=== PATIENT | female | born 1950 | race African-American/Black ===

== ENCOUNTER 2016-11-26 07:40 | Emergency (ER) | payer OTHER, MEDICAID ==
[~2016-11-26] VITALS: Ht 160 cm; Wt 88.9 kg
[~2016-11-26 07:40] MED LIST: AGG25C; CLON0.2T; FURO40TA4; GABA-494; GLIM4TAB42; MELO-86; METF-372; OMEPRAZOLE CAP 40MG; QUET50TA25; SERT-274
[2016-11-26] MEDS ORDERED: SODIUM CHLORIDE 0.9% 1,000 ML IV ONE (09:48)
[2016-11-26] MEDS ORDERED: ASPirin 81 mg TAB PO ONE (10:00)
[2016-11-26 11:37] VITALS: BP 162/87
== END 2016-11-26 13:33 | disposition left against medical advice (07) ==
LOC: EDBD 07:40 → ER 07:40
DX: I50.9 Heart failure, unspecified (principal); E11.9 Type 2 diabetes mellitus without complications; F17.210 Nicotine dependence, cigarettes, uncomplicated; Z79.84 Long term (current) use of oral hypoglycemic drugs; Z88.0 Allergy status to penicillin
CPT/HCPCS: 71010; 93005

== ENCOUNTER 2016-12-22 01:56 | Emergency (ER) | payer OTHER, MEDICAID ==
[~2016-12-22] VITALS: Ht 154.9 cm; Wt 113.4 kg
[2016-12-22 03:20] VITALS: BP 97/50
[2016-12-22] MEDS ORDERED: ALBUTEROL SULF 2.5 MG/0.5ML(0.5%) NEB SOLN HHN STA (03:29)
[2016-12-22] MEDS ORDERED: IPRATROPIUM BROM 0.5 MG/2.5ML INH SOL NEB ONE (03:30)
[2016-12-22 03:42] LABS: Eosinophils # (auto) 0 uL; Eosinophils % (auto) 0.1 % (0.0-7.0); Neutrophils # (auto) 8.4 uL; White Blood Cell 10.7 10^3/uL (4.4-10.8)
[2016-12-22 03:43] LABS: Basophils # (auto) 0.1 uL; Basophils % (auto) 0.7 % (0.0-2.0); Hematocrit 54.7 % (36.0-46.0); Hemoglobin 18.3 g/dL (12.2-16.2); Lymphocytes # (auto) 1.5 uL; Lymphocytes % (auto) 13.9 % (10.0-50.0); Mean Corpuscular Hemoglobin 28.1 pg (28.0-32.0); Mean Corpuscular Hgb Conc. 33.4 g/dL (32.0-36.0); Mean Corpuscular Volume 84.1 fL (80.0-100.0); Mean Platelet Volume 9.3 fL (6.9-10.8); Monocytes # (auto) 0.7 uL; Monocytes % (auto) 6.9 % (0.0-12.0); Neutrophils % (auto) 78.4 % (37.0-80.0); Nucleated Red Blood Cells % 0.1 %; Platelet Count (auto) 243 10^3/uL (140-450)
[2016-12-22 04:07] LABS: Albumin 3.3 g/dL (3.4-5.0); Alkaline Phosphatase 167 U/L (45-117); Anion Gap 13 (5-15); Aspartate Aminotransferase 9 U/L (15-37); BUN/Creatinine Ratio 11.6; Bilirubin, Total 0.6 mg/dL (0.2-1.0); Blood Urea Nitrogen 28 mg/dL (7-18); Calcium 9.5 mg/dL (8.5-10.1); Carbon Dioxide 22 mmol/L (21-32); Chloride 94 mmol/L (98-107); GFR African American 26 mL/min; GFR Non-African American 21 mL/min; Potassium 4.7 mmol/L (3.5-5.1); Sodium 129 mmol/L (136-145); Total Protein 9.1 g/dL (6.4-8.2)
[2016-12-22 04:08] LABS: B-Type Natriuretic Peptide 11.61 pg/mL (0-100)
[2016-12-22 04:09] LABS: Temperature: 21.9 C (20.0-25.0)
[2016-12-22 04:15] LABS: Glucose 422 mg/dL (74-106)
== END 2016-12-22 04:10 | disposition left against medical advice (07) ==
LOC: EDBD 01:56 → ER 02:04
DX: R06.02 Shortness of breath (principal); N28.9 Disorder of kidney and ureter, unspecified; D75.1 Secondary polycythemia; I10 Essential (primary) hypertension; E11.9 Type 2 diabetes mellitus without complications; J44.9 Chronic obstructive pulmonary disease, unspecified
CPT/HCPCS: 36415; 71010; 80053; 83880; 84484; 85025; 93005; 94640; 99285; J7040

== ENCOUNTER 2017-12-21 16:48 | Emergency (ER) | payer OTHER, MEDICAID ==
[~2017-12-21] VITALS: Ht 157.5 cm; Wt 81.6 kg
[~2017-12-21 16:48] MED LIST changes: -GABA-494; +GABA100C9; -MELO-86; +MELO1TAB56
[2017-12-21 16:57] VITALS: BP 157/107
== END 2017-12-21 21:11 | disposition left against medical advice (07) ==
LOC: ER 16:48 → EDUNIT# 16:48 → EDBD 16:48 → ER 21:11
DX: M25.512 Pain in left shoulder (principal); Z53.21 Procedure and treatment not carried out due to patient leaving prior to being seen by health care provider
CPT/HCPCS: 73030

== ENCOUNTER 2018-05-18 10:37 | Inpatient (IN) | payer OTHER, MEDICAID ==
[~2018-05-18] VITALS: Ht 160 cm; Wt 90.7 kg
[2018-05-18 13:27] LABS: Basophils # (auto) 0 uL; Basophils % (auto) 0.4 % (0.0-2.0); Eosinophils # (auto) 0.1 uL; Eosinophils % (auto) 1.2 % (0.0-7.0); Hematocrit 47.5 % (36.0-46.0); Hemoglobin 15.2 g/dL (12.2-16.2); Lymphocytes # (auto) 2.7 uL; Lymphocytes % (auto) 42.1 % (10.0-50.0); Mean Corpuscular Hemoglobin 27.9 pg (28.0-32.0); Mean Corpuscular Hgb Conc. 31.9 g/dL (32.0-36.0); Mean Corpuscular Volume 87.5 fL (80.0-100.0); Monocytes # (auto) 0.3 uL; Monocytes % (auto) 5.2 % (0.0-12.0); Neutrophils # (auto) 3.3 uL; Neutrophils % (auto) 51.1 % (37.0-80.0); Nucleated Red Blood Cells % 0.1 %; Platelet Count (auto) 204 10^3/uL (140-450); Red Blood Cells 5.43 10^6/uL (4.0-5.20); Red Cell Distribution Width 16.3 % (11.8-14.3); White Blood Cell 6.4 10^3/uL (4.4-10.8)
[2018-05-18 13:37] LABS: Partial Thromboplastin Time 25.7 sec (23.78-33.04); Prothrombin Time 10.7 sec (9.27-12.13)
[2018-05-18 13:43] LABS: Alanine Aminotransferase 21 U/L (13-56); Albumin 3.4 g/dL (3.4-5.0); Anion Gap 6 (5-15); Aspartate Aminotransferase 12 U/L (15-37); BUN/Creatinine Ratio 18.6; Blood Urea Nitrogen 46 mg/dL (7-18); Calcium 9.1 mg/dL (8.5-10.1); Carbon Dioxide 27 mmol/L (21-32); Chloride 101 mmol/L (98-107); GFR African American 25 mL/min; GFR Non-African American 21 mL/min; Glucose 248 mg/dL (74-106); Potassium 4.8 mmol/L (3.5-5.1); Sodium 134 mmol/L (136-145)
[2018-05-18 13:47] LABS: Alkaline Phosphatase 142 U/L (45-117); Bilirubin, Total 0.4 mg/dL (0.2-1.0); Total Protein 7.7 g/dL (6.4-8.2)
[2018-05-18] MEDS ORDERED: PROMETHAZINE HCL 25 MG/ML 1ML IV PRN (16:30)
[2018-05-18] MEDS ORDERED: cloNIDine HCL 0.1 MG TAB PO PRN (16:30)
[2018-05-18] MEDS: SODIUM CHLORIDE 0.9% 1,000 ML IV SCH (16:30)
[2018-05-18] MEDS ORDERED: NITROGLYCERIN 0.4 MG SL TAB SL PRN (16:30)
[2018-05-18] MEDS ORDERED: LACTULOSE 20Gm/30ML SOLN PO PRN (16:30)
[2018-05-18] MEDS ORDERED: DEXTROSE (50%) 50ML SYRG IV PRN (16:30)
[2018-05-18] MEDS ORDERED: MORPHINE SULFATE 4 MG/ML SYR/VIAL IV PRN (16:30)
[2018-05-18] MEDS ORDERED: TEMAZEPAM 15 MG CAP PO PRN (16:30)
[2018-05-18 17:25] LABS: Folate (Folic Acid) 8.22 ng/mL (5.38-24)
--- NOTE | 2018-05-18 17:42 | NUR ---
Telemetry admit from ER ALFONSO TRIPATHI admitted to Telemetry unit after SBAR received. Patient oriented to Isabel Rodgers, primary RN, unit, room, bed, and unit policies regarding patient care and visiting hours. Patient A&O x3, with no c/o pain. Patient now on continuous telemetry monitoring, tele box #17 and telemetry reading on arrival to unit is SR. Patient placed on bedside oxygen, weighed by bedscale and encouraged to call if they need something. All questions and concerns addressed, patient verbalized understanding.
[2018-05-18] MEDS: InsuLIN REG 1unit/0.01ml Soln (100units/ml) SC SCH ×2 (18:00→22:00)
[2018-05-18 18:55] LABS: Urine Bacteria FEW /hpf (None Seen); Urine Blood Negative /uL (Negative); Urine Mucus FEW (None Seen); Urine Specific Gravity 1.007 (1.001-1.035); Urine WBC <1 /hpf (0 - 5)
[2018-05-18 19:10] LABS: Alcohol, Urine < 3.0 mg/dL (0-5); Amphetamine Screen, Urine NEGATIVE (NEGATIVE); Barbiturate Scree,Urine NEGATIVE (NEGATIVE); Benzodiazephine Screen, Urine NEGATIVE (NEGATIVE); Cannabinoid Screen, Urine NEGATIVE (NEGATIVE); Cocaine Screen, Urine NEGATIVE (NEGATIVE); Opiate Scree,Urine NEGATIVE (NEGATIVE); Phencyclidine Screen, Urine NEGATIVE (NEGATIVE)
--- NOTE | 2018-05-18 19:15 | NUR ---
End of shift note: Patient is sitting in bed resting comfortably, no s/s of distress noted/stated. Bed at lowest position and call light within reach. Will endorse care to NOC RN.
[2018-05-18] MEDS: ACCU-CHEK COMFORT CURVE STRIP VI SCH (20:00)
[2018-05-18] MEDS: ATORVASTATIN 20 MG TAB PO SCH (21:36)
[2018-05-18] MEDS: ASPIRIN-DIPYRIDAMOLE (25/200MG) CAPSULE PO SCH (21:36)
[2018-05-18] MEDS: GABAPENTIN 100 MG CAP PO SCH (21:37)
[2018-05-18] MEDS: QUEtiapine FUMARATE 25 MG TAB PO SCH (21:37)
[2018-05-18 21:43] VITALS: BP 89/51
[2018-05-19] VITALS (7 sets, daily range): BP systolic 88–141; BP diastolic 44–71
[2018-05-19] MEDS: SODIUM CHLORIDE 0.9% 1,000 ML IV SCH ×3 (00:45→16:30)
[2018-05-19] MEDS: InsuLIN REG 1unit/0.01ml Soln (100units/ml) SC SCH ×5 (02:00→20:43)
[2018-05-19] MEDS: HYDROcodone-ACET 5/325MG TAB PO PRN (03:04)
[2018-05-19] MEDS: ACCU-CHEK COMFORT CURVE STRIP VI SCH ×6 (04:00→20:43)
[2018-05-19] MEDS: GABAPENTIN 100 MG CAP PO SCH ×3 (05:32→21:44)
[2018-05-19 06:42] LABS: Basophils # (auto) 0 uL; Basophils % (auto) 0.6 % (0.0-2.0); Eosinophils # (auto) 0.1 uL; Eosinophils % (auto) 0.8 % (0.0-7.0); Hematocrit 41.6 % (36.0-46.0); Hemoglobin 13.7 g/dL (12.2-16.2); Lymphocytes # (auto) 2.4 uL; Lymphocytes % (auto) 33.8 % (10.0-50.0); Mean Corpuscular Hemoglobin 28.5 pg (28.0-32.0); Mean Corpuscular Hgb Conc. 32.8 g/dL (32.0-36.0); Mean Corpuscular Volume 86.7 fL (80.0-100.0); Monocytes # (auto) 0.5 uL; Monocytes % (auto) 7.4 % (0.0-12.0); Neutrophils # (auto) 4.1 uL; Neutrophils % (auto) 57.4 % (37.0-80.0); Nucleated Red Blood Cells % 0.1 %; Platelet Count (auto) 213 10^3/uL (140-450); Red Blood Cells 4.79 10^6/uL (4.0-5.20); Red Cell Distribution Width 15.7 % (11.8-14.3); White Blood Cell 7.1 10^3/uL (4.4-10.8)
[2018-05-19 06:48] LABS: Potassium 4.3 mmol/L (3.5-5.1)
[2018-05-19 06:56] LABS: BUN/Creatinine Ratio 22.7; Bilirubin, Total 0.4 mg/dL (0.2-1.0); Calcium 8.8 mg/dL (8.5-10.1); Total Protein 6.4 g/dL (6.4-8.2)
[2018-05-19 07:18] LABS: Cholesterol 108 mg/dL (< 200); Creatine Kinase IFCC 71 U/L (26-192); HDL Cholesterol 32 mg/dL (40-59); LDL Cholesterol 56 mg/dL (< 100); Triglycerides 202 mg/dL (< 150)
--- NOTE | 2018-05-19 07:40 | NUR ---
Opening Shift Note Assumed care of patient, awake and alert. No S/S of distress/SOB or pain. Bed at lowest position and rené light within reach. Instructed on POC and to call for assistance PRN, will continue to monitor for changes Q1hr and PRN.
[2018-05-19] MEDS: SERTRALINE HCL 50 MG TAB PO SCH (09:11)
[2018-05-19] MEDS: ASPIRIN-DIPYRIDAMOLE (25/200MG) CAPSULE PO SCH ×2 (09:11→21:45)
[2018-05-19] MEDS: PANTOPRAZOLE 40 MG TAB PO SCH (09:11)
[2018-05-19] MEDS ORDERED: ASPirin 81 mg TAB PO SCH (10:00)
--- NOTE | 2018-05-19 11:10 | NUR ---
Obtained new wires for tele monitor box. Tele-box working well.
[2018-05-19] MEDS: ENOXAPARIN SOD 40 MG/0.4 ML SYRINGE SC SCH (12:09)
--- NOTE | 2018-05-19 13:24 | NUR ---
WOUND CARE NOTE: Wound care in to see patient per wound care request regarding "rash in the lower abdominal fold" that are noted present on admission. Bedside nurse took photograph of patient's skin integrity issue upon admission for reference. Patient is 68 y/o female with admitting diagnosis of ALOC, Renal Failure. She has history of Asthma, COPD, CVA, DM htn. Patient is resting in bed in Rm. 294A. Patient is awake and able to verbalize needs. Patient is in no stated pain at this time and she appears to be in no pain using Ko Mccullough Faces Pain Scale. She needs assistance in turning and repositioning. Her current Estuardo score is 14. Skin assessment done with assistance of another nurse, ISAAC Reilly. Noted intertriginous dermatitis to patient's lower abdominal fold and inner thighs. Skin is hyperpigmented, moist with odor. Patient is obese and has large abdominal pannus. Small open partial thickness skin tears noted to her lower abdominal fold and L inner thigh. She's receiving BID/PRN cleaning and application of Antifungal clear ointment to abdominal fold and thighs intertrigo and Barrier cream to sacral buttocks as preventative per MD order. No other wound noted, no pressure injury related issue noted. Repositioned patient for comfort facing her Rt side, redistributed pressure points with pillows. Patient tolerated well. Bed in low position with all safety precautions in placed. RECOMMENDATION: BID/PRN cleaning and application of Antifungal clear ointment to intertrigo, Barrier cream to sacral/buttocks/perineum per MD order, frequent turning and repositioning schedule as condition permits, redistribute pressure points with pillows,elevate heels on pillows, continue monitoring by wound care while patient is hospitalized. Addendum: 05/19/18 at 1746 by Vicky Lee RN Amended: Links added.
[2018-05-19] MEDS: ACETAMINOPHEN 500 MG TAB PO PRN (16:20)
--- NOTE | 2018-05-19 18:49 | NUR ---
End of shift note: Patient is comfortably resting in bed. No s/s of distress noted/stated. No c/o pain. Bed at lowest position and call light within reach. Will endorse care to NOC RN.
--- NOTE | 2018-05-19 19:10 | NUR ---
OPENING SHIFT NOTE ASSUMED CARE OF PATIENT FROM DAY SHIFT RN MONCHO. PATIENT IS RESTING IN BED WITH EVEN AND UNLABORED RESPIRATIONS. SHE IS ALERT AND ORIENTED X4 WITH NO S/S OF DISTRESS OR PAIN NOTED AT THIS TIME. PATIENT INSTRUCTED ON POC AND TO CALL FOR ASSIST PRN.
[2018-05-19] MEDS: MORPHINE SULFATE 4 MG/ML SYR/VIAL IV PRN (20:30)
[2018-05-19] MEDS: ATORVASTATIN 20 MG TAB PO SCH (21:44)
[2018-05-19] MEDS: QUEtiapine FUMARATE 25 MG TAB PO SCH (21:44)
--- NOTE | 2018-05-19 22:48 | NUR ---
WOUND CARE DONE AB FOLDS AND INNER THIGH FOLDS CLEANED WITH SOAP AND WATER, PATTED DRY, AND ANTIFUNGAL CREAM WAS APPLIED. BARRIER CREAM APPLIED TO SACRAL AREA AFTER BM. PATIENT TURNED AND MADE COMFORTABLE. WILL CONTINUE TO MONITOR.
[2018-05-20] MEDS: InsuLIN REG 1unit/0.01ml Soln (100units/ml) SC SCH ×7 (03:47→23:01)
[2018-05-20] MEDS: ACCU-CHEK COMFORT CURVE STRIP VI SCH ×7 (03:48→23:01)
[2018-05-20 05:00] VITALS: BP 118/58
--- NOTE | 2018-05-20 05:10 | NUR ---
PATIENT ACCIDENTLY PULLED OUT IV IV WAS PLACED IN RIGHT LEG. PATIENT STATED THAT SHE WAS MOVING HER LEGS AROUND, AND THAT IT CAUSED THE IV TO BE PULLED OUT.
--- NOTE | 2018-05-20 05:12 | NUR ---
IV INSERTION IV ACCESS OBTAINED VIA CLEAN STERILE TECHNIQUE. A 20 GAUGE CATHETER WAS PLACED IN THE LEFT LEG AFTER 2 ATTEMPTS. NO TRAUMA TO SITE. PATIENT TOLERATED WELL AND EDUCATED ON IV CARE.
[2018-05-20] MEDS: SODIUM CHLORIDE 0.9% 1,000 ML IV SCH ×3 (05:20→21:05)
[2018-05-20] MEDS: GABAPENTIN 100 MG CAP PO SCH ×3 (05:20→22:53)
--- NOTE | 2018-05-20 07:15 | NUR ---
CLOSING SHIFT NOTE PATIENT IS RESTING IN BED WITH EVEN AND UNLABORED RESPIRATIONS. NO S/S OF DISTRESS OR PAIN AT THIS TIME. BED IS IN LOWEST POSITION. CALL LIGHT IS IN REACH. CARE OF PATIENT IS TRANSFERRED TO DAY SHIFT ISAAC ROBERTSON.
--- NOTE | 2018-05-20 08:19 | NUR ---
BEDRAILS: Answered call light in room. Patient requesting to have all bed rails up x4. Educated patient about safety measures and how it is considered confinement if all four rails are up. Patient continues to insist all four rails be placed. All four rails placed and informed primary RN and MECHANICAL UNIT REPAIRER.
[2018-05-20 08:50] VITALS: BP 127/66
[2018-05-20 09:32] LABS: BUN/Creatinine Ratio 23.7; Calcium 8.6 mg/dL (8.5-10.1); Potassium 4.7 mmol/L (3.5-5.1)
[2018-05-20] MEDS: HYDROcodone-ACET 5/325MG TAB PO PRN ×2 (09:45→16:56)
--- NOTE | 2018-05-20 10:45 | NUR ---
Pt very restless and agitated, yelling out. Pt states that she "hurts allover". [place] given at this time.
--- NOTE | 2018-05-20 11:00 | NUR ---
Bladder training initiated at this time. Stevenson to be clamped times 4 hours. Plan of care explained to pt. Pt verbalized understanding and is much calmer, and cooperative.
--- NOTE | 2018-05-20 11:30 | NUR ---
Pt continues to be very agitated stating that she "just wants to go home now". Ativan given at this time due to heightened state of agitation.
[2018-05-20] MEDS: PANTOPRAZOLE 40 MG TAB PO SCH (12:15)
[2018-05-20] MEDS: SERTRALINE HCL 50 MG TAB PO SCH (12:15)
[2018-05-20] MEDS: ASPIRIN-DIPYRIDAMOLE (25/200MG) CAPSULE PO SCH ×2 (12:15→22:53)
[2018-05-20] MEDS: ENOXAPARIN SOD 40 MG/0.4 ML SYRINGE SC SCH (12:16)
[2018-05-20 12:55] VITALS: BP 132/80
--- NOTE | 2018-05-20 15:00 | NUR ---
Spoke with Mikey, pt's "boyfriend". He stated that he is pt's cloth brushing and sueding supervisor career and technology education teacher. Mikey stated that he does not have transportation and is unable to transport pt home upon discharge. He stated that a women by the name of Savanna does come to home weekly to help with pt care. He does not know her phone number.
--- NOTE | 2018-05-20 15:00 | NUR ---
Stevenson cath unclamped, with return of 200cc clear yellow urine. Pt remains calm and cooperative.
[2018-05-20 15:33] LABS: Sodium Urine 72 mmol/L (40-220)
[2018-05-20 15:35] LABS: Creatinine, Urine 113 mg/dL (30.0-125.0)
--- NOTE | 2018-05-20 16:00 | NUR ---
Stevenson cath clamped at this time, to remain clamped for four hours. Pt verbalizes understanding.
--- NOTE | 2018-05-20 16:00 | NUR ---
Phone number for taisha Corrales's business partner memory care director is not noted in charted. Pt stated that her number . Called place to this number to speak with Savanna regarding patient's discharge needs and transportation home. This number is no longer in service.
[2018-05-20 17:00] VITALS: BP 158/74
--- NOTE | 2018-05-20 17:00 | NUR ---
[place] given for c/o generalized pain. No other c/o pain or discomfort. Stevenson cath remains clamped.
--- NOTE | 2018-05-20 19:50 | NUR ---
Stevenson unclamped at this time patient complaining of discomfort at this time
[2018-05-20 20:00] VITALS: BP 158/67
[2018-05-20 22:00] VITALS: BP 158/67
[2018-05-20] MEDS: ATORVASTATIN 20 MG TAB PO SCH (22:53)
[2018-05-20] MEDS: QUEtiapine FUMARATE 25 MG TAB PO SCH (22:54)
--- NOTE | 2018-05-21 | NUR ---
Stevenson clamped at this time
[2018-05-21] MEDS: SODIUM CHLORIDE 0.9% 1,000 ML IV SCH ×2 (00:30→12:15)
[2018-05-21] MEDS: ACCU-CHEK COMFORT CURVE STRIP VI SCH ×5 (03:43→20:00)
[2018-05-21] MEDS: InsuLIN REG 1unit/0.01ml Soln (100units/ml) SC SCH ×5 (03:44→22:05)
[2018-05-21 05:00] VITALS: BP 123/65
[2018-05-21] MEDS: GABAPENTIN 100 MG CAP PO SCH ×3 (06:10→22:05)
[2018-05-21 08:00] VITALS: BP 142/54
[2018-05-21 08:59] VITALS: BP 132/69
[2018-05-21] MEDS: HYDROcodone-ACET 5/325MG TAB PO PRN ×2 (09:32→16:26)
[2018-05-21] MEDS: SERTRALINE HCL 50 MG TAB PO SCH (09:58)
[2018-05-21] MEDS: ENOXAPARIN SOD 40 MG/0.4 ML SYRINGE SC SCH (09:59)
[2018-05-21] MEDS: ASPIRIN-DIPYRIDAMOLE (25/200MG) CAPSULE PO SCH ×2 (09:59→22:05)
[2018-05-21] MEDS: PANTOPRAZOLE 40 MG TAB PO SCH (09:59)
[2018-05-21] MEDS ORDERED: ENOXAPARIN SOD 40 MG/0.4 ML SYRINGE SC SCH (10:00)
[2018-05-21 11:43] LABS: Basophils # (auto) 0.1 uL; Basophils % (auto) 0.9 % (0.0-2.0); Eosinophils # (auto) 0.1 uL; Eosinophils % (auto) 1.6 % (0.0-7.0); Hematocrit 43.3 % (36.0-46.0); Lymphocytes # (auto) 2.2 uL; Lymphocytes % (auto) 32.3 % (10.0-50.0); Mean Corpuscular Hemoglobin 27.9 pg (28.0-32.0); Mean Corpuscular Hgb Conc. 32.3 g/dL (32.0-36.0); Mean Corpuscular Volume 86.5 fL (80.0-100.0); Monocytes # (auto) 0.4 uL; Monocytes % (auto) 6.5 % (0.0-12.0); Neutrophils % (auto) 58.7 % (37.0-80.0); Nucleated Red Blood Cells % 0.1 %; Platelet Count (auto) 205 10^3/uL (140-450); Red Blood Cells 5.01 10^6/uL (4.0-5.20); Red Cell Distribution Width 16.1 % (11.8-14.3); White Blood Cell 6.8 10^3/uL (4.4-10.8)
[2018-05-21 11:45] LABS: Calcium 9.1 mg/dL (8.5-10.1); Potassium 5.4 mmol/L (3.5-5.1)
[2018-05-21 11:52] LABS: BUN/Creatinine Ratio 19.6; Bilirubin, Total 0.4 mg/dL (0.2-1.0); Total Protein 7.1 g/dL (6.4-8.2)
[2018-05-21 12:34] VITALS: BP 143/75
[2018-05-21 16:45] VITALS: BP 140/94
[2018-05-21] MEDS: LORazepam 0.5 MG TAB PO PRN (17:46)
[2018-05-21] MEDS: ATORVASTATIN 20 MG TAB PO SCH (22:05)
[2018-05-21] MEDS: QUEtiapine FUMARATE 25 MG TAB PO SCH (22:05)
[2018-05-21] MEDS: ACETAMINOPHEN 500 MG TAB PO PRN (22:06)
--- NOTE | 2018-05-21 22:06 | NUR ---
Rounds Patient awake and alert x4. No S/S of distress/SOB on room air, complains of generalized pain, medicated as ordered. Pt is irritable and demanding at times with mood changes. Will continue to monitor changes q1hr and PRN.
[2018-05-21 22:18] VITALS: BP 157/82
[2018-05-22] MEDS: InsuLIN REG 1unit/0.01ml Soln (100units/ml) SC SCH ×4 (00:27→12:00)
[2018-05-22] MEDS: ACCU-CHEK COMFORT CURVE STRIP VI SCH ×4 (00:27→12:00)
[2018-05-22] MEDS: LORazepam 0.5 MG TAB PO PRN (03:58)
--- NOTE | 2018-05-22 03:58 | NUR ---
Rounds Patient awake and alert x4. Patient medicated for anxiety per patient request. No S/S of distress/SOB on 2L nc or pain. Will continue to monitor changes q1hr and PRN. Call light within reach,bed alarm on.
[2018-05-22] MEDS: SODIUM CHLORIDE 0.9% 1,000 ML IV SCH (04:55)
--- NOTE | 2018-05-22 06:00 | NUR ---
Patient bathe/linen change Patient given complete bed bath after incontinence episode. Skin integrity assessed for any changes. Linens changed. Patient repositioned for comfort.
[2018-05-22 06:02] VITALS: BP 146/82
--- NOTE | 2018-05-22 06:30 | NUR ---
LAB Pt refused blood lab cussing at logging rafter laborer and nurses, educated on doctors orders patient continued to refuse states she is going to go home and " How the hell you come in at 630 in the morning to poke me?" Pt refused labs yesterday also.
[2018-05-22] MEDS: GABAPENTIN 100 MG CAP PO SCH (06:57)
--- NOTE | 2018-05-22 07:35 | NUR ---
OPENING NOTE ASSUMED CARE OF PT. PT IS LAYING ON BED, AWAKE. HOB LOW-FOWLERS. PT IS A&O X4. ON 2 LPM/NC, O2 SATURATION 98%. NO SIGNS OF SOB/DISTRESS. ON TELE #17, HR 69. SAFETY PRECAUTIONS IN PLACE INCLUDING, BED SET TO LOWEST POSITION/LOCKED. BEDSIDE RAILS UP X2. BED ALARM ON. CALL LIGHT WITHIN REACH. INSTRUCTED PT TO CALL FOR ASSISTANCE. DISCUSSED POC WITH PT. PT VERBALIZED UNDERSTANDING. WILL CONTINUE TO MONITOR Q 1HR AND PRN.
[2018-05-22 09:00] VITALS: BP 161/84
[2018-05-22] MEDS: PANTOPRAZOLE 40 MG TAB PO SCH (09:46)
[2018-05-22] MEDS: SERTRALINE HCL 50 MG TAB PO SCH (09:46)
[2018-05-22] MEDS: ASPIRIN-DIPYRIDAMOLE (25/200MG) CAPSULE PO SCH (09:46)
[2018-05-22] MEDS: ENOXAPARIN SOD 40 MG/0.4 ML SYRINGE SC SCH (09:47)
[2018-05-22] MEDS: MORPHINE SULFATE 4 MG/ML SYR/VIAL IV PRN (10:30)
[2018-05-22 13:00] VITALS: BP 153/75
[2018-05-22 13:15] VITALS: BP 161/84
--- NOTE | 2018-05-22 14:05 | NUR ---
Discharge instructions given as ordered. Encourage to follow up with Dr. Tineo, [id number] [place] [address]. All questions and concerns addressed. Patient verbalized understanding. No home medications held in Pharmacy returned to patient, and no. IV removed with catheter intact, pressure dressing applied. Telemetry unit # 17 returned to ICU.
--- NOTE | 2018-05-22 14:05 | NUR ---
ORDER AND CLINICALS FAXED TO [facility] REQUESTING HOME HEALTH
--- NOTE | 2018-05-22 14:10 | NUR ---
PATIENT REFUSED DISCHARGE PICTURE.
--- NOTE | 2018-05-22 15:20 | NUR ---
Patient taken to vehicle via wheelchair with all personal belongings, accompanied by staff and family member. No distress noted at time of departure.
--- NOTE | 2018-05-22 16:07 | NUR ---
PATIENT HAS BEEN ACCEPTED WITH [facility] WITH START OF CARE 05-25-2018. PHONE NUMBER IS [phone].
== END 2018-05-22 15:20 | disposition home or self-care (01) | DRG 682 ==
LOC: EDBD 10:37 → ER 10:41 → TELE 16:37 → TELE-WESTW 17:51
PROVIDERS: ADMIT Internal Medicine; ATTEND Internal Medicine Geriatric Medicine
DX: N17.0 Acute kidney failure with tubular necrosis (principal); G93.41 Metabolic encephalopathy; E11.21 Type 2 diabetes mellitus with diabetic nephropathy; E11.42 Type 2 diabetes mellitus with diabetic polyneuropathy; I13.10 Hypertensive heart and chronic kidney disease without heart failure, with stage 1 through stage 4 chronic kidney disease, or unspecified chronic kidney disease; D35.02 Benign neoplasm of left adrenal gland; E78.5 Hyperlipidemia, unspecified; E11.65 Type 2 diabetes mellitus with hyperglycemia; J44.9 Chronic obstructive pulmonary disease, unspecified; N18.9 Chronic kidney disease, unspecified; E86.0 Dehydration; E11.22 Type 2 diabetes mellitus with diabetic chronic kidney disease; F17.200 Nicotine dependence, unspecified, uncomplicated; R33.9 Retention of urine, unspecified; F32.9 Major depressive disorder, single episode, unspecified; K21.9 Gastro-esophageal reflux disease without esophagitis; K76.0 Fatty (change of) liver, not elsewhere classified; Z82.49 Family history of ischemic heart disease and other diseases of the circulatory system; Z83.3 Family history of diabetes mellitus; Z86.73 Personal history of transient ischemic attack (TIA), and cerebral infarction without residual deficits; Z90.710 Acquired absence of both cervix and uterus; Z88.0 Allergy status to penicillin
CPT/HCPCS: 36415; 51702; 70450; 71045; 74176; 76775; 80048; 80053; 80061; 80307; 81001; 82043; 82306; 82550; 82570; 82607; 82746; 82962; 83036; 83605; 83880; 83970; 84100; 84300; 84443; 84484; 84550; 85025; 85610; 85652; 85730; 87040; 87086; 93005; 97163; A6257; G0378; J1815

== ENCOUNTER 2018-07-10 20:17 | Emergency (ER) | payer OTHER, MEDICAID ==
[~2018-07-10] VITALS: Ht 160 cm; Wt 113.4 kg
[2018-07-10 21:06] VITALS: BP 162/86
== END 2018-07-10 22:27 | disposition left against medical advice (07) ==
LOC: ER 20:17 → EDBD 20:17 → ER 22:27
DX: M79.605 Pain in left leg (principal); M79.604 Pain in right leg; Z53.21 Procedure and treatment not carried out due to patient leaving prior to being seen by health care provider; W19.XXXA Unspecified fall, initial encounter; Y93.89 Activity, other specified; Y99.8 Other external cause status; Y92.89 Other specified places as the place of occurrence of the external cause

== ENCOUNTER 2018-07-11 01:17 | Emergency (ER) | payer OTHER, MEDICAID ==
[~2018-07-11] VITALS: Ht 160 cm; Wt 89.8 kg
[2018-07-11 06:03] VITALS: BP 137/73
[2018-07-11 06:03] LABS: Urine Bacteria MANY /hpf (None Seen); Urine Blood TRACE /uL (Negative); Urine Hyaline Cast MOD /lpf (0 - 2); Urine Mucus FEW (None Seen); Urine WBC 49 /hpf (0 - 5); Urine WBC Clumps PRESENT /hpf (None Seen)
[2018-07-11 06:09] LABS: Basophils # (auto) 0.1 uL; Basophils % (auto) 1.2 % (0.0-2.0); Eosinophils # (auto) 0 uL; Eosinophils % (auto) 0.3 % (0.0-7.0); Hematocrit 46.1 % (36.0-46.0); Hemoglobin 15.6 g/dL (12.2-16.2); Lymphocytes # (auto) 3.6 uL; Lymphocytes % (auto) 32.4 % (10.0-50.0); Mean Corpuscular Hemoglobin 29.5 pg (28.0-32.0); Mean Corpuscular Hgb Conc. 33.7 g/dL (32.0-36.0); Mean Corpuscular Volume 87.3 fL (80.0-100.0); Monocytes # (auto) 0.7 uL; Monocytes % (auto) 6.6 % (0.0-12.0); Neutrophils # (auto) 6.5 uL; Neutrophils % (auto) 59.5 % (37.0-80.0); Nucleated Red Blood Cells % 0.3 %; Platelet Count (auto) 244 10^3/uL (140-450); Red Blood Cells 5.28 10^6/uL (4.0-5.20); Red Cell Distribution Width 14.9 % (11.8-14.3)
[2018-07-11 06:22] LABS: Albumin 3.6 g/dL (3.4-5.0); Calcium 9.3 mg/dL (8.5-10.1)
[2018-07-11 06:25] LABS: BUN/Creatinine Ratio 29.7
[2018-07-11 06:28] LABS: Bilirubin, Total 0.4 mg/dL (0.2-1.0); Total Protein 7.5 g/dL (6.4-8.2)
[2018-07-11] MEDS ORDERED: SODIUM CHLORIDE 0.9% 500 ML IV ONE (06:45)
[2018-07-11] MEDS ORDERED: InsuLIN REG 1unit/0.01ml Soln (100units/ml) IV ONE (06:45)
[2018-07-11] MEDS ORDERED: LEVOFLOXACIN 500MG 100 ML IV ONE (06:45)
== END 2018-07-11 09:03 | disposition left against medical advice (07) ==
LOC: ER 01:21
DX: N39.0 Urinary tract infection, site not specified (principal); R53.1 Weakness; M79.604 Pain in right leg; M79.605 Pain in left leg; E11.65 Type 2 diabetes mellitus with hyperglycemia; J44.9 Chronic obstructive pulmonary disease, unspecified; I10 Essential (primary) hypertension; F17.210 Nicotine dependence, cigarettes, uncomplicated; Z90.710 Acquired absence of both cervix and uterus; Z90.89 Acquired absence of other organs; Z88.0 Allergy status to penicillin; Z79.899 Other long term (current) drug therapy
CPT/HCPCS: 36415; 51702; 71045; 80053; 81001; 83880; 84484; 85025

== ENCOUNTER 2018-08-18 18:32 | Emergency (ER) | payer OTHER, MEDICAID ==
[~2018-08-18] VITALS: Ht 162.6 cm; Wt 108.9 kg
[2018-08-18 21:10] LABS: Basophils # (auto) 0 uL; Basophils % (auto) 0.5 % (0.0-2.0); Eosinophils # (auto) 0 uL; Eosinophils % (auto) 0.2 % (0.0-7.0); Hematocrit 51.4 % (36.0-46.0); Hemoglobin 16.7 g/dL (12.2-16.2); Lymphocytes # (auto) 2.4 uL; Lymphocytes % (auto) 29.3 % (10.0-50.0); Mean Corpuscular Hemoglobin 28.3 pg (28.0-32.0); Mean Corpuscular Hgb Conc. 32.4 g/dL (32.0-36.0); Mean Corpuscular Volume 87.4 fL (80.0-100.0); Monocytes # (auto) 0.5 uL; Monocytes % (auto) 5.8 % (0.0-12.0); Neutrophils # (auto) 5.3 uL; Neutrophils % (auto) 64.2 % (37.0-80.0); Nucleated Red Blood Cells % 0.1 %; Platelet Count (auto) 225 10^3/uL (140-450); Red Blood Cells 5.89 10^6/uL (4.0-5.20); Red Cell Distribution Width 14.9 % (11.8-14.3); White Blood Cell 8.2 10^3/uL (4.4-10.8)
[2018-08-18 21:28] LABS: Albumin 3.9 g/dL (3.4-5.0); Anion Gap 10 (5-15); Blood Urea Nitrogen 61 mg/dL (7-18); Calcium 9.9 mg/dL (8.5-10.1); Carbon Dioxide 27 mmol/L (21-32); Chloride 99 mmol/L (98-107); Glucose 341 mg/dL (74-106); Magnesium 2.3 mg/dL (1.6-2.6); Potassium 5.1 mmol/L (3.5-5.1); Sodium 136 mmol/L (136-145)
[2018-08-18 21:33] LABS: Alanine Aminotransferase 22 U/L (13-56); Alkaline Phosphatase 146 U/L (45-117); Aspartate Aminotransferase 13 U/L (15-37); BUN/Creatinine Ratio 16.5; Bilirubin, Total 0.5 mg/dL (0.2-1.0); GFR African American 16 mL/min; GFR Non-African American 13 mL/min; Total Protein 8.3 g/dL (6.4-8.2)
[2018-08-18] MEDS ORDERED: InsuLIN REG 1unit/0.01ml Soln (100units/ml) IV ONE (21:45)
[2018-08-18] MEDS ORDERED: IODIXANOL 320MG/ML 100ML BTL IV ONE (21:47)
[2018-08-19 01:00] VITALS: BP 129/66
== END 2018-08-18 23:53 | disposition home or self-care (01) ==
LOC: EDBD 18:32 → ER 18:40
DX: K52.9 Noninfective gastroenteritis and colitis, unspecified (principal); J44.9 Chronic obstructive pulmonary disease, unspecified; E11.9 Type 2 diabetes mellitus without complications; I10 Essential (primary) hypertension; F17.210 Nicotine dependence, cigarettes, uncomplicated; E66.01 Morbid (severe) obesity due to excess calories; Z90.710 Acquired absence of both cervix and uterus; Z86.73 Personal history of transient ischemic attack (TIA), and cerebral infarction without residual deficits; Z68.41 Body mass index [BMI] 40.0-44.9, adult; Z88.0 Allergy status to penicillin
CPT/HCPCS: 36415; 74176; 80053; 82962; 83735; 84484; 85025; 93005; 94761; 96374; 99284; J1815; Q9967

== ENCOUNTER 2019-03-28 06:57 | Emergency (ER) | payer MEDICAID, OTHER ==
[~2019-03-28] VITALS: Ht 165.1 cm; Wt 86.2 kg
[2019-03-28 07:42] LABS: Basophils # (auto) 0 uL; Basophils % (auto) 0.5 % (0.0-2.0); Eosinophils # (auto) 0 uL; Hematocrit 45.7 % (36.0-46.0); Hemoglobin 14.7 g/dL (12.2-16.2); Lymphocytes # (auto) 0.9 uL; Lymphocytes % (auto) 10.4 % (10.0-50.0); Mean Corpuscular Hemoglobin 27.7 pg (28.0-32.0); Mean Corpuscular Hgb Conc. 32.2 g/dL (32.0-36.0); Mean Corpuscular Volume 86.1 fL (80.0-100.0); Monocytes # (auto) 0.9 uL; Monocytes % (auto) 10.4 % (0.0-12.0); Neutrophils # (auto) 6.8 uL; Neutrophils % (auto) 78.7 % (37.0-80.0); Platelet Count (auto) 191 10^3/uL (140-450); Red Blood Cells 5.31 10^6/uL (4.0-5.20); Red Cell Distribution Width 14.9 % (11.8-14.3); White Blood Cell 8.6 10^3/uL (4.4-10.8)
[2019-03-28 08:00] LABS: Albumin 3.1 g/dL (3.4-5.0); Calcium 9.2 mg/dL (8.5-10.1); Potassium 4.7 mmol/L (3.5-5.1)
[2019-03-28 08:02] LABS: INR 1.05 (0.9-1.15); Partial Thromboplastin Time 28.1 sec (23.64-32.05)
[2019-03-28 08:04] LABS: BUN/Creatinine Ratio 25.5; Bilirubin, Total 0.3 mg/dL (0.2-1.0)
[2019-03-28 10:35] LABS: Urine Amorphous Crystal MOD /hpf (None Seen); Urine Bacteria FEW /hpf (None Seen); Urine Blood 1+ /uL (Negative); Urine Hyaline Cast MOD /lpf (0 - 2); Urine Specific Gravity 1.023 (1.001-1.035); Urine WBC 1 /hpf (0 - 5)
[2019-03-28] MEDS: SODIUM CHLORIDE 0.9% 1,000 ML IV ONE (12:26)
[2019-03-28] MEDS: FUROSEMIDE 40 MG/4 ML VIAL IV ONE (13:49)
[2019-03-28 22:04] VITALS: BP 133/74
== END 2019-03-28 23:35 | disposition home or self-care (01) ==
LOC: EDBD 06:57 → ER 06:57
DX: E11.65 Type 2 diabetes mellitus with hyperglycemia (principal); E11.21 Type 2 diabetes mellitus with diabetic nephropathy; E44.1 Mild protein-calorie malnutrition; R09.89 Other specified symptoms and signs involving the circulatory and respiratory systems; J44.9 Chronic obstructive pulmonary disease, unspecified; I10 Essential (primary) hypertension
CPT/HCPCS: 36415; 71045; 80053; 81001; 83735; 83880; 84443; 84484; 85025; 85610; 85730; 93005; 96374; 99284; J1940; J7030

== ENCOUNTER 2019-04-09 06:08 | Inpatient (IN) | payer OTHER ==
[~2019-04-09] VITALS: Ht 172.7 cm
[2019-04-09] VITALS (46 sets, daily range): BP systolic 101–139; BP diastolic 32–58
[2019-04-09] MEDS ORDERED: SUCCINYLCHOLINE CHLORIDE 20 MG/ML 10ML VIAL IV ONE ×3 (06:32→13:30)
[2019-04-09] MEDS ORDERED: ETOMIDATE (2MG/ML) 20ML VIAL IV ONE ×3 (06:32→13:30)
[2019-04-09] MEDS ORDERED: MIDAZOLAM DRIP 50 mg/50mL 50 ML IV SCH (06:45)
[2019-04-09] MEDS ORDERED: MIDAZOLAM DRIP 50 mg/50mL 50 ML IV ONE ×2 (06:46→09:19)
[2019-04-09 07:03] LABS: Basophils # (auto) 0.1 uL; Basophils % (auto) 0.2 % (0.0-2.0); Eosinophils # (auto) 0 uL; Eosinophils % (auto) 0.1 % (0.0-7.0); Hemoglobin 14.5 g/dL (12.2-16.2); Lymphocytes # (auto) 2.5 uL; Lymphocytes % (auto) 10.5 % (10.0-50.0); Mean Corpuscular Hemoglobin 27.4 pg (28.0-32.0); Mean Corpuscular Hgb Conc. 32.2 g/dL (32.0-36.0); Mean Corpuscular Volume 85.1 fL (80.0-100.0); Monocytes # (auto) 1.9 uL; Monocytes % (auto) 7.8 % (0.0-12.0); Neutrophils # (auto) 19.5 uL; Neutrophils % (auto) 81.4 % (37.0-80.0); Platelet Count (auto) 438 10^3/uL (140-450); Red Blood Cells 5.29 10^6/uL (4.0-5.20); Red Cell Distribution Width 15.1 % (11.8-14.3); White Blood Cell 23.9 10^3/uL (4.4-10.8)
[2019-04-09] MEDS ORDERED: LEVOFLOXACIN 500MG 100 ML IV ONE (07:15)
[2019-04-09 07:26] LABS: BUN/Creatinine Ratio 33.6; Calcium 9.3 mg/dL (8.5-10.1); Magnesium 1.8 mg/dL (1.6-2.6); Potassium 4.7 mmol/L (3.5-5.1)
[2019-04-09 07:31] LABS: Bilirubin, Total 0.4 mg/dL (0.2-1.0); Total Protein 8.7 g/dL (6.4-8.2)
--- NOTE | 2019-04-09 07:45 | NUR ---
REPORT RECEIVED FROM AUTOMOBILE SERVICE STATION MANAGER RN PATIENT ON MECHANICAL VENTILATOR, ON VERSED FOR SEDATION, ABDOMEN LARGE, ROUND, AND SOFT, NGT CLAMPED AT THIS TIME. SEBASTIAN DRAINING CLEAR, YELLOW URINE. SKIN INTEGRITY SEE INTERVENTION
[2019-04-09 08:04] LABS: Albumin 2.6 g/dL (3.4-5.0)
[2019-04-09] MEDS ORDERED: PROPOFOL 100 ML IV ONE (08:12)
[2019-04-09] MEDS ORDERED: MORPHINE SULF INJ 2 MG/ML SYRINGE 1ML IV PRN (08:30)
[2019-04-09] MEDS ORDERED: SODIUM CHLORIDE 0.9% 1,000 ML IV SCH (08:30)
[2019-04-09] MEDS ORDERED: DEXTROSE (50%) 50ML SYRG IV PRN (08:30)
[2019-04-09] MEDS ORDERED: SODIUM CHLORIDE 0.9% 500 ML IV ONE (08:30)
[2019-04-09] MEDS ORDERED: ACETAMINOPHEN 500 MG TAB PO PRN (08:30)
[2019-04-09] MEDS ORDERED: ONDANSETRON HCL 4 MG/2 ML VIAL IV PRN (08:30)
[2019-04-09 08:31] LABS: Lactic Acid w/Reflex 4.1 mmol/L (0.4-2.0)
--- NOTE | 2019-04-09 08:45 | NUR ---
ECHO AT BEDSIDE
[2019-04-09] MEDS: fentaNYL Drip 2500mCg/250mlNS 250 ML IV SCH (08:49)
[2019-04-09] MEDS ORDERED: PROPOFOL 100 ML IV SCH (08:49)
[2019-04-09] MEDS ORDERED: NOREPINEPHRINE 8 MG/250ML KIT 250 ML IV ONE (08:49)
[2019-04-09] MEDS: NOREPINEPHRINE 8 MG/250ML KIT 250 ML IV SCH ×2 (09:05→17:25)
[2019-04-09] MEDS: PROPOFOL 100 ML IV SCH ×3 (09:13→15:53)
[2019-04-09] MEDS ORDERED: NITROGLYCERIN 0.4 MG SL TAB SL PRN (10:00)
[2019-04-09] MEDS: ENOXAPARIN SOD 30 MG/0.3 ML SYRINGE SC SCH (10:18)
[2019-04-09] MEDS: AZITHROMYCIN 500MG/ 250ML 250 ML IV SCH (10:18)
[2019-04-09] MEDS: SODIUM CHLORIDE 0.9% 1,000 ML IV SCH ×2 (10:18→11:22)
[2019-04-09] MEDS: FAMOTIDINE (10MG/ML) 2ML VL IV SCH (10:18)
[2019-04-09] MEDS: MIDAZOLAM DRIP 50 mg/50mL 50 ML IV SCH ×2 (11:22→14:08)
--- NOTE | 2019-04-09 11:40 | NUR ---
CENTRAL LINE PLACED BY DR. ROONEY
[2019-04-09] MEDS: InsuLIN REG 1unit/0.01ml Soln (100units/ml) SC SCH ×2 (12:00→18:00)
[2019-04-09] MEDS: IPRATROPIUM BROM 0.5 MG/2.5ML INH SOL NEB SCH ×2 (12:00→18:11)
[2019-04-09] MEDS: ACCU-CHEK COMFORT CURVE STRIP VI SCH ×2 (12:00→18:01)
[2019-04-09] MEDS: LEVALBUTEROL HCL 1.25 MG/3 ML NEB NEB SCH ×2 (12:00→18:11)
--- NOTE | 2019-04-09 14:01 | NUR ---
Respiratory note: FIO2 DECREASED TO 40% AT THIS TIME. ISAAC NAVARRETE MADE AWARE OF CHANGE.
--- NOTE | 2019-04-09 14:38 | NUR ---
DR. BARRERA AT BEDSIDE
--- NOTE | 2019-04-09 14:49 | NUR ---
ULTRASOUND AT BEDSIDE FOR ARTERIAL ULTRASOUND
--- NOTE | 2019-04-09 14:58 | NUR ---
URINE SENT TO LAB VIA BULLET
--- NOTE | 2019-04-09 15:50 | NUR ---
REPORT GIVEN TO MICK GRAY
[2019-04-09 15:54] LABS: Urine Bacteria NONE SEEN /hpf (None Seen); Urine Blood 2+ /uL (Negative); Urine Hyaline Cast MANY /lpf (0 - 2); Urine Mucus FEW (None Seen); Urine Specific Gravity 1.021 (1.001-1.035); Urine WBC 18 /hpf (0 - 5)
--- NOTE | 2019-04-09 16:00 | NUR ---
Respiratory note: PATIENT TRANSPORTED TO ICU BED 4 WITH ISAAC NAVARRETE. SHE WAS TAKEN OFF THE VENTILATOR AND BAGGED VIA AMBU-BAG WITH 100% FIO2 FOR DURATION OF TRIP. UPON ARRIVAL TO ICU SHE WAS PLACED BACK ON MECHANICAL VENTILATOR V9 WITH ALL PREVIOUSLY ORDERED SETTINGS. TRANSPORT COMPLETED WITHOUT INCIDENT.
--- NOTE | 2019-04-09 16:05 | NUR ---
RECEIVED PATIENT FROM ER PER STRETCHER ON PORTABLE DEVELOPMENT EDITOR AND OXYGEN. NO FAMILY PRESENT AND NO CONTACT INFORMATION AVAILABLE. UNABLE TO COMPLETE ADMISSION. PHYSICAL ASSESSMENT COMPLETED.
--- NOTE | 2019-04-09 16:09 | NUR ---
PATIENT TRANSFERRED TO ROOM 104 VIA ACLS GUIDELINES
[2019-04-09] MEDS ORDERED: SODIUM CHLORIDE 0.9% 1,000 ML IV ONE (16:15)
--- NOTE | 2019-04-09 17:12 | NUR ---
WOUND CARE NOTE: Wound care in to see patient due to low Estuardo score of 12 and intubation status, putting patient to high risk for skin breakdown. Patient is 69 y/o female with admitting diagnosis of Sepsis. Patient with history of Hyperlipidemia, COPD, CVA, DM htn. Patient is resting in ICU bed in Rm. 104. Patient is intubated,sedated and mechanically ventilated. Patient appears to be in no pain using Ko Mccullough Faces Pain Scale. ISAAC Garrett at bedside. No open wound noted other than multi dry intact scabs to patient's bilateral lower leg/shins, more on Rt beal than left, thigh, yellow fungal toe nails and intertriginous dermatitis to patient's lower abdominal fold. Lower abdominal fold skin is hyperpigmented, moist with mild odor. Patient is obese and has large abdominal pannus. Cleansed patient's lower abdominal fold with mild soap and water,patted dry and applied clean linen to help wick moisture. Patient tolerated well. ISAAC Garrett at bedside. RECOMMENDATION: BID/PRN cleaning and application of Barrier cream to sacral/buttocks/perineum and lower abdominal fold per MD order, frequent turning and repositioning schedule as condition permits, redistribute pressure points with pillows,elevate heels on pillows, continue monitoring by wound care while patient is mechanically ventilated. Addendum: 04/09/19 at 1828 by Vicky Lee RN Amended: Links added.
[2019-04-09 18:11] LABS: Basophils # (auto) 0 uL; Basophils % (auto) 0.1 % (0.0-2.0); Eosinophils # (auto) 0 uL
[2019-04-09 18:13] LABS: Hematocrit 37.2 % (36.0-46.0); Lymphocytes % (auto) 9.5 % (10.0-50.0); Mean Corpuscular Hemoglobin 27.1 pg (28.0-32.0); Mean Corpuscular Hgb Conc. 32.4 g/dL (32.0-36.0); Mean Corpuscular Volume 83.5 fL (80.0-100.0); Monocytes # (auto) 1.9 uL; Monocytes % (auto) 9.1 % (0.0-12.0); Neutrophils # (auto) 16.7 uL; Neutrophils % (auto) 81.3 % (37.0-80.0); Platelet Count (auto) 354 10^3/uL (140-450); Red Blood Cells 4.45 10^6/uL (4.0-5.20); Red Cell Distribution Width 14.6 % (11.8-14.3); White Blood Cell 20.6 10^3/uL (4.4-10.8)
[2019-04-09 18:15] LABS: Calcium 9.1 mg/dL (8.5-10.1); Potassium 4.2 mmol/L (3.5-5.1)
[2019-04-09 18:19] LABS: BUN/Creatinine Ratio 32.5
--- NOTE | 2019-04-09 23:45 | NUR ---
assisted pt to toilet and back to bed. safety measures are in place
[2019-04-10] VITALS (104 sets, daily range): BP systolic 77–125; BP diastolic 32–54
[2019-04-10] MEDS: LEVALBUTEROL HCL 1.25 MG/3 ML NEB NEB SCH ×5 (00:07→23:43)
--- NOTE | 2019-04-10 01:12 | NUR ---
vs stable pt remains intubated and sedated, vs stable at this time. no ss of distress noted
--- NOTE | 2019-04-10 03:17 | NUR ---
suction canisters and tubing changed
[2019-04-10 04:18] LABS: Basophils # (auto) 0 uL; Basophils % (auto) 0.1 % (0.0-2.0); Eosinophils # (auto) 0 uL; Hemoglobin 11.1 g/dL (12.2-16.2)
[2019-04-10 04:22] LABS: Hematocrit 34.1 % (36.0-46.0); Lymphocytes # (auto) 1.8 uL; Lymphocytes % (auto) 9.9 % (10.0-50.0); Mean Corpuscular Hemoglobin 26.9 pg (28.0-32.0); Mean Corpuscular Hgb Conc. 32.5 g/dL (32.0-36.0); Mean Corpuscular Volume 82.9 fL (80.0-100.0); Monocytes # (auto) 1.6 uL; Monocytes % (auto) 8.4 % (0.0-12.0); Neutrophils # (auto) 15.1 uL; Neutrophils % (auto) 81.6 % (37.0-80.0); Platelet Count (auto) 327 10^3/uL (140-450); Red Blood Cells 4.11 10^6/uL (4.0-5.20); Red Cell Distribution Width 14.7 % (11.8-14.3); White Blood Cell 18.5 10^3/uL (4.4-10.8)
[2019-04-10 04:38] LABS: Potassium 3.8 mmol/L (3.5-5.1)
[2019-04-10 04:45] LABS: BUN/Creatinine Ratio 35.9; Calcium 8.7 mg/dL (8.5-10.1); Phosphorus 3.2 mg/dL (2.5-4.90)
[2019-04-10] MEDS: MIDAZOLAM DRIP 50 mg/50mL 50 ML IV SCH ×3 (05:38→21:49)
[2019-04-10] MEDS: SODIUM CHLORIDE 0.9% 1,000 ML IV SCH ×2 (05:39→12:00)
[2019-04-10] MEDS: InsuLIN REG 1unit/0.01ml Soln (100units/ml) SC SCH ×4 (06:00→17:42)
[2019-04-10] MEDS: IPRATROPIUM BROM 0.5 MG/2.5ML INH SOL NEB SCH ×3 (06:02→18:20)
[2019-04-10] MEDS: ACCU-CHEK COMFORT CURVE STRIP VI SCH ×4 (06:14→17:42)
--- NOTE | 2019-04-10 07:22 | NUR ---
report given and care endorsed to susan broderick
--- NOTE | 2019-04-10 08:30 | NUR ---
FENTANYL GTT STARTED AT THIS TIME: STATUS PATIENT STARTED ON 200 MCG/HR OF FENTANYL AT THIS TIME DUE TO INCREASED RR IN THE MID 30'S. PATIENT ALSO RUNNING A FEVER THIS AM. COOLING MEASURES IN PLACE AT THIS TIME. CURRENT TEMP 102.4 ORALLY. CONTINUE CARE.
[2019-04-10] MEDS: fentaNYL Drip 2500mCg/250mlNS 250 ML IV SCH (08:43)
[2019-04-10] MEDS: NOREPINEPHRINE 8 MG/250ML KIT 250 ML IV SCH ×2 (08:43→14:00)
[2019-04-10] MEDS: cefTRIAXone 1GM/50ML D5W 50 ML IV SCH (08:43)
--- NOTE | 2019-04-10 09:00 | NUR ---
OXYGENATION PATIENT'S FIO2 INCREASED TO 90% BY Sunil MARIE. O2 SATS WERE 86% PER THE R.T. WILL CONTINUE TO MONITOR CLOSELY.
[2019-04-10] MEDS: ENOXAPARIN SOD 30 MG/0.3 ML SYRINGE SC SCH (10:30)
[2019-04-10] MEDS: FAMOTIDINE (10MG/ML) 2ML VL IV SCH (10:30)
[2019-04-10] MEDS: AZITHROMYCIN 500MG/ 250ML 250 ML IV SCH (10:30)
--- NOTE | 2019-04-10 10:30 | NUR ---
STATUS CHANGE AFTER TURNING PATIENT TO RIGHT SIDE, TO PREVENT SKIN BREAKDOWN, PATIENT'S SBP NOW STAYING IN THE LOW 70"S. O2 SATS DECREASED TO 89%. INCREASED PATIENT LEVOPHED GTT AT THIS TIME. ALSO SUCTIONED PATIENT AND REMOVED THICK, MODERATE AMOUNT OF BROWN SECRETIONS. O2 SATS INCREASED THEN TO 93% ON 90% FIO2 AT THIS TIME. ALSO CHANGED RATES OF PT'S SEDATION TO HELP WITH BP. REMOVED PILLOWS FROM UNDER PATIENT. PATIENT LAYING SUPINE AT THIS TIME. BP RECOVERED TO LOW 90'S NOW AT THIS TIME. CONTINUE CARE. MD'S TO BE MADE AWARE.
--- NOTE | 2019-04-10 12:00 | NUR ---
DR. DRAKE AT BEDSIDE: ORDERS MD UPDATED ON PT'S STATUS, URINE OUTPUT AND LABS FOR TODAY. ORDERS GIVEN AND TO BE CARRIED OUT. CONTINUE CARE.
[2019-04-10] MEDS: BUMETANIDE INJECTION 12.5 MG in GIVE UN-DILUTED 0 ML IV SCH (13:59)
--- NOTE | 2019-04-10 14:00 | NUR ---
BUMEX GTT STARTED AT THIS TIME. PER MD ORDERS. GTT AT 2 ML/HR. CONTINUE CARE.
--- NOTE | 2019-04-10 14:00 | NUR ---
DR. CARD AT BEDSIDE: ORDERS MD UPDATED ON PT'S STATUS, LABS AND POC FOR TODAY. ORDERS GIVEN AND TO BE CARRIED OUT. MAY CALL MD IF PATIENT'S HR SUSTAINS OVER A RATE OF 120 BPM AFTER STARING THE DOPAMINE GTT. DOPAMINE GTT STARTED FOR RENAL DOSING.
[2019-04-10] MEDS ORDERED: VANCOMYCIN PER PHARMACY 0 MG IV SCH (14:15)
[2019-04-10] MEDS ORDERED: FLUCONAZOLE 200MG/100ML 100 ML IV ONE (14:15)
[2019-04-10] MEDS ORDERED: VANCOMYCIN 1GM/250ML 250 ML IV ONE (14:15)
[2019-04-10] MEDS: DOPamine 1600MCG/ML D5W 250 ML IV SCH (14:20)
--- NOTE | 2019-04-10 14:20 | NUR ---
DOPAMINE GTT STARTED: RENAL DOSING STARTED GTT AT THIS TIME AT SET RATE OF 2.5 MCG/KG/MIN. WT. BASED OFF 85 KG. CURRENT HR SR 98, BP 90/37. WILL CONTINUE TO MONITOR. IF HR GETS > 120 AND SUSTAINS, WILL THEN CALL DR. CARD FOR FURTHER ORDERS.
--- NOTE | 2019-04-10 18:00 | NUR ---
DR. JACK AT BEDSIDE: ORDERS MD UPDATED ON PT'S STATUS, LABS AND HEMODYNAMICS AT THIS TIME. ORDERS GIVEN AND TO BE CARRIED OUT. WILL CONTINUE TO MONITOR.
--- NOTE | 2019-04-10 19:26 | NUR ---
OPEN RECEIVED REPORT AND ASSUMED CARE OF FEMALE PT ORALLY INTUBATED AND SEDATED. PT IS TOLD ABOUT CARE PRIOR TO CARE TO BE PROVIDED. PUPILS ARE 3 AND NON REACTIVE. PT DOES NOT HAVE A COUGH OR GAG REFLEX. PT IS CONNECTED TO ICU MONITORS AND VS ARE STABLE AT THIS TIME. RESPIRATIONS ARE EQUAL AND UNLABORED. PT HAS R IJ TLC, R FA IV AND L FA 22 G. ALL DARLYN FLUSHED WITH NS, NO RESISTANCE NOTED, IVS ARE PATENT, AND APPEAR ASYMPTOMATIC. PT IS ON FENTANYL, VERSED, PROPOFOL, NS, LEVOPHED, BUMEX AND DOPAMINE. PT HAS PILLOW CASES UNDER BREAST AND ABDOMINAL FOLDS TO HELP ABSORB MOISTURE TO PREVENT SKIN BREAK DOWN. HYPOACTIVE BOWEL SOUNDS. PT HAS SEBASTIAN HANGING BELOW BLADDER DRAINING LT GREG URINE WITH SEDIMENT TO GRAVITY. PT IS LAYING IN BED, NO SS OF DISTRESS NOTED AT THIS TIME. BED IS IN LOWEST POSITION, WHEELS LOCKED,2 SIDE RAILS UP. HOB 45*. PT IS IN FULL VIEW OF RN STATION. PILLOWS UNDER DENNIS PROMINENCES TO OFFLOAD PRESSURE FOR COMFORT AND SUPPORT. WILL CONTINUE TO CARE FOR AND MONITOR.
--- NOTE | 2019-04-10 21:00 | NUR ---
PT DESATS WHEN TURNED TO THE RIGHT PT WILL BE REPOSITIONED FROM SUPINE TO LEFT. WILL TRY TO TURN TO THE RIGHT IF PT TOLERATES THE CARE
--- NOTE | 2019-04-10 23:12 | NUR ---
PT VS STABLE PT REMAINS INTUBATED AND SEDATED, VS ARE STABLE AT THIS TIME. NO SS OF DISTRESS NOTED. WILL CONTINUE TO CARE FOR AND MONITOR
[2019-04-11] VITALS (99 sets, daily range): BP systolic 65–185; BP diastolic 25–59
--- NOTE | 2019-04-11 00:07 | NUR ---
BS INSULIN PT BS DETERMINED THAT THE PT REQUIRED INSULIN. INSULIN WAS GIVEN TO THE PATIENT ACCORDING TO THE BS/INSULIN PROTOCOL THAT IS PRESCRIBED TO THE PT.
--- NOTE | 2019-04-11 00:40 | NUR ---
ELEVATED TEMP PT HAS A SLIGHT ELEVATED TEMP, WILL PUT COOLING MEASURES IN PLACE.
[2019-04-11] MEDS: PROPOFOL 100 ML IV SCH (02:04)
--- NOTE | 2019-04-11 02:15 | NUR ---
ELEVATED TEMP PT HAS ELEVATED TEMP, COOLING MEASURES ARE IN PLACE
--- NOTE | 2019-04-11 03:14 | NUR ---
SUCTION CANISTERS AND TUBING CHANGED
[2019-04-11 04:35] LABS: Hemoglobin 11.8 g/dL (12.2-16.2); Mean Corpuscular Hemoglobin 26.8 pg (28.0-32.0)
[2019-04-11 04:38] LABS: Hematocrit 38.8 % (36.0-46.0); Mean Corpuscular Hgb Conc. 30.3 g/dL (32.0-36.0); Mean Corpuscular Volume 88.3 fL (80.0-100.0); Platelet Count (auto) 315 10^3/uL (140-450); Red Cell Distribution Width 15.7 % (11.8-14.3); White Blood Cell 28.2 10^3/uL (4.4-10.8)
[2019-04-11] MEDS: SODIUM CHLORIDE 0.9% 1,000 ML IV SCH (04:40)
--- NOTE | 2019-04-11 04:40 | NUR ---
vs stable pt remains intubated and sedated, vs stable at this time. no ss of distress noted
[2019-04-11 04:44] LABS: Basophils % (manual) 0 (0.0-2.0); Blast Cells 0; Eosinophils % (manual) 0 (0-7); Metamyelocytes % 0; Myelocytes % 0; Promyelocytes % 0; Reactive Lymphocytes 0
[2019-04-11 04:53] LABS: Calcium 8.5 mg/dL (8.5-10.1); INR 1.14 (0.9-1.15); Magnesium 1.9 mg/dL (1.6-2.6); Partial Thromboplastin Time 37.1 sec (23.64-32.05)
[2019-04-11 04:58] LABS: BUN/Creatinine Ratio 23.3; Bilirubin, Total 0.5 mg/dL (0.2-1.0); Total Protein 6.4 g/dL (6.4-8.2)
[2019-04-11 05:12] LABS: Potassium 5.8 mmol/L (3.5-5.1)
--- NOTE | 2019-04-11 05:13 | NUR ---
LAB CALLED LAB CALLED WITH CRITICAL LAB VALUE, ELEVATED K
--- NOTE | 2019-04-11 05:14 | NUR ---
CRITICAL LAB HOSPITALIST PAGED FOR CRITICAL K LEVEL. AWAITING CALL BACK
[2019-04-11] MEDS: IPRATROPIUM BROM 0.5 MG/2.5ML INH SOL NEB SCH ×3 (05:59→19:00)
[2019-04-11] MEDS: LEVALBUTEROL HCL 1.25 MG/3 ML NEB NEB SCH ×3 (05:59→19:00)
[2019-04-11] MEDS: NOREPINEPHRINE 8 MG/250ML KIT 250 ML IV SCH (06:02)
[2019-04-11] MEDS: ACCU-CHEK COMFORT CURVE STRIP VI SCH ×5 (06:08→23:52)
[2019-04-11] MEDS: InsuLIN REG 1unit/0.01ml Soln (100units/ml) SC SCH ×5 (06:10→23:52)
--- NOTE | 2019-04-11 06:35 | NUR ---
HOSPITALIST PAGED AGAIN HOSPITALIST PAGED AGAIN FOR CRITICAL LABS STILL AWAITING CALL BACK
[2019-04-11 06:37] LABS: Band Neutrophils % (manual) 11; Lymphocytes % (manual) 21 (10.0-50.0); Monocytes % (manual) 8 (0-12)
--- NOTE | 2019-04-11 06:46 | NUR ---
NO SS OF DISTRESS NOTED AT THIS TIME PT REMAINS INTUBATED AND SEDATED. IVS ARE INTACT AND ASYMPTOMATIC AT THIS TIME. VS ARE STABLE
--- NOTE | 2019-04-11 07:00 | NUR ---
HOSPITALIST RETURNED CALL HOSPITALIST NOTIFIED THAT PTS K IS 5.8, HOSPITALIST SAID THANK YOU.
--- NOTE | 2019-04-11 07:03 | NUR ---
VOICE MESSAGE LEFT FOR VOICE MESSAGE LEFT FOR REGARDING CRITICAL K, AWAITING CALL BACK
--- NOTE | 2019-04-11 07:20 | NUR ---
REPORT GIVEN AND CARE ENDORSED TO ISAAC BARTON
--- NOTE | 2019-04-11 07:30 | NUR ---
Respiratory note: VENT CHANGER PER DR. JACK, RR 20, VT 500, FOLLOW UP ABG IN 1HR TO BE DONE.
[2019-04-11] MEDS ORDERED: SODIUM BICARBONATE 8.4 % INJ 50ML VIAL IV ONE ×2 (07:39→07:45)
[2019-04-11 07:51] LABS: Albumin 1.7 g/dL (3.4-5.0)
[2019-04-11] MEDS ORDERED: SODIUM BICARBONATE 8.4% INJ 50ML SYRINGE IV ONE (07:53)
--- NOTE | 2019-04-11 08:20 | NUR ---
ANOTHER CALL PLACED TO DR CARD RE: POTASSIUM 5.8
[2019-04-11] MEDS: cefTRIAXone 1GM/50ML D5W 50 ML IV SCH (08:51)
--- NOTE | 2019-04-11 08:55 | NUR ---
Respiratory note: VENT CHANGE PER , VT TO 550, ABG TO FOLLOW IN 3 HOURS. RN MICK MACHUCA.
--- NOTE | 2019-04-11 09:14 | NUR ---
DR CARD RETURNS CALL INFORMED OF POTASSIUM LEVEL -NO ORDERS RECEIVED.
[2019-04-11] MEDS ORDERED: FLUCONAZOLE 200MG/100ML 100 ML IV SCH (10:00)
[2019-04-11] MEDS: FAMOTIDINE (10MG/ML) 2ML VL IV SCH (10:28)
[2019-04-11] MEDS: LINEZOLID 600MG/300ML 300 ML IV SCH ×2 (10:29→22:11)
[2019-04-11] MEDS: ENOXAPARIN SOD 30 MG/0.3 ML SYRINGE SC SCH (10:29)
--- NOTE | 2019-04-11 10:40 | NUR ---
DR DRAKE VISITS AND EXAMINES PATIENT - ORDERS RECEIVED.
--- NOTE | 2019-04-11 11:31 | NUR ---
NUTRITION ASSESSMENT NOTES Please refer to link notes of nutrition screen form filed under the intervention section of the plan of care for further details. Est. Needs: 1650 kcal to 2050 kcal (20-25 kcal/kgBW), 66 gms to 83 gms pro (0.8-1.0 gms/kgBW). Will continue to monitor pertinent labs and reassess nutrient need prn Thank you. Addendum: 04/11/19 at [address] Amended: Links added.
[2019-04-11] MEDS: MIDAZOLAM DRIP 50 mg/50mL 50 ML IV SCH (11:39)
[2019-04-11] MEDS: fentaNYL Drip 2500mCg/250mlNS 250 ML IV SCH (11:45)
[2019-04-11] MEDS: NOREPINEPHRINE BITARTRATE 32 MG in D5W 5% 218 ML IV SCH (12:45)
[2019-04-11] MEDS: SODIUM BICARBONATE 50ML VIAL 150 ML in D5W 5% 1,000 ML IV SCH (12:45)
--- NOTE | 2019-04-11 13:00 | NUR ---
SEDATION VACATION STARTED -BP 65/25, LEVOPHED RE-STARTED AFTER OFF X 10 MIN DUE TO HIGH SBP 160-170'S.
[2019-04-11] MEDS: AZITHROMYCIN 500MG/ 250ML 250 ML IV SCH (13:32)
--- NOTE | 2019-04-11 14:00 | NUR ---
Respiratory note: TITRATED FIO2 TO 70%
--- NOTE | 2019-04-11 14:14 | NUR ---
PULMONOLOGY AT BEDSIDE ORDERS TO INCREASE PEEP TO 8 AND CONNECT END TIDAL CO2 TO MONITOR RECEIVED. SPOKE WITH Sunil MCKEON VERBALIZED UNDERSTANDING.
--- NOTE | 2019-04-11 14:59 | NUR ---
DR CARD VISITS AND EXAMINES PATIENT - ORDERS RECEIVED.
[2019-04-11] MEDS: BUMETANIDE INJECTION 12.5 MG in GIVE UN-DILUTED 0 ML IV SCH (15:13)
[2019-04-11] MEDS: DOPamine 1600MCG/ML D5W 250 ML IV SCH (15:22)
[2019-04-11] MEDS: FLUCONAZOLE 200MG/100ML 100 ML IV SCH (15:23)
--- NOTE | 2019-04-11 19:10 | NUR ---
OPENING SHIFT RECEIVED REPORT FROM DAY SHIFT RN. ASSUMED CARE OF PATIENT. PATIENT IN BED INTUBATED AND SEDATED WITH NO SIGNS OR SYMPTOMS OF SOB, PAIN OR DISTRESS. CURRENTLY INTUBATED SIZE 8, 21 AT THE LIP - AC20/TV550/PEEP 8/ FI02 60%. RIGHT INTRAJUGULAR TLC, LEFT AND RIGHT FOREARM IV - CLEAN/DRY/INTACT. CURRENTLY ON PROPOFOL - 20MCG/KG/MIN, DOPAMINE - 2.5MCG/KG/MIN, BUMEX - 0.5MG/HR, QUAD LEVO - 9MCG/MIN. SEBASTIAN HUNG TO GRAVITY. REPOSITIONED FOR COMFORT. BED IN LOWEST POSITION, SIDE RAILS UP X2. WILL CONTINUE TO MONITOR.
--- NOTE | 2019-04-11 22:20 | NUR ---
ELEVATED TEMP 100.2 NOTED TEMPERATURE OF 100.2. COOLING MEASURES INITIATED AND TYLENOL GIVEN. WILL CONTINUE TO MONITOR.
[2019-04-12] VITALS (105 sets, daily range): BP systolic 92–175; BP diastolic 34–75
[2019-04-12] MEDS: LEVALBUTEROL HCL 1.25 MG/3 ML NEB NEB SCH ×4 (00:22→18:00)
[2019-04-12] MEDS: SODIUM BICARBONATE 50ML VIAL 150 ML in D5W 5% 1,000 ML IV SCH ×2 (01:08→09:50)
--- NOTE | 2019-04-12 01:37 | NUR ---
MORNING CARE PERFORMED MORNING CARE WITH CHG WIPES AND WASH CLOTHS TO THE FACE. PARTIAL LINEN CHANGE AND GOWN CHANGED. ORAL AND SEBASTIAN CARE PERFORMED. REPOSITIONED FOR COMFORT. SKIN REASSESSED AT THIS TIME. BED IN LOWEST POSITION, SIDE RAILS UP X2. WILL CONTINUE TO MONITOR.
[2019-04-12] MEDS: PROPOFOL 100 ML IV SCH (04:01)
[2019-04-12 04:56] LABS: Basophils # (auto) 0 uL; Basophils % (auto) 0.1 % (0.0-2.0); Eosinophils # (auto) 0.3 uL; Eosinophils % (auto) 1.2 % (0.0-7.0); Hematocrit 35.2 % (36.0-46.0); Hemoglobin 11.3 g/dL (12.2-16.2); Lymphocytes # (auto) 1.7 uL; Mean Corpuscular Hemoglobin 26.5 pg (28.0-32.0); Mean Corpuscular Hgb Conc. 32.2 g/dL (32.0-36.0); Mean Corpuscular Volume 82.4 fL (80.0-100.0); Monocytes # (auto) 1.4 uL; Monocytes % (auto) 5.5 % (0.0-12.0); Neutrophils # (auto) 21.3 uL; Neutrophils % (auto) 86.2 % (37.0-80.0); Nucleated Red Blood Cells % 0.1 %; Platelet Count (auto) 306 10^3/uL (140-450); Red Blood Cells 4.28 10^6/uL (4.0-5.20); Red Cell Distribution Width 15.2 % (11.8-14.3); White Blood Cell 24.7 10^3/uL (4.4-10.8)
[2019-04-12 05:17] LABS: Potassium 3.9 mmol/L (3.5-5.1)
[2019-04-12 05:25] LABS: Albumin 1.6 g/dL (3.4-5.0); BUN/Creatinine Ratio 25.3; Bilirubin, Total 0.6 mg/dL (0.2-1.0); Calcium 8.1 mg/dL (8.5-10.1); Magnesium 1.4 mg/dL (1.6-2.6); Total Protein 6.4 g/dL (6.4-8.2)
[2019-04-12] MEDS: ACCU-CHEK COMFORT CURVE STRIP VI SCH ×4 (05:57→23:42)
[2019-04-12] MEDS: InsuLIN REG 1unit/0.01ml Soln (100units/ml) SC SCH ×4 (05:57→23:42)
[2019-04-12] MEDS: IPRATROPIUM BROM 0.5 MG/2.5ML INH SOL NEB SCH ×3 (06:24→18:00)
--- NOTE | 2019-04-12 07:26 | NUR ---
END OF SHIFT REPORT GIVEN TO DAY SHIFT RN. CARE ENDORSED.
[2019-04-12] MEDS: NOREPINEPHRINE BITARTRATE 32 MG in D5W 5% 218 ML IV SCH (07:55)
[2019-04-12] MEDS: cefTRIAXone 1GM/50ML D5W 50 ML IV SCH (08:46)
[2019-04-12] MEDS: fentaNYL Drip 2500mCg/250mlNS 250 ML IV SCH (08:49)
[2019-04-12] MEDS: ENOXAPARIN SOD 30 MG/0.3 ML SYRINGE SC SCH (09:48)
[2019-04-12] MEDS: FAMOTIDINE (10MG/ML) 2ML VL IV SCH (09:49)
[2019-04-12] MEDS: LINEZOLID 600MG/300ML 300 ML IV SCH ×2 (09:49→22:01)
[2019-04-12] MEDS: MIDAZOLAM DRIP 50 mg/50mL 50 ML IV SCH ×2 (09:50→13:17)
[2019-04-12] MEDS: BUMETANIDE INJECTION 12.5 MG in GIVE UN-DILUTED 0 ML IV SCH (13:00)
--- NOTE | 2019-04-12 13:11 | NUR ---
DR. CARD HERE TO SEE PATIENT. SEE MS NOTES AND EMR FOR ANY NEW ORDERS.
--- NOTE | 2019-04-12 13:30 | NUR ---
DR. DRAKE HERE TO SEE PATIENT. SEE MS NOTES AND EMR FOR ANY NEW ORDERS.
[2019-04-12] MEDS: AZITHROMYCIN 500MG/ 250ML 250 ML IV SCH (14:01)
[2019-04-12] MEDS: MAGNESIUM SULFATE 1GM/100ML 100 ML IV SCH ×2 (14:50→15:00)
[2019-04-12] MEDS: FLUCONAZOLE 200MG/100ML 100 ML IV SCH (15:57)
--- NOTE | 2019-04-12 16:10 | NUR ---
DR. JACK HERE TO SEE PATIENT. SEE MS NOTES AND EMR FOR ANY NEW ORDERS.
--- NOTE | 2019-04-12 18:02 | NUR ---
RT NOTE RECEIVED PT INTUBATED AND ON VENT V9 ON STATED SETTINGS IN THE ICU. VENT IS PLUGGED TO RED OUTLET. ALARMS ARE ON AND AUDIBLE TO NURSING. AMBU BAG AT BEDSIDE AND CONNECTED TO O2 SOURCE. 8.0 ETT IS SECURED WITH ANCHORFAST AT 21 CM TO THE ORAL CENTER. BILATERAL BS ARE CTA. PT WAS SUCTIONED FOR SCANT RETURN FROM ETT AND ORALLY. HHN GIVEN INLINE WITH 0.63 MG XOPENEX AND 0.5 MG ATROVENT WITHOUT ADVERSE REACTION NOTED. CONT ORDERED. etCO2 39,PT TEMP 100.6 ON COOLING MEASURES, POX 97% Addendum: 04/12/19 at 1841 by Reyna Rand RT Amended: Links added.
--- NOTE | 2019-04-12 18:10 | NUR ---
PATIENTS BLOOD SUGAR 424. CALL TO DR. CARD TO INFORM OF INCREASED BLOOD SUGAR. 15 UNITS OF REGULAR INSULIN GIVEN PER PROTOCOL AND ORDER. AWAITING CALL BACK.
--- NOTE | 2019-04-12 20:00 | NUR ---
OPEN ASSUMED CARE OF FEMALE PT ORALLY INTUBATED. PT SEDATED ON DIPRIVAN GTT 12 MCG/KG/MIN. PT GRIMACE TO TACTILE STIMULATION OTHERWISE NON RESPONSIVE. PT SINUS TACH ON MFT WITH DOPAMINE GTT INFUSING AT 2.5 MCG/KG/MIN, AND QUAD STRENGTH LEVOPHED GTT INFUSING AT 2.5 MCG/MIN. BUMEX GTT INFUSING AT 0.5 MG/HR. HCO3- GTT INFUSING AT 80 ML/HR. GTT'S INFUSING INTO R. IJ TLC WITH CDI DRESSING. NGT TO R. NARE CLAMPED PLACEMENT VERIFIED. SEBASTIAN TO GRAVITY DRAINING CLEAR YELLOW URINE. PT HAS BEEN HAVING TEMPS TODAY CURRENTLY ON COOLING MEASURES. NO INDICATION OF PAIN OBSERVED. SCABS TO RADHA LOWER EXT'S. NO OTHER SKIN BREAKDOWN OBSERVED. ORAL CARE PROVIDED. PT REPOSITIONED WITH PILLOWS USED TO OFFLOAD BONY PROMINENCES AND RADHA HEELS OFFLOADED. BED IN LOWEST LOCKED POSITION. HOB ELEVATED 30 DEGREES. PT IN FULL VIEW OF RN STATION. WILL CONTINUE TO MONITOR.
--- NOTE | 2019-04-12 20:06 | NUR ---
RT NOTE ROUTINE VENT CHECK DONE. PT INTUBATED AND ON VENT V9 ON STATED SETTINGS IN THE ICU. VENT IS PLUGGED TO RED OUTLET. ALARMS ARE ON AND AUDIBLE TO NURSING. AMBU BAG AT BEDSIDE AND CONNECTED TO O2 SOURCE. 8.0 ETT IS SECURED WITH ANCHORFAST AT 21 CM TO THE ORAL CENTER. CONT ORDERED. etCO2 38, PT TEMP 99.5 ON COOLING MEASURES, POX 97% Addendum: 04/12/19 at 2145 by Reyna Rand RT Amended: Links added.
--- NOTE | 2019-04-12 22:00 | NUR ---
RT NOTE ROUTINE VENT CHECK DONE. PT INTUBATED AND ON VENT V9 ON STATED SETTINGS IN THE ICU. VENT IS PLUGGED TO RED OUTLET. ALARMS ARE ON AND AUDIBLE TO NURSING. AMBU BAG AT BEDSIDE AND CONNECTED TO O2 SOURCE. 8.0 ETT IS SECURED WITH ANCHORFAST AT 21 CM TO THE ORAL CENTER. ISAAC ALLRED AT BEDSIDE. CONT ORDERED. etCO2 35,PT TEMP 98.2, POX 98% Addendum: 04/12/19 at 2222 by Reyna Rand RT Amended: Links added.
--- NOTE | 2019-04-12 23:54 | NUR ---
ELEVATED BLOOD SUGAR PT ACCU CHECK READING 504. CURRENTLY ON MOD S/S. INSULIN GIVEN PER SCALE AND MD PAGED PER PROTOCOL. MESSAGE LEFT ON DR CARD'S EXCHANGE. AWAIT CALL BACK.
[2019-04-13] VITALS (103 sets, daily range): BP systolic 61–173; BP diastolic 34–80
--- NOTE | 2019-04-13 | NUR ---
RT NOTE ROUTINE VENT CHECK DONE. PT INTUBATED AND ON VENT V9 ON STATED SETTINGS IN THE ICU. VENT IS PLUGGED TO RED OUTLET. ALARMS ARE ON AND AUDIBLE TO NURSING. AMBU BAG AT BEDSIDE AND CONNECTED TO O2 SOURCE. 8.0 ETT IS SECURED WITH ANCHORFAST AT 21 CM TO THE ORAL CENTER.PT WAS SUCTIONED FOR SMALL RETURN. HHN GIVEN INLINE WITH 0.63 MG XOPENEX AND 0.5 MG ATROVENT WITHOUT ADVERSE REACTION NOTED. CONT ORDERED. etCO2 36,PT TEMP 98.1, POX 98% Addendum: 04/13/19 at 0034 by Reyna Rand RT Amended: Links added.
[2019-04-13] MEDS: LEVALBUTEROL HCL 1.25 MG/3 ML NEB NEB SCH ×4 (00:04→18:19)
[2019-04-13] MEDS: IPRATROPIUM BROM 0.5 MG/2.5ML INH SOL NEB SCH ×4 (00:04→18:19)
--- NOTE | 2019-04-13 02:10 | NUR ---
RT NOTE ROUTINE VENT CHECK DONE. PT INTUBATED AND ON VENT V9 ON STATED SETTINGS IN THE ICU. VENT IS PLUGGED TO RED OUTLET. ALARMS ARE ON AND AUDIBLE TO NURSING. AMBU BAG AT BEDSIDE AND CONNECTED TO O2 SOURCE. 8.0 ETT IS SECURED WITH ANCHORFAST AT 21 CM TO THE ORAL CENTER. PT IS BEING ATTENDED BY ISAAC ALLRED AT BEDSIDE. HME, T-PIECE AND INLINE SUCTION CHANGED WITHOUT INCIDENT . CONT ORDERED. etCO2 38,PT TEMP 98.8,POX 96% Addendum: 04/13/19 at 0229 by Reyna Rand RT Amended: Links added.
[2019-04-13] MEDS: DOPamine 1600MCG/ML D5W 250 ML IV SCH ×2 (02:30→12:45)
--- NOTE | 2019-04-13 02:36 | NUR ---
Patient bathe/linen change Patient given complete bath. Skin integrity assessed for any changes. Linens changed. Patient repositioned for comfort. ORAL CARE PROVIDED Q 4HR DURING SHIFT.
--- NOTE | 2019-04-13 04:14 | NUR ---
RT NOTE ROUTINE VENT CHECK DONE. PT INTUBATED AND ON VENT V9 ON STATED SETTINGS IN THE ICU. VENT IS PLUGGED TO RED OUTLET. ALARMS ARE ON AND AUDIBLE TO NURSING. AMBU BAG AT BEDSIDE AND CONNECTED TO O2 SOURCE. 8.0 ETT IS SECURED WITH ANCHORFAST AT 21 CM TO THE ORAL CENTER. CONT ORDERED. etCO2 38,PT TEMP 98.4,POX 99% Addendum: 04/13/19 at 0450 by Reyna Rand RT Amended: Links added.
[2019-04-13 04:36] LABS: Basophils # (auto) 0 uL; Basophils % (auto) 0.1 % (0.0-2.0); Eosinophils # (auto) 0 uL; Hematocrit 34.1 % (36.0-46.0); Hemoglobin 11.1 g/dL (12.2-16.2); Lymphocytes # (auto) 1.3 uL; Mean Corpuscular Hemoglobin 26.7 pg (28.0-32.0); Mean Corpuscular Hgb Conc. 32.5 g/dL (32.0-36.0); Mean Corpuscular Volume 82.1 fL (80.0-100.0); Monocytes % (auto) 7.1 % (0.0-12.0); Neutrophils # (auto) 12.1 uL; Neutrophils % (auto) 83.8 % (37.0-80.0); Nucleated Red Blood Cells % 0.1 %; Platelet Count (auto) 232 10^3/uL (140-450); Red Blood Cells 4.15 10^6/uL (4.0-5.20); Red Cell Distribution Width 14.9 % (11.8-14.3); White Blood Cell 14.4 10^3/uL (4.4-10.8)
[2019-04-13 04:56] LABS: BUN/Creatinine Ratio 33.8; Calcium 8.1 mg/dL (8.5-10.1)
[2019-04-13 05:12] LABS: Potassium 2.8 mmol/L (3.5-5.1)
--- NOTE | 2019-04-13 05:16 | NUR ---
PAGE RE: K+ 2.[address] BARRERA REGARDING AM K+ 2.8. AWAIT C/B
[2019-04-13] MEDS: SODIUM BICARBONATE 50ML VIAL 150 ML in D5W 5% 1,000 ML IV SCH (05:24)
[2019-04-13] MEDS: ACCU-CHEK COMFORT CURVE STRIP VI SCH ×6 (05:29→23:05)
[2019-04-13] MEDS: InsuLIN REG 1unit/0.01ml Soln (100units/ml) SC SCH ×6 (05:30→23:06)
--- NOTE | 2019-04-13 05:34 | NUR ---
BLOOD GLUCOSE/ MD PAGE DR CARD PAGED REGARDING BLOOD SUGAR 449. MESSAGE LEFT ON MD'S EXCHANGE. AWAIT CALL BACK.
--- NOTE | 2019-04-13 06:24 | NUR ---
SECOND PAGE FOR NEPHROLOGY PAGED NEPHROLOGY REGARDING AM K+ LEVEL 2.8. AWAIT CALL BACK.
[2019-04-13] MEDS ORDERED: DEXTROSE (50%) 50ML SYRG IV PRN (06:30)
--- NOTE | 2019-04-13 06:34 | NUR ---
DR CARD CALLED UNIT UPDATED DR CARD REGARDING AM K+ LEVEL 2.8 AND BLOOD GLUCOSE LEVELS 400'S TO 500'S. ORDERS RECEIVED.
[2019-04-13] MEDS ORDERED: POTASSIUM CHL 20MEQ/100ML 100 ML IV ONE (06:37)
[2019-04-13] MEDS: POTASSIUM CHL 20MEQ/100ML 100 ML IV SCH ×4 (06:46→16:39)
--- NOTE | 2019-04-13 06:48 | NUR ---
GRAINING PRESS OPERATOR TO UNIT Addendum: 04/13/19 at 0649 by Althea Aponte RN DISREGARD NOTE. WRONG PT.
--- NOTE | 2019-04-13 06:49 | NUR ---
DISREGARD PREVIOUS NOTE SEE AMENDMENT.
[2019-04-13] MEDS: NOREPINEPHRINE BITARTRATE 32 MG in D5W 5% 218 ML IV SCH (07:49)
--- NOTE | 2019-04-13 08:26 | NUR ---
Respiratory note: CALLED DR JACK TO READ BACK ABG RESULTS. DR JACK GAVE ORDERS TO DECREASE RR FROM 20 TO 14, WELL VT FROM 550 TO 500. ABG IN 1 HOUR POST VENT CHANGES. PT TOLERATING VENT CHANGES WELL. RN MADE AWARE.
[2019-04-13] MEDS: fentaNYL Drip 2500mCg/250mlNS 250 ML IV SCH (08:49)
[2019-04-13] MEDS: PROPOFOL 100 ML IV SCH ×3 (10:10→20:20)
[2019-04-13] MEDS: FAMOTIDINE (10MG/ML) 2ML VL IV SCH (10:10)
[2019-04-13] MEDS: LINEZOLID 600MG/300ML 300 ML IV SCH ×2 (10:11→23:00)
[2019-04-13] MEDS: ENOXAPARIN SOD 30 MG/0.3 ML SYRINGE SC SCH (10:12)
[2019-04-13] MEDS: cefTRIAXone 1GM/50ML D5W 50 ML IV SCH (12:04)
[2019-04-13] MEDS: AZITHROMYCIN 500MG/ 250ML 250 ML IV SCH (13:00)
[2019-04-13] MEDS: MIDAZOLAM DRIP 50 mg/50mL 50 ML IV SCH (13:17)
[2019-04-13] MEDS: BUMETANIDE INJECTION 12.5 MG in GIVE UN-DILUTED 0 ML IV SCH (13:30)
--- NOTE | 2019-04-13 14:50 | NUR ---
NUTRITION FOLLOWUP NOTES Pt wt is 83.3 kg today Pt currently NPO d/t . Pt's in isolation, with no relatives at bedside when rounded this morning. Pt currently sedated with Propofol @ 7.2 ml/hr providing 190 kcal from Fat. Pt's NPO, no order for alternate nutrition support yet at this time. Pt with possible CPAP trial today per RN. Please refer to EN support recommendation below. Est. Needs: 1650 kcal to 2050 kcal (20-25 kcal/kgBW), 66 gms to 83 gms pro (0.8-1.0 gms/kgBW). Will continue to monitor pertinent labs and reassess nutrient need prn LABS: Gluc 388 H, A1c 10.8 H, Alb 1.6 L GI: Last BM unknown, diarrhea per RN doc BS: 12 high risk, pt's left right lower abdominal fold intritigo per RN doc PES: 1.) Altered nutrition related lab values RT acute/chronic medical condition AEB hyperglycemia, hyponatremia, hyperkalemia, elev. renal labs, LFTs, HbA1c and severe hypoalbuminemia 2.) Increased nutrient needs RT current/chronic medical status AEB intubated, sedated,severe hypoalbuminemia, NPO. Comments Will continue to monitor NPO status, pertinent labs, skin status and weight trends. F/u in 2 to 3 days. Additional Recommendation: 1.) If still NPO with EN support, consider preferred EN formula of Glucerna 1.2 Bret @ 60 ml/hr goal rate as tolerated while on current of Propofol . 2.) If Albumin continues trending down with improved renal labs, consider Prostat 1 pkt BID. 3.) Advance gradually to oral diet when medically appropriate. 4.) Refer to CDE/RD for further nutrition educ. and weight monitoring upon discharge. 6.) Continue current plan of care.
[2019-04-13] MEDS: DexMEDEtomidine 400 MCG in D5W 5% 96 ML IV SCH (15:01)
--- NOTE | 2019-04-13 15:09 | NUR ---
CALL OUT TO DR. CARD TO REPORT POTASSIUM OF 3.0.
--- NOTE | 2019-04-13 15:12 | NUR ---
DR. CARD CALLED BACK NEW ORDERS FOR POTASSIUM.
[2019-04-13] MEDS: FLUCONAZOLE 200MG/100ML 100 ML IV SCH (15:24)
[2019-04-13] MEDS ORDERED: POTASSIUM CHL 20 Meq TABLET PO PRN (16:45)
[2019-04-13 17:37] LABS: Calcium 8.4 mg/dL (8.5-10.1)
[2019-04-13 17:39] LABS: BUN/Creatinine Ratio 31.8
[2019-04-13] MEDS: INSULIN NPH Isophane (HUMAN) 1unit/0.01ml Susp(100units/ml) SC SCH (18:07)
--- NOTE | 2019-04-13 20:00 | NUR ---
OPEN ASSUMED CARE OF FEMALE PT ORALLY INTUBATED. PT SEDATED ON DIPRIVAN GTT 20 MCG/KG/MIN, AND PRECEDEX 0.2 MCG/KG/HR. PT GRIMACE TO TACTILE STIMULATION OTHERWISE NON RESPONSIVE. PT SINUS RHYTHM ON VEGETABLE CANNER WITH BBB. DOPAMINE GTT INFUSING AT 2.5 MCG/KG/MIN. BUMEX GTT INFUSING AT 0.5 MG/HR. GTT'S INFUSING INTO R. IJ TLC WITH CDI DRESSING. NGT TO R. NARE CLAMPED PLACEMENT VERIFIED. SEBASTIAN TO GRAVITY DRAINING CLEAR YELLOW URINE. NO INDICATION OF PAIN OBSERVED. SCABS TO RADHA LOWER EXT'S. NO OTHER SKIN BREAKDOWN OBSERVED. ORAL CARE PROVIDED. PT REPOSITIONED WITH PILLOWS USED TO OFFLOAD BONY PROMINENCES AND RADHA HEELS OFFLOADED. BED IN LOWEST LOCKED POSITION. HOB ELEVATED 30 DEGREES. PT IN FULL VIEW OF RN STATION. WILL CONTINUE TO MONITOR.
[2019-04-14] VITALS (100 sets, daily range): BP systolic 95–176; BP diastolic 45–72
[2019-04-14] MEDS: LEVALBUTEROL HCL 1.25 MG/3 ML NEB NEB SCH ×4 (00:01→18:47)
--- NOTE | 2019-04-14 03:30 | NUR ---
Patient bathe/linen change Patient given complete bath. Skin integrity assessed for any changes. Linens changed. Patient repositioned for comfort.
[2019-04-14] MEDS: PROPOFOL 100 ML IV SCH (03:40)
[2019-04-14] MEDS: ACCU-CHEK COMFORT CURVE STRIP VI SCH ×5 (04:10→19:50)
[2019-04-14] MEDS: InsuLIN REG 1unit/0.01ml Soln (100units/ml) SC SCH ×5 (04:11→19:50)
[2019-04-14 04:26] LABS: Basophils # (auto) 0 uL; Eosinophils # (auto) 0 uL; Mean Corpuscular Hemoglobin 26.9 pg (28.0-32.0); Neutrophils % (auto) 71.8 % (37.0-80.0)
[2019-04-14 04:29] LABS: Basophils % (auto) 0.1 % (0.0-2.0); Hematocrit 35.5 % (36.0-46.0); Hemoglobin 11.8 g/dL (12.2-16.2); Lymphocytes # (auto) 1.7 uL; Lymphocytes % (auto) 17.7 % (10.0-50.0); Mean Corpuscular Hgb Conc. 33.2 g/dL (32.0-36.0); Mean Corpuscular Volume 80.8 fL (80.0-100.0); Monocytes % (auto) 10.4 % (0.0-12.0); Neutrophils # (auto) 6.8 uL; Platelet Count (auto) 236 10^3/uL (140-450); Red Blood Cells 4.39 10^6/uL (4.0-5.20); Red Cell Distribution Width 14.5 % (11.8-14.3); White Blood Cell 9.5 10^3/uL (4.4-10.8)
[2019-04-14 04:38] LABS: INR 1.08 (0.9-1.15); Partial Thromboplastin Time 25.5 sec (23.64-32.05)
[2019-04-14 04:43] LABS: BUN/Creatinine Ratio 34.1; Calcium 8.6 mg/dL (8.5-10.1); Magnesium 1.4 mg/dL (1.6-2.6)
[2019-04-14 04:47] LABS: Potassium 2.9 mmol/L (3.5-5.1)
[2019-04-14] MEDS: POTASSIUM CHL 20MEQ/100ML 100 ML IV PRN ×3 (04:57→07:36)
[2019-04-14] MEDS: INSULIN NPH Isophane (HUMAN) 1unit/0.01ml Susp(100units/ml) SC SCH ×2 (06:20→18:00)
[2019-04-14] MEDS: IPRATROPIUM BROM 0.5 MG/2.5ML INH SOL NEB SCH ×3 (06:41→18:47)
--- NOTE | 2019-04-14 07:09 | NUR ---
DR. CASTRO CALLED BACK WITH NEW ORDERS FOR MAGNESIUM OF 1.4. SEE NEW ORDERS.
[2019-04-14] MEDS: NOREPINEPHRINE BITARTRATE 32 MG in D5W 5% 218 ML IV SCH (07:35)
[2019-04-14] MEDS: fentaNYL Drip 2500mCg/250mlNS 250 ML IV SCH (07:56)
[2019-04-14] MEDS: MAGNESIUM SULFATE 1GM/100ML 100 ML IV SCH ×2 (08:00→09:00)
[2019-04-14] MEDS: cefTRIAXone 1GM/50ML D5W 50 ML IV SCH (09:00)
[2019-04-14] MEDS ORDERED: POTASSIUM CHL 20MEQ/100ML 100 ML IV SCH (10:30)
[2019-04-14] MEDS ORDERED: acetaZOLAMIDE SODIUM 500 MG VL IV ONE (10:30)
--- NOTE | 2019-04-14 10:30 | NUR ---
DR. DRAKE HERE TO SEE PATIENT. SEE MS NOTES AND EMR FOR ANY NEW ORDERS.
[2019-04-14] MEDS: LINEZOLID 600MG/300ML 300 ML IV SCH ×2 (10:36→21:49)
[2019-04-14] MEDS: ENOXAPARIN SOD 30 MG/0.3 ML SYRINGE SC SCH (10:36)
[2019-04-14] MEDS: FAMOTIDINE (10MG/ML) 2ML VL IV SCH (10:36)
[2019-04-14] MEDS: POTASSIUM EFFERVESENT TAB 25 MEQ GT SCH ×2 (10:37→14:00)
[2019-04-14] MEDS: DOPamine 1600MCG/ML D5W 250 ML IV SCH (10:39)
--- NOTE | 2019-04-14 10:50 | NUR ---
DR. CARD HERE TO SEE PATIENT. SEE MS NOTES AND EMR FOR ANY NEW ORDERS.
[2019-04-14] MEDS: BUMETANIDE INJECTION 12.5 MG in GIVE UN-DILUTED 0 ML IV SCH (12:08)
[2019-04-14] MEDS: AZITHROMYCIN 500MG/ 250ML 250 ML IV SCH (13:16)
[2019-04-14] MEDS: MIDAZOLAM DRIP 50 mg/50mL 50 ML IV SCH (13:17)
[2019-04-14] MEDS ORDERED: POTASSIUM EFFERVESENT TAB 25 MEQ GT SCH (14:00)
[2019-04-14] MEDS: DexMEDEtomidine 400 MCG in D5W 5% 96 ML IV SCH (15:01)
[2019-04-14] MEDS: FLUCONAZOLE 200MG/100ML 100 ML IV SCH (15:08)
--- NOTE | 2019-04-14 15:10 | NUR ---
DR. JACK HERE TO SEE PATIENT. SEE MS NOTES AND EMR FOR ANY NEW ORDERS.
--- NOTE | 2019-04-14 19:00 | NUR ---
OPENING NOTE ASSUMED CARE OF PATIENT AT THIS TIME. REPORT RECEIVED FROM DAY SHIFT RN. POC REVIEWED. HEAD TO TOE ASSESSMENT COMPLETE, SEE INTERVENTION SPREADSHEET FOR COMPLETE PHYSICAL ASSESSMENT DETAILS. RECEIVED PT INTUBATED, NON-RESPONSIVE. NO SEDATION AT THIS TIME. RECEIVED PT WITH NGT CLAMPED. IV SITE BENIGN. SEBASTIAN CATHETER DRAINING TO GRAVITY. RECEIVED PT ON ISO FOR MRSA SPUTUM, NARES AND BLOOD. SLIGHT HEMATURIA NOTED IN SEBASTIAN DRAINAGE. BED LOCKED AND IN LOWEST POSITION, SAFETY PRECAUTIONS IN PLACE. WILL MONITOR PT CAREFULLY.
[2019-04-15] VITALS (103 sets, daily range): BP systolic 79–166; BP diastolic 38–71
[2019-04-15] MEDS: ACCU-CHEK COMFORT CURVE STRIP VI SCH ×6 (00:06→20:00)
[2019-04-15] MEDS: LEVALBUTEROL HCL 1.25 MG/3 ML NEB NEB SCH ×4 (00:16→18:50)
--- NOTE | 2019-04-15 03:11 | NUR ---
BED BATH PT GIVEN CHG BED BATH WITH LINEN CHANGE. NO SKIN INTEGRITY CHANGES NOTED. SUCTION TUBING AND CANISTER CHANGED A THIS TIME. PERIPHERAL 22 GAUGE IV REMOVED, PRESSURE DRESSING APPLIED. PT TOLERATED WELL. PT REPOSITIONED FOR SAFETY AND COMFORT. WILL CONTINUE WITH CARE.
[2019-04-15] MEDS: InsuLIN REG 1unit/0.01ml Soln (100units/ml) SC SCH ×6 (04:00→20:00)
[2019-04-15 04:33] LABS: Basophils # (auto) 0 uL; Eosinophils # (auto) 0 uL; Eosinophils % (auto) 0.1 % (0.0-7.0); Lymphocytes # (auto) 3.2 uL; Red Blood Cells 4.48 10^6/uL (4.0-5.20); Red Cell Distribution Width 14.5 % (11.8-14.3)
[2019-04-15 04:37] LABS: Basophils % (auto) 0.2 % (0.0-2.0); Lymphocytes % (auto) 23.1 % (10.0-50.0); Mean Corpuscular Hemoglobin 26.9 pg (28.0-32.0); Mean Corpuscular Hgb Conc. 32.6 g/dL (32.0-36.0); Mean Corpuscular Volume 82.5 fL (80.0-100.0); Monocytes # (auto) 1.1 uL; Monocytes % (auto) 8.2 % (0.0-12.0); Neutrophils # (auto) 9.6 uL; Neutrophils % (auto) 68.4 % (37.0-80.0); Platelet Count (auto) 223 10^3/uL (140-450)
[2019-04-15 04:47] LABS: Potassium 3.2 mmol/L (3.5-5.1)
[2019-04-15 04:55] LABS: BUN/Creatinine Ratio 36.5; Calcium 8.5 mg/dL (8.5-10.1); Magnesium 1.8 mg/dL (1.6-2.6)
[2019-04-15] MEDS: POTASSIUM CHL 20MEQ/100ML 100 ML IV PRN ×3 (05:08→07:27)
--- NOTE | 2019-04-15 05:10 | NUR ---
DAVIAN HAY K 3.2, K PROTOCOL INITIATED PER MD ORDERS.
--- NOTE | 2019-04-15 06:18 | NUR ---
SHIFT SUMMARY PT REMAINS UNRESPONSIVE WITHOUT SEDATION THROUGH OUT SHIFTS. ELECTROLYTES REPLACED PER MD ORDER. LEFT HAND NOTED TO MOVE SLIGHTLY WITHOUT STIMULATION ON LAST ASSESSMENT. HR SLIGHTLY INCREASED IN LOW 100'S. OTHER VSS. Addendum: 04/15/19 at 0648 by IZABLE PAYNE RN MOVEMENT NOTED ON RIGHT HAND NOT LEFT
[2019-04-15] MEDS: INSULIN NPH Isophane (HUMAN) 1unit/0.01ml Susp(100units/ml) SC SCH ×2 (06:36→18:30)
[2019-04-15] MEDS: IPRATROPIUM BROM 0.5 MG/2.5ML INH SOL NEB SCH ×3 (07:01→18:49)
[2019-04-15] MEDS: NOREPINEPHRINE BITARTRATE 32 MG in D5W 5% 218 ML IV SCH (07:55)
[2019-04-15] MEDS: PROPOFOL 100 ML IV SCH (08:06)
[2019-04-15] MEDS: fentaNYL Drip 2500mCg/250mlNS 250 ML IV SCH (08:49)
[2019-04-15] MEDS: cefTRIAXone 1GM/50ML D5W 50 ML IV SCH (09:05)
[2019-04-15] MEDS ORDERED: acetaZOLAMIDE SODIUM 500 MG VL IV ONE (10:15)
[2019-04-15] MEDS: ENOXAPARIN SOD 30 MG/0.3 ML SYRINGE SC SCH (10:34)
[2019-04-15] MEDS: LINEZOLID 600MG/300ML 300 ML IV SCH ×2 (10:34→22:28)
[2019-04-15] MEDS: FAMOTIDINE (10MG/ML) 2ML VL IV SCH (10:34)
[2019-04-15] MEDS ORDERED: NOREPINEPHRINE 8 MG/250ML KIT 250 ML IV ONE (10:48)
[2019-04-15] MEDS: NOREPINEPHRINE 8 MG/250ML KIT 250 ML IV SCH (11:01)
--- NOTE | 2019-04-15 11:51 | NUR ---
Resumed care at 0715, orders reviewed and ongoing assessments being done. Being treated for multiple problems and remains intubated. Sedation was weaned off yesterday early am. Has not woken up and does not open eyes or follow any direction. Limbs flaccid but is moving left arm and gag reflex is present but hypoactive. Dr. Rainey rounded at 0844, reviewed data and discussed condition. Made him aware that MAP at times <65, may start Levophed gtt if appropriate. BP dropped 70's/30's last 2 cycles at 1101 restarted Levophed, 5mcg/min. Have titrated as appropriate. Dr. Steve, wedding planner rounded at 1020, reviewed medications and plan of care. Bumex gtt was discontinued. Continue with Dopamine gtt at 2.5mcg/kg/min (renal dose).
[2019-04-15] MEDS: AZITHROMYCIN 500MG/ 250ML 250 ML IV SCH (13:01)
[2019-04-15] MEDS: DOPamine 1600MCG/ML D5W 250 ML IV SCH (13:12)
[2019-04-15] MEDS: MIDAZOLAM DRIP 50 mg/50mL 50 ML IV SCH (13:17)
[2019-04-15] MEDS ORDERED: LORazepam 2MG/ML-1ML VIAL ONE (13:38)
[2019-04-15] MEDS: ACETAMINOPHEN 650 mg PER 20 mL UD PO PRN (14:16)
[2019-04-15] MEDS: POTASSIUM EFFERVESENT TAB 25 MEQ GT SCH ×2 (14:17→18:09)
[2019-04-15] MEDS: FLUCONAZOLE 200MG/100ML 100 ML IV SCH (15:24)
--- NOTE | 2019-04-15 15:46 | NUR ---
No neurological changes. Rectal temperature up to 101.5 at 1417, initiated cooling measures; Tylenol given, ice packs applied, and cool compress to forehead. Rectal temperature 100.[address] Sultana, sensitizer was in to round at 1400, continue with current plan of care.
--- NOTE | 2019-04-15 17:48 | NUR ---
Weaned off Levophed gtt at 1700. BP holding 113/52 at this time. Not opening eyes or following any directions when spoken to. Did open eyes a couple of times today during turning, no sustain eye contact. Continue current plan of care.
--- NOTE | 2019-04-15 19:30 | NUR ---
OPEN RECEIVED REPORT AND ASSUMED CARE OF FEMALE PT ORALLY INTUBATED. PT GRIMACE TO TACTILE STIMULI OTHERWISE NON RESPONSIVE. PT IS CONNECTED TO ICU MONITORS AND VS ARE STABLE. DOPAMINE GTT INFUSING AT 2.5 MCG/KG/MIN. PT HAS R. IJ TLC WITH CDI DRESSING. NGT TO R. NARE CLAMPED PLACEMENT VERIFIED. SEBASTIAN TO GRAVITY DRAINING CLEAR YELLOW URINE. NO INDICATION OF PAIN OBSERVED. SCABS TO RADHA LOWER EXT'S. NO OTHER SKIN BREAKDOWN OBSERVED. ORAL CARE PROVIDED. PT REPOSITIONED WITH PILLOWS USED TO OFFLOAD BONY PROMINENCES FOR COMFORT AND SAFETY. BED IN LOWEST LOCKED POSITION. 2 SIDERAILS UP, HOB ELEVATED 45* DEGREES. PT IN FULL VIEW OF RN STATION. WILL CONTINUE TO CARE FOR AND MONITOR.
--- NOTE | 2019-04-15 20:30 | NUR ---
BS/INSULIN PT BS CHECKED AND IT WAS DETERMINED PT NEEDED INSULIN ACCORDING THE PTS PRESCRIBED BS PROTOCOL. PRESCRIBED INSULIN AMOUNT WAS GIVEN.
--- NOTE | 2019-04-15 23:05 | NUR ---
PT REMAINS INTUBATED VS ARE STABLE NO SIGNS OF DISTRESS NOTED AT THIS TIME. PT TOLERATING CARE.
[2019-04-16] VITALS (75 sets, daily range): BP systolic 75–154; BP diastolic 39–69
[2019-04-16] MEDS: LEVALBUTEROL HCL 1.25 MG/3 ML NEB NEB SCH ×4 (00:25→18:52)
[2019-04-16] MEDS: ACCU-CHEK COMFORT CURVE STRIP VI SCH ×6 (00:25→20:00)
[2019-04-16] MEDS: InsuLIN REG 1unit/0.01ml Soln (100units/ml) SC SCH ×6 (00:26→20:00)
--- NOTE | 2019-04-16 00:30 | NUR ---
BS/INSULIN PT BS CHECKED AND IT WAS DETERMINED PT NEEDED INSULIN ACCORDING THE PTS PRESCRIBED BS PROTOCOL. PRESCRIBED INSULIN AMOUNT WAS GIVEN.
--- NOTE | 2019-04-16 01:22 | NUR ---
PT TOLERATES CARE PT TOLERATES TURNS AND ORAL CARE. VS STABLE. WILL CONTINUE TO CARE FOR AND MONITOR.
--- NOTE | 2019-04-16 03:02 | NUR ---
SUCTION CANISTERS AND TUBING CHANGED
[2019-04-16 03:48] LABS: Basophils # (auto) 0 uL; Basophils % (auto) 0.2 % (0.0-2.0); Eosinophils # (auto) 0 uL; Eosinophils % (auto) 0.1 % (0.0-7.0); Hematocrit 39.9 % (36.0-46.0); Hemoglobin 12.3 g/dL (12.2-16.2); Lymphocytes # (auto) 3.7 uL; Lymphocytes % (auto) 20.6 % (10.0-50.0); Mean Corpuscular Hemoglobin 26.5 pg (28.0-32.0); Mean Corpuscular Hgb Conc. 30.8 g/dL (32.0-36.0); Mean Corpuscular Volume 85.9 fL (80.0-100.0); Monocytes # (auto) 1.4 uL; Monocytes % (auto) 7.6 % (0.0-12.0); Neutrophils # (auto) 12.7 uL; Neutrophils % (auto) 71.5 % (37.0-80.0); Platelet Count (auto) 175 10^3/uL (140-450); Red Blood Cells 4.65 10^6/uL (4.0-5.20); Red Cell Distribution Width 15.2 % (11.8-14.3); White Blood Cell 17.8 10^3/uL (4.4-10.8)
[2019-04-16 04:06] LABS: BUN/Creatinine Ratio 32.9; Calcium 8.6 mg/dL (8.5-10.1); Magnesium 1.8 mg/dL (1.6-2.6); Potassium 4.9 mmol/L (3.5-5.1)
[2019-04-16] MEDS: IPRATROPIUM BROM 0.5 MG/2.5ML INH SOL NEB SCH ×3 (06:25→18:52)
[2019-04-16] MEDS: INSULIN NPH Isophane (HUMAN) 1unit/0.01ml Susp(100units/ml) SC SCH ×2 (07:24→18:00)
--- NOTE | 2019-04-16 07:24 | NUR ---
NOVOLIN GIVEN CONSULTED LOAN CONSULTANT PAUL AND ASKED OPINION IF NOVOLIN SHOULD BE GIVEN BS 114, CHARGE EDUCATED TO GO AHEAD AND GIVE ACCORDING TO BS TREND AND BECAUSE IT TAKES A WHILE TO KICK IN
--- NOTE | 2019-04-16 07:25 | NUR ---
REPORT GIVEN AND CARE ENDORSED.
[2019-04-16] MEDS: fentaNYL Drip 2500mCg/250mlNS 250 ML IV SCH (07:50)
[2019-04-16] MEDS: PROPOFOL 100 ML IV SCH (07:50)
--- NOTE | 2019-04-16 08:00 | NUR ---
INITIAL/ONGOING ASSESSMENT: Patient opens eyes spontaneously, does not track, does not follow commands. Patient with slight withdraw to painful stimulus. Plan to continue to leave patient off of sedation and CPAP once patient is able to follow commands.
[2019-04-16] MEDS: ENOXAPARIN SOD 30 MG/0.3 ML SYRINGE SC SCH (10:15)
[2019-04-16] MEDS: FAMOTIDINE (10MG/ML) 2ML VL IV SCH (10:15)
[2019-04-16] MEDS: LINEZOLID 600MG/300ML 300 ML IV SCH ×2 (10:16→23:13)
[2019-04-16] MEDS: NOREPINEPHRINE 8 MG/250ML KIT 250 ML IV SCH (11:15)
--- NOTE | 2019-04-16 11:45 | NUR ---
Nutrition Follow-up Notes Wt.: 78.5 kg today Pt's in isolation room, intubated, no immediate family member at bedside during rounds earlier. Pt's non-sedated, currently NPO, no order for alternate nutrition support yet at this time, noted for possible CPAP trial. Est. Needs: 1650 kcal to 2050 kcal (20-25 kcal/kgBW), 66 gms to 83 gms pro (0.8-1.0 gms/kgBW). Will continue to monitor pertinent labs and reassess nutrient need prn LABS: Gluc 143 H, Na 134 L, Cl 87 L, CO2 36 H, BUN 71 H, Cr 2.16 H; HbA1c 10.8 H, Alb 1.6 L GI: Pt's no bowel activity since 04/09/19 per clinical documentation clerk SKIN: Estuardo Score 12, high risk, pt's left right lower abdominal fold moisture related dermatitis, intertrigo per RN doc. Pls refer to latest beater tender's notes for further details re: tx plans. PES: Altered nutrition related lab values RT acute/chronic medical condition AEB hyperglycemia, hyponatremia, hyperkalemia, elev. renal labs, LFTs, HbA1c and severe hypoalbuminemia Increased nutrient needs RT current/chronic medical status AEB intubated, sedated,severe hypoalbuminemia, NPO. Will continue to monitor NPO status, pertinent labs, skin status and weight trends. F/u in 2 to 3 days. Additional Rec.: 1.) If still NPO with EN support, consider preferred EN formula of Glucerna 1.2 Bret @ 70 ml/hr goal rate as tolerated. 2.) If Albumin continues trending down with improved renal labs, consider Prostat 1 pkt BID. 3.) Consider daily MVI with minerals and Asc acid 500 mgs BID. 4.) Advance gradually to oral diet when medically appropriate. 5.) Refer to CDE/RD for further nutrition educ. and weight monitoring upon discharge. 6.) Continue current plan of care.
[2019-04-16] MEDS: SODIUM CHLORIDE 0.9% 1,000 ML IV SCH (13:00)
[2019-04-16] MEDS: MIDAZOLAM DRIP 50 mg/50mL 50 ML IV SCH (13:17)
[2019-04-16] MEDS: AZITHROMYCIN 500MG/ 250ML 250 ML IV SCH (13:45)
--- NOTE | 2019-04-16 15:00 | NUR ---
WOUND CARE NOTE: WOUND CARE TEAM MONITORING PATIENT FOR SKIN INTEGRITY D/T LOW FAYE SCORES/INTUBATION STATUS. PATIENT CONTINUES TO BE INTUBATED, SEDATED. SHE HAS CURRENT FAYE SCORE OF 11. PATIENT'S INTERTRIGINOUS RASH TO ABDOMINAL PANNUS HAS RESOLVED, WITH PATIENT'S SKIN PINK, BLANCHABLE, MOIST. BILATERAL SHINS CONTINUE TO DISPLAY A VARIETY OF SCABS OVER XEROSIS. DRY SKIN HAS IMPROVED, NO OPEN WOUNDS, NO DRAINING/WEEPING AREAS NOTED. NO OTHER SKIN INTEGRITY ISSUES NOTED. RECOMMEND: CONTINUATION WITH ALL WOUND CARE ORDERS PREVIOUSLY PRESCRIBED BY MD. WOUND CARE TEAM WILL CONTINUE TO MONITOR.
--- NOTE | 2019-04-16 16:45 | NUR ---
Cooling Measures applied. Patient currently has temp of 99.7 , cooling measures in place.
[2019-04-16] MEDS: DOPamine 1600MCG/ML D5W 250 ML IV SCH (18:00)
[2019-04-16] MEDS: DAPTOmycin 500 MG in SODIUM CHL 0.9% 50 ML IV SCH (18:00)
--- NOTE | 2019-04-16 20:05 | NUR ---
elevated temperature cooling measures are in place
[2019-04-17] VITALS (65 sets, daily range): BP systolic 97–174; BP diastolic 44–77
[2019-04-17] MEDS: LEVALBUTEROL HCL 1.25 MG/3 ML NEB NEB SCH ×4 (00:16→18:44)
--- NOTE | 2019-04-17 01:30 | NUR ---
dr contreras paged pt bp elevated, pagezacarias to get orders.
--- NOTE | 2019-04-17 01:54 | NUR ---
still awaiting dr vianney post
--- NOTE | 2019-04-17 03:12 | NUR ---
hygiene partial bed bath given, partial jung changed
[2019-04-17] MEDS: ACCU-CHEK COMFORT CURVE STRIP VI SCH ×7 (04:04→23:40)
[2019-04-17] MEDS: InsuLIN REG 1unit/0.01ml Soln (100units/ml) SC SCH ×7 (04:05→23:40)
[2019-04-17 04:15] LABS: Basophils # (auto) 0 uL; Eosinophils # (auto) 0 uL; Eosinophils % (auto) 0.2 % (0.0-7.0); Monocytes % (auto) 4.5 % (0.0-12.0); Red Blood Cells 4.12 10^6/uL (4.0-5.20)
[2019-04-17 04:16] LABS: Basophils % (auto) 0.2 % (0.0-2.0); Hemoglobin 10.9 g/dL (12.2-16.2); Lymphocytes # (auto) 3.1 uL; Mean Corpuscular Hemoglobin 26.5 pg (28.0-32.0); Mean Corpuscular Hgb Conc. 32.2 g/dL (32.0-36.0); Mean Corpuscular Volume 82.4 fL (80.0-100.0); Monocytes # (auto) 0.5 uL; Neutrophils # (auto) 8.6 uL; Neutrophils % (auto) 70.1 % (37.0-80.0); Platelet Count (auto) 175 10^3/uL (140-450); Red Cell Distribution Width 14.6 % (11.8-14.3); White Blood Cell 12.3 10^3/uL (4.4-10.8)
[2019-04-17 04:38] LABS: BUN/Creatinine Ratio 37.4; Calcium 8.8 mg/dL (8.5-10.1); Magnesium 1.6 mg/dL (1.6-2.6); Potassium 3.2 mmol/L (3.5-5.1)
--- NOTE | 2019-04-17 05:10 | NUR ---
suction tubing and canisters changed
[2019-04-17] MEDS: SODIUM CHLORIDE 0.9% 1,000 ML IV SCH ×2 (05:25→22:05)
[2019-04-17] MEDS: IPRATROPIUM BROM 0.5 MG/2.5ML INH SOL NEB SCH ×3 (06:27→18:43)
--- NOTE | 2019-04-17 06:45 | NUR ---
pt remains intubated, vs stable, ivs patent. no signs of distress noted. pt tolerates care
[2019-04-17] MEDS: INSULIN NPH Isophane (HUMAN) 1unit/0.01ml Susp(100units/ml) SC SCH ×2 (07:00→19:46)
--- NOTE | 2019-04-17 07:39 | NUR ---
report given and care endorsed to keyanna davis
[2019-04-17] MEDS: PROPOFOL 100 ML IV SCH (08:06)
--- NOTE | 2019-04-17 08:30 | NUR ---
INITIAL/ONGOING ASSESSMENT: Patient remains off of sedation, opens eyes spontaneously but does not track, does not respond to verbal stimulus. Patient noted to be moving all 4 extremities.
[2019-04-17] MEDS: fentaNYL Drip 2500mCg/250mlNS 250 ML IV SCH (08:49)
[2019-04-17] MEDS: POTASSIUM CHL 20MEQ/100ML 100 ML IV SCH ×3 (09:00→13:00)
[2019-04-17] MEDS ORDERED: acetaZOLAMIDE SODIUM 500 MG VL IV ONE (10:30)
[2019-04-17] MEDS: FAMOTIDINE (10MG/ML) 2ML VL IV SCH (10:58)
[2019-04-17] MEDS: ENOXAPARIN SOD 30 MG/0.3 ML SYRINGE SC SCH (10:59)
[2019-04-17] MEDS: LINEZOLID 600MG/300ML 300 ML IV SCH ×2 (10:59→21:53)
[2019-04-17] MEDS: NOREPINEPHRINE 8 MG/250ML KIT 250 ML IV SCH (11:15)
[2019-04-17] MEDS: DOPamine 1600MCG/ML D5W 250 ML IV SCH (12:45)
[2019-04-17] MEDS: MIDAZOLAM DRIP 50 mg/50mL 50 ML IV SCH (13:17)
--- NOTE | 2019-04-17 14:56 | NUR ---
assessment Patient is a 69 year old female who is on a vent. Per patients sister Marleen prior to admission patient lived home with her caregiver for the past 10 years Mikey Saravia and functioned with his assistance. Per Marleen patient has a fww and home 02 at home. I informed Marleen patients post discharge needs to be determined after extubation and prior to discharge. Marleen verbalized understanding. Addendum: 04/17/19 at 1458 by Cherrie PIRES Amended: Links added.
--- NOTE | 2019-04-17 16:30 | NUR ---
SKIN ASSESSMENT: Patient with development of new skin tear to left buttock, wound care photos taken.
--- NOTE | 2019-04-17 17:15 | NUR ---
RADIOLOGY: Spoke with radiology, informed them that due to high acuity in ICU and no Radiology nurse for transport patient will not be able to be brought to CT this shift. Will endorse to evening or night nurse supervisor.
--- NOTE | 2019-04-17 19:30 | NUR ---
OPENING SHIFT RECEIVED REPORT FROM DAY SHIFT RN. ASSUMED CARE OF PATIENT. PATIENT IN BED INTUBATED - SIZE 8, 22 AT THE LIP. NO SIGNS OR SYMPTOMS OF SOB, PAIN OR DISTRESS. CURRENTLY ON AC 12/TV500/FI02 30%/PEEP 5, RIGHT INTERNAL JUGULAR TLC - CLEAN/DRY/INTACT, CURRENTLY RUNNING DOPAMINE: 2.5MCG/KG/MIN AND NORMAL SALINE: 60ML/HR. REPOSITIONED FOR COMFORT. SEBASTIAN HUNG TO GRAVITY. BED IN LOWEST POSITION, SIDE RAILS UP X2. WILL CONTINUE TO MONITOR.
[2019-04-18] VITALS (70 sets, daily range): BP systolic 91–168; BP diastolic 40–72
[2019-04-18] MEDS: LEVALBUTEROL HCL 1.25 MG/3 ML NEB NEB SCH ×4 (00:13→18:27)
--- NOTE | 2019-04-18 02:30 | NUR ---
MORNING CARE / CENTRAL LINE DRESSING CHANGE PERFORMED MORNING CARE WITH CHG WIPES AND WASH CLOTHS TO THE FACE. PARTIAL LINEN CHANGE AND GOWN CHANGED. ORAL AND SEBASTIAN CARE PERFORMED. REPOSITIONED FOR COMFORT. SKIN REASSESSED AT THIS TIME. REPOSITIONED FOR COMFORT. RIGHT INTERNAL JUGULAR TLC DRESSING CHANGED VIA STERILE TECHNIQUE. BED IN LOWEST POSITION, SIDE RAILS UP X2, CALL LIGHT WITHIN REACH. WILL CONTINUE TO MONITOR.
[2019-04-18] MEDS: ACCU-CHEK COMFORT CURVE STRIP VI SCH ×4 (03:50→18:00)
[2019-04-18] MEDS: InsuLIN REG 1unit/0.01ml Soln (100units/ml) SC SCH ×4 (03:50→19:03)
[2019-04-18 04:26] LABS: Basophils # (auto) 0 uL; Basophils % (auto) 0.1 % (0.0-2.0); Eosinophils # (auto) 0 uL; Eosinophils % (auto) 0.3 % (0.0-7.0); Hematocrit 34.4 % (36.0-46.0); Hemoglobin 10.8 g/dL (12.2-16.2); Lymphocytes # (auto) 3.6 uL; Lymphocytes % (auto) 31.5 % (10.0-50.0); Mean Corpuscular Hgb Conc. 31.3 g/dL (32.0-36.0); Mean Corpuscular Volume 83.1 fL (80.0-100.0); Monocytes # (auto) 0.5 uL; Monocytes % (auto) 4.8 % (0.0-12.0); Neutrophils # (auto) 7.3 uL; Neutrophils % (auto) 63.3 % (37.0-80.0); Platelet Count (auto) 176 10^3/uL (140-450); Red Blood Cells 4.14 10^6/uL (4.0-5.20); Red Cell Distribution Width 14.7 % (11.8-14.3); White Blood Cell 11.5 10^3/uL (4.4-10.8)
[2019-04-18 04:46] LABS: BUN/Creatinine Ratio 37.4; Calcium 8.7 mg/dL (8.5-10.1); Magnesium 1.8 mg/dL (1.6-2.6)
--- NOTE | 2019-04-18 05:20 | NUR ---
PAGED DR. DRAKE'S OFFICE LEFT A VOICEMAIL IN REGARDS TO POTASSIUM LEVEL - 3.0, AWAITING CALL BACK.
--- NOTE | 2019-04-18 05:30 | NUR ---
DR. BARRERA CALLED BACK MADE AWARE OF POTASSIUM - 3.0, RECEIVED ORDERS FOR 40 MEQ K RIDER. NOTED AND CARRIED OUT, WILL CONTINUE TO MONITOR.
[2019-04-18] MEDS: INSULIN NPH Isophane (HUMAN) 1unit/0.01ml Susp(100units/ml) SC SCH ×2 (06:24→19:03)
[2019-04-18] MEDS: POTASSIUM CHL 20MEQ/100ML 100 ML IV SCH ×2 (06:24→08:43)
[2019-04-18] MEDS: DOPamine 1600MCG/ML D5W 250 ML IV SCH (06:25)
[2019-04-18] MEDS: IPRATROPIUM BROM 0.5 MG/2.5ML INH SOL NEB SCH ×3 (06:48→18:27)
--- NOTE | 2019-04-18 07:30 | NUR ---
END OF SHIFT REPORT GIVEN TO DAY SHIFT RN. CARE ENDORSED.
--- NOTE | 2019-04-18 07:45 | NUR ---
DR EARL VISITS AND EXAMINES PATIENT-NO NEW ORDERS RECEIVED.
[2019-04-18] MEDS: PROPOFOL 100 ML IV SCH (08:06)
--- NOTE | 2019-04-18 08:30 | NUR ---
DR CARD VISITS AND EXAMINES PATIENT - ORDERS RECEIVED.
[2019-04-18] MEDS: fentaNYL Drip 2500mCg/250mlNS 250 ML IV SCH (08:42)
--- NOTE | 2019-04-18 09:15 | NUR ---
Respiratory note: TRANSPORTED PT TO CT ON TRANSPORT VENT WITH PT CURRENT SETTINGS OF AC 12/500/+5/30% WITHOUT ANY INCIDENTS. AMBU BAG WAS CONNECTED TO O2 SOURCE.
--- NOTE | 2019-04-18 10:20 | NUR ---
RECEIVED REPORT FROM CT RE: CT HEAD RESULT - CALL PLACED TO DR EARL.
--- NOTE | 2019-04-18 10:30 | NUR ---
Respiratory note: ADVANCED ETT AT THIS TIME FROM [address] JACK. NO INCIDENT OCCURRED. WILL CONTINUE TO MONITOR PT. DR. JACK IS AWARE.
--- NOTE | 2019-04-18 10:45 | NUR ---
DR JACK STATES NO NEED FOR REPEAT CXR TO CHECK ETT PLACEMENT AFTER REPOSITIONING PER RT.
--- NOTE | 2019-04-18 11:00 | NUR ---
DR JACK VISITS AND EXAMINES PATIENT-NO ORDERS RECEIVED.
[2019-04-18] MEDS: NOREPINEPHRINE 8 MG/250ML KIT 250 ML IV SCH (11:15)
--- NOTE | 2019-04-18 11:30 | NUR ---
DR COYLE VISITS - NO NEW ORDERS RECEIVED.
--- NOTE | 2019-04-18 11:50 | NUR ---
WOUND CARE NOTE: Wound care in to see patient for skin/wound assessment. Patient continue resting in ICU bed in Rm. 104. Patient is still intubated, sedated and mechanically ventilated. Patient appears to be in no pain using [place] Mccullough Faces Pain Scale. Her Estuardo score is 12. Skin assessment done with the assistance of patient's nurse, ISAAC Garrett. Patient developed partial thickness skin tear to Lt. lower buttock. Bedside nurse took photograph of patient's wound upon discovery for reference. Wound measuring 6.5x5cm. Wound is red with pink/red periwound, no drainage/odor noted. Cleansed skin tear with mild soap and water,patted dry, applied Thera honey gauze and covered with Opti foam gentle dressing. Patient's bilateral lower leg/shins continue to display multi dry intact scabs, area is clean and dry, left open to air. Patient's lower abdominal fold continue to display hyperpigmented skin with intertriginous dermatitis. Patient is receiving BID/PRN cleaning and application of Barrier cream to sacral, buttocks and lower abdominal fold intertrigo. Patient tolerated well, repositioned for comfort facing her Lt. side, redistributed pressure points with pillows. ISAAC Garrett at bedside. RECOMMENDATION: Nursing to continue with EOD/PRN dressing change to Lt lower buttock skin tear per MD order, continuation of all other wound care orders prescribed by MD, continue with skin/wound plan of care, continue monitoring by wound care while patient is mechanically ventilated. Addendum: 04/18/19 at 1550 by Vicky Lee RN Amended: Links added.
[2019-04-18] MEDS: Glucerna 1.2 Cal 1Liter BOTTLE GT SCH (12:00)
[2019-04-18] MEDS: MAGNESIUM SULFATE 1GM/100ML 100 ML IV SCH ×2 (12:01→14:27)
[2019-04-18] MEDS: ENOXAPARIN SOD 30 MG/0.3 ML SYRINGE SC SCH (12:02)
[2019-04-18] MEDS: FAMOTIDINE (10MG/ML) 2ML VL IV SCH (12:02)
[2019-04-18] MEDS: LINEZOLID 600MG/300ML 300 ML IV SCH ×2 (12:03→21:49)
--- NOTE | 2019-04-18 13:00 | NUR ---
DR EARL RETURNS CALL-GIVEN CT RESULTS - NO NEW ORDERS RECEIVED.
[2019-04-18] MEDS: MIDAZOLAM DRIP 50 mg/50mL 50 ML IV SCH (13:17)
[2019-04-18] MEDS: SODIUM CHLORIDE 0.9% 1,000 ML IV SCH (14:45)
[2019-04-18] MEDS ORDERED: DEXTROSE (50%) 50ML SYRG IV PRN (14:45)
--- NOTE | 2019-04-18 14:45 | NUR ---
EEG COMPLETED AT BEDSIDE. RN MICK AWARE.
[2019-04-18] MEDS: Pro-Stat SF 30ml Vanilla GT SCH ×2 (16:00→21:50)
[2019-04-18 17:00] LABS: BUN/Creatinine Ratio 38.2; Calcium 8.8 mg/dL (8.5-10.1); Potassium 3.6 mmol/L (3.5-5.1)
[2019-04-18] MEDS: DAPTOmycin 500 MG in SODIUM CHL 0.9% 50 ML IV SCH (17:16)
--- NOTE | 2019-04-18 19:00 | NUR ---
OPENING NOTE ASSUMED CARE OF PATIENT AT THIS TIME. REPORT RECEIVED FROM DAY SHIFT RN. POC REVIEWED. HEAD TO TOE ASSESSMENT COMPLETE, SEE INTERVENTION SPREADSHEET FOR COMPLETE PHYSICAL ASSESSMENT DETAILS. RECEIVED PT INTUBATED, MINIMAL RESPONSE TO STIMULATION. NO SEDATION AT THIS TIME. RECEIVED PT WITH NGT WITH TF AT 3O MLS/HR. 10 MLS ASPIRATED, POSITIVE PLACEMENT ASSED. IV SITE BENIGN. SEBASTIAN CATHETER DRAINING TO GRAVITY. RECEIVED PT ON ISO FOR MRSA SPUTUM, NARES AND BLOOD. BED LOCKED AND IN LOWEST POSITION, SAFETY PRECAUTIONS IN PLACE. WILL MONITOR PT CAREFULLY.
[2019-04-18] MEDS: ACETAMINOPHEN 650 mg PER 20 mL UD PO PRN (22:37)
[2019-04-19] VITALS (107 sets, daily range): BP systolic 78–151; BP diastolic 34–99
[2019-04-19] MEDS: ACCU-CHEK COMFORT CURVE STRIP VI SCH ×4 (00:03→17:39)
[2019-04-19] MEDS: InsuLIN REG 1unit/0.01ml Soln (100units/ml) SC SCH ×4 (00:03→17:39)
--- NOTE | 2019-04-19 00:10 | NUR ---
Residuals 05 mls aspirated, continue tf at 30 mls/hr.
[2019-04-19] MEDS: LEVALBUTEROL HCL 1.25 MG/3 ML NEB NEB SCH ×4 (00:27→18:42)
[2019-04-19 03:49] LABS: Basophils # (auto) 0 uL; Basophils % (auto) 0.3 % (0.0-2.0); Eosinophils # (auto) 0 uL; Eosinophils % (auto) 0.4 % (0.0-7.0); Lymphocytes # (auto) 3.9 uL; Lymphocytes % (auto) 39.7 % (10.0-50.0); Mean Corpuscular Hemoglobin 26.8 pg (28.0-32.0); Mean Corpuscular Hgb Conc. 32.3 g/dL (32.0-36.0); Mean Corpuscular Volume 82.9 fL (80.0-100.0); Monocytes # (auto) 0.6 uL; Monocytes % (auto) 5.9 % (0.0-12.0); Neutrophils # (auto) 5.3 uL; Neutrophils % (auto) 53.7 % (37.0-80.0); Nucleated Red Blood Cells % 0.1 %; Platelet Count (auto) 180 10^3/uL (140-450); Red Cell Distribution Width 14.4 % (11.8-14.3); White Blood Cell 9.9 10^3/uL (4.4-10.8)
[2019-04-19 04:09] LABS: Potassium 3.2 mmol/L (3.5-5.1)
[2019-04-19 04:16] LABS: Albumin 2.4 g/dL (3.4-5.0); BUN/Creatinine Ratio 37.9; Bilirubin, Total 0.4 mg/dL (0.2-1.0); Calcium 8.9 mg/dL (8.5-10.1); Magnesium 2.2 mg/dL (1.6-2.6); Total Protein 7.1 g/dL (6.4-8.2)
--- NOTE | 2019-04-19 04:55 | NUR ---
Bathing/linen change Pt given CHG bath with linen change. New skin tear noted on back left flank. Wound care pictures taken, occlusive dressing placed on tear. Pt tolerated well. Suction tubing and canister changed at this time, oral care provided. Bed locked and in lowest position, safety precautions in place. Will continue with care.
--- NOTE | 2019-04-19 04:58 | NUR ---
Residuals 0 mls aspirated, continue TF at 30 mls/hr.
[2019-04-19] MEDS: IPRATROPIUM BROM 0.5 MG/2.5ML INH SOL NEB SCH ×3 (06:16→18:42)
[2019-04-19] MEDS: INSULIN NPH Isophane (HUMAN) 1unit/0.01ml Susp(100units/ml) SC SCH ×2 (06:35→17:39)
[2019-04-19] MEDS: SODIUM CHLORIDE 0.9% 1,000 ML IV SCH (07:16)
[2019-04-19] MEDS: fentaNYL Drip 2500mCg/250mlNS 250 ML IV SCH (07:22)
[2019-04-19] MEDS: PROPOFOL 100 ML IV SCH (07:22)
--- NOTE | 2019-04-19 07:30 | NUR ---
Residuals 0 mls aspirated, NGT TO RIGHT NARE, PLACEMENT CONFIRMED. Continue TF at 30 mls/hr.
[2019-04-19] MEDS: POTASSIUM CHL 20MEQ/100ML 100 ML IV SCH ×4 (08:56→14:00)
[2019-04-19] MEDS: Pro-Stat SF 30ml Vanilla GT SCH ×2 (09:42→22:00)
[2019-04-19] MEDS: ENOXAPARIN SOD 30 MG/0.3 ML SYRINGE SC SCH (09:43)
[2019-04-19] MEDS: LINEZOLID 600MG/300ML 300 ML IV SCH ×2 (09:43→22:06)
[2019-04-19] MEDS: FAMOTIDINE (10MG/ML) 2ML VL IV SCH (09:43)
--- NOTE | 2019-04-19 10:13 | NUR ---
BLOOD CULTURES CURRENTLY BEING DRAWN.
[2019-04-19] MEDS: DOPamine 1600MCG/ML D5W 250 ML IV SCH (12:28)
--- NOTE | 2019-04-19 12:30 | NUR ---
WOUND CARE NOTE: PATIENT NOTED TO HAVE NEW SKIN TEAR TO THE LEFT FLANK, WOUND PHOTOS TAKEN UPON ASSESSMENT BY BEDSIDE NURSE FOR REFERENCE. PATIENT REMAINS INTUBATED, NON RESPONSIVE. CURRENT FAYE SCORE IS 11. PATIENT WOULD BENEFIT FROM A SPECIALTY AIR MATTRESS AT THIS TIME. ORDERED VCP 500 AIR BED. PATIENT TO BE PLACED, PENDING DELIVERY BY [facility]. PATIENT SHOULD ALSO HAVE EOD/PRN DRESSING CHANGE WITH THERAHONEY AND OPTIFOAM GENTLE DRESSING TO RIGHT FLANK SKIN TEAR. WOUND CARE TEAM WILL CONTINUE TO MONITOR.
[2019-04-19] MEDS: MIDAZOLAM DRIP 50 mg/50mL 50 ML IV SCH (13:17)
--- NOTE | 2019-04-19 14:11 | NUR ---
DR. JACK HERE TO SEE PATIENT. SEE MD NOTES AND EMR FOR ANY NEW ORDERS.
[2019-04-19] MEDS: DexMEDEtomidine 400 MCG in D5W 5% 96 ML IV SCH (19:00)
--- NOTE | 2019-04-19 19:00 | NUR ---
OPENING NOTE ASSUMED CARE OF PATIENT AT THIS TIME. REPORT RECEIVED FROM DAY SHIFT RN. POC REVIEWED. HEAD TO TOE ASSESSMENT COMPLETE, SEE INTERVENTION SPREADSHEET FOR COMPLETE PHYSICAL ASSESSMENT DETAILS. RECEIVED PT INTUBATED, MINIMAL RESPONSE TO STIMULATION. NO SEDATION AT THIS TIME. RECEIVED PT WITH NGT WITH TF AT 3O MLS/HR. 0 MLS ASPIRATED, POSITIVE PLACEMENT ASSESSED. IV SITE BENIGN. SEBASTIAN CATHETER DRAINING TO GRAVITY. RECEIVED PT ON ISO FOR MRSA SPUTUM, NARES AND BLOOD. BED LOCKED AND IN LOWEST POSITION, SAFETY PRECAUTIONS IN PLACE. WILL MONITOR PT CAREFULLY.
[2019-04-20] VITALS (107 sets, daily range): BP systolic 76–156; BP diastolic 24–124
--- NOTE | 2019-04-20 00:07 | NUR ---
RESIDUALS 0 MLS ASPIRATED FROM OGT. CONTINUE TF AT 30 MLS/HR.
[2019-04-20] MEDS: LEVALBUTEROL HCL 1.25 MG/3 ML NEB NEB SCH ×4 (00:28→19:08)
--- NOTE | 2019-04-20 01:00 | NUR ---
BED BATH/BED TRANSFER PT GIVEN COMPLETE BED BATH WITH LINEN CHANGE AND TRANSFERRED TO SPECIALTY BED PER WOUND CARE RECOMMENDATION. PT TOLERATED WELL. SAFETY PRECAUTIONS MAINTAINED.
--- NOTE | 2019-04-20 01:02 | NUR ---
SKIN ASSESSMENT/WOUND CARE PHOTOS 3 NEW SKIN TEARS NOTED ON PATIENT'S BACK. WOUND CARE PHOTOS TAKEN. OPTIFOAM PLACED OVER AFFECTED AREAS.
[2019-04-20 04:26] LABS: Basophils # (auto) 0 uL; Basophils % (auto) 0.5 % (0.0-2.0); Eosinophils # (auto) 0.1 uL; Eosinophils % (auto) 0.9 % (0.0-7.0); Hematocrit 32.5 % (36.0-46.0); Hemoglobin 10.5 g/dL (12.2-16.2); Lymphocytes # (auto) 2.7 uL; Lymphocytes % (auto) 31.1 % (10.0-50.0); Mean Corpuscular Hgb Conc. 32.3 g/dL (32.0-36.0); Mean Corpuscular Volume 83.8 fL (80.0-100.0); Monocytes # (auto) 0.5 uL; Monocytes % (auto) 5.2 % (0.0-12.0); Neutrophils # (auto) 5.5 uL; Neutrophils % (auto) 62.3 % (37.0-80.0); Nucleated Red Blood Cells % 0.1 %; Platelet Count (auto) 130 10^3/uL (140-450); Red Blood Cells 3.88 10^6/uL (4.0-5.20); Red Cell Distribution Width 14.5 % (11.8-14.3); White Blood Cell 8.8 10^3/uL (4.4-10.8)
[2019-04-20 04:41] LABS: BUN/Creatinine Ratio 41.2; Calcium 8.9 mg/dL (8.5-10.1); Magnesium 2.2 mg/dL (1.6-2.6); Potassium 3.8 mmol/L (3.5-5.1)
--- NOTE | 2019-04-20 04:44 | NUR ---
RESIDUALS 0 MLS ASPIRATED. TF BOTTLE CHANGED OUT WITH TUBING. APPROPRIATE DATE/TIME/INITIALS ON TUBING/BOTTLE. CONTINUE TF AT 30 MLS/HR.
--- NOTE | 2019-04-20 04:45 | NUR ---
NEURO PT MOVES RIGHT EXTREMITIES, NO MOVEMENT NOTED FROM LEFT EXTREMITIES. LEFT ARM SLIGHTLY CONTRACTED AND STIFF, NO REACTION TO STIMULATION ON LEFT SIDE. PT OPENS EYES SPONTANEOUSLY, DOES NOT FOLLOW COMMANDS OR TRACK.
[2019-04-20] MEDS: InsuLIN REG 1unit/0.01ml Soln (100units/ml) SC SCH ×4 (06:09→17:57)
[2019-04-20] MEDS: ACCU-CHEK COMFORT CURVE STRIP VI SCH ×4 (06:09→17:56)
[2019-04-20] MEDS: INSULIN NPH Isophane (HUMAN) 1unit/0.01ml Susp(100units/ml) SC SCH ×2 (06:14→17:56)
[2019-04-20] MEDS: IPRATROPIUM BROM 0.5 MG/2.5ML INH SOL NEB SCH ×3 (06:28→19:08)
[2019-04-20] MEDS: PROPOFOL 100 ML IV SCH (08:06)
[2019-04-20] MEDS: fentaNYL Drip 2500mCg/250mlNS 250 ML IV SCH (08:49)
[2019-04-20] MEDS: LINEZOLID 600MG/300ML 300 ML IV SCH ×2 (09:22→22:40)
[2019-04-20] MEDS: FAMOTIDINE (10MG/ML) 2ML VL IV SCH (09:22)
[2019-04-20] MEDS: Pro-Stat SF 30ml Vanilla GT SCH ×2 (09:23→22:00)
[2019-04-20] MEDS: ENOXAPARIN SOD 30 MG/0.3 ML SYRINGE SC SCH (09:23)
--- NOTE | 2019-04-20 11:55 | NUR ---
MD Dr. Sultana at bedside aware that patient only opens eyes to tactile stimuli and does not follow commands, MD states to " turn off tube feedings for 2 hours than CPAP follow with ABG."
--- NOTE | 2019-04-20 12:00 | NUR ---
NUTRITION NG tube checked and verified via air bolus; zero residuals aspirated and tube feedings turned off per MD orders.
--- NOTE | 2019-04-20 12:04 | NUR ---
Nutrition Follow-up Notes Wt.: 76.7 kg today Pt's in isolation room, intubated, non-sedated, no immediate family member at bedside during rounds earlier. Pt's currently NPO with EN support of Glucerna 1.2 Bret @ 30 ml/hr providing 864 kcal, 43 gms pro 580 ml free water, tolerate feeding , no residuals noted by RN this morning. Pt with inadequate EN support d/t low initiation rate delivery of concentrated formula aeb current EN infusion meets 42% to 52% of est caloric needs however meets 88% to 110% of est protein needs (with Prostat). Est. Needs: 1650 kcal to 2050 kcal (20-25 kcal/kgBW), 66 gms to 83 gms pro (0.8-1.0 gms/kgBW). Will continue to monitor pertinent labs and reassess nutrient need prn LABS: Gluc 194 H, BUN 61 H, Cr 1.48 H; Alb 2.4 L, HbA1c 10.8 H, SKIN: Estuardo Score 11, high risk, pt's left right lower abdominal fold moisture related dermatitis, intertrigo per RN doc. Pls refer to latest switch cleaner's notes for further details re: tx plans. GI: Pt's no bowel activity since 04/09/19 per teleprinter installer PES: Altered nutrition related lab values RT acute/chronic medical condition AEB hyperglycemia, hyponatremia, hyperkalemia, elev. renal labs, LFTs, HbA1c and severe hypoalbuminemia Increased nutrient needs RT current/chronic medical status AEB intubated, sedated,severe hypoalbuminemia, NPO. Will continue to monitor NPO status, EN tolerance, pertinent labs, skin status and weight trends. F/u in 2 to 3 days. Additional Rec.: 1.) If still NPO with EN support, consider gradual increase on feeding rate of Glucerna 1.2 Bret to 70 ml/hr goal rate as tolerated when medically appropriate. 2.) Consider daily MVI with minerals and Asc acid 500 mgs BID. 3.) If Albumin/Prealbumin improved meeting and tolerating EN support at its goal rate, consider d/c Prostat if medically appropriate. 4.) Advance gradually to oral diet when medically appropriate. 5.) Refer to CDE/RD for further nutrition educ. and weight monitoring upon discharge. 6.) Continue current plan of care.
[2019-04-20] MEDS: MIDAZOLAM DRIP 50 mg/50mL 50 ML IV SCH (13:17)
--- NOTE | 2019-04-20 14:45 | NUR ---
MD Dr. Whitney at bedside updated on patient condition with new order, this RN to input into system. Will carry out order per MD.
--- NOTE | 2019-04-20 14:55 | NUR ---
MD Dr. Rainey at bedside updated on patient condition with new orders, MD to input into system.
--- NOTE | 2019-04-20 15:30 | NUR ---
CPAP TRIAL RT Will at bedside and placed patient on CPAP mode on ventilator.
--- NOTE | 2019-04-20 15:35 | NUR ---
CPAP TRIAL Patient failed CPAP trial secondary to patients volumes dropped down to the 100's and respiratory rate. Will notify .
--- NOTE | 2019-04-20 16:15 | NUR ---
MD Dr. Sultana called and spoke to him regarding patient failed CPAP trial with no new orders.
[2019-04-20] MEDS: DAPTOmycin 500 MG in SODIUM CHL 0.9% 50 ML IV SCH (16:23)
[2019-04-20] MEDS: DexMEDEtomidine 400 MCG in D5W 5% 96 ML IV SCH (19:00)
--- NOTE | 2019-04-20 19:00 | NUR ---
OPENING NOTE ASSUMED CARE OF PATIENT AT THIS TIME. REPORT RECEIVED FROM DAY SHIFT RN. POC REVIEWED. HEAD TO TOE ASSESSMENT COMPLETE, SEE INTERVENTION SPREADSHEET FOR COMPLETE PHYSICAL ASSESSMENT DETAILS. RECEIVED PT INTUBATED, PT OPENS EYES AND TRACKS BUT DOES NOT FOLLOW COMMANDS. NO SEDATION AT THIS TIME. RECEIVED PT WITH NGT WITH TF AT 3O MLS/HR. 0 MLS ASPIRATED, POSITIVE PLACEMENT ASSESSED. IV SITE BENIGN. SEBASTIAN CATHETER DRAINING TO GRAVITY. RECEIVED PT ON ISO FOR MRSA SPUTUM, NARES AND BLOOD. RECEIVED PT ON SPECIALTY MATTRESS. BED LOCKED AND IN LOWEST POSITION, SAFETY PRECAUTIONS IN PLACE. WILL MONITOR PT CAREFULLY.
[2019-04-21] VITALS (86 sets, daily range): BP systolic 68–134; BP diastolic 35–65
--- NOTE | 2019-04-21 00:12 | NUR ---
RESIDUALS 0 MLS ASPIRATED, CONTINUE TF AT 30 MLS/HR.
[2019-04-21] MEDS: LEVALBUTEROL HCL 1.25 MG/3 ML NEB NEB SCH ×4 (00:18→18:57)
[2019-04-21] MEDS: InsuLIN REG 1unit/0.01ml Soln (100units/ml) SC SCH ×4 (00:23→18:00)
[2019-04-21] MEDS: ACCU-CHEK COMFORT CURVE STRIP VI SCH ×4 (00:23→18:22)
--- NOTE | 2019-04-21 02:56 | NUR ---
LINEN CHANGE/ELIMINATION COMPLETE LINEN CHANGE PERFORMED. PT HAD SMALL SMEAR OF BM WHEN CLEANED. PT TOLERATED WELL. NO SKIN INTEGRITY CHANGES NOTED. SUCTION TUBING AND CANISTERS CHANGED AT THIS TIME. BED LOCKED AND IN LOWEST POSITION, SAFETY PRECAUTIONS IN PLACE. WILL CONTINUE WITH CARE.
[2019-04-21 04:11] LABS: Calcium 8.6 mg/dL (8.5-10.1); Magnesium 1.9 mg/dL (1.6-2.6); Potassium 4.2 mmol/L (3.5-5.1)
--- NOTE | 2019-04-21 04:12 | NUR ---
RESIDUALS 0 MLS ASPIRATED, CONTINUE TF AT GOAL RATE OF 30 MLS/HR.
[2019-04-21 04:13] LABS: BUN/Creatinine Ratio 35.3
[2019-04-21 04:14] LABS: Basophils # (auto) 0 uL; Basophils % (auto) 0.2 % (0.0-2.0); Eosinophils # (auto) 0 uL; Eosinophils % (auto) 0.2 % (0.0-7.0); Hematocrit 29.9 % (36.0-46.0); Hemoglobin 9.7 g/dL (12.2-16.2); Lymphocytes # (auto) 2.4 uL; Lymphocytes % (auto) 22.4 % (10.0-50.0); Mean Corpuscular Hemoglobin 27.1 pg (28.0-32.0); Mean Corpuscular Hgb Conc. 32.4 g/dL (32.0-36.0); Mean Corpuscular Volume 83.8 fL (80.0-100.0); Monocytes # (auto) 0.4 uL; Monocytes % (auto) 3.7 % (0.0-12.0); Neutrophils # (auto) 7.8 uL; Neutrophils % (auto) 73.5 % (37.0-80.0); Nucleated Red Blood Cells % 0.1 %; Platelet Count (auto) 142 10^3/uL (140-450); Red Blood Cells 3.57 10^6/uL (4.0-5.20); Red Cell Distribution Width 14.5 % (11.8-14.3); White Blood Cell 10.6 10^3/uL (4.4-10.8)
[2019-04-21] MEDS: IPRATROPIUM BROM 0.5 MG/2.5ML INH SOL NEB SCH ×3 (06:23→18:57)
[2019-04-21] MEDS: INSULIN NPH Isophane (HUMAN) 1unit/0.01ml Susp(100units/ml) SC SCH ×2 (06:30→18:00)
[2019-04-21] MEDS: fentaNYL Drip 2500mCg/250mlNS 250 ML IV SCH (07:57)
[2019-04-21] MEDS: PROPOFOL 100 ML IV SCH (07:57)
--- NOTE | 2019-04-21 09:40 | NUR ---
CPAP TRIAL PT AWAKENS WITH VERBAL STIMULATION, DOES NOT TRACK, UNABLE TO FOLLOW SIMPLE COMMANDS. PLACED PT ON CPAP TRIAL PER DR JACK'S ORDERS. PT'S RR INCREASED TO 37, LOW TIDAL VOLUMES 180 ML, WITH INCREASED WOB. PLACED PT BACK ON AC MODE ON PREVIOUSLY ORDERED SETTINGS. NOTIFIED ISAAC DESAI. WILL ATTEMPT AGAIN LATER, TOLERATED.
--- NOTE | 2019-04-21 09:46 | NUR ---
CPAP ATTEMPTED PATIENT OPENS EYES TO VOICE BUT DOES NOT TRACK OR FOLLOW ANY COMMANDS. SEDATION HAS BEEN OFF SINCE APRIL 14, 2019 PATIENTS RESPIRATORY RATE INCREASED TO MIDS 30S AND TIDAL VOLUMES 100-180. PATIENT PLACED BACK OF PREVIOUS SETTINGS. WILL ATTEMPT AGAIN LATER
[2019-04-21] MEDS: Pro-Stat SF 30ml Vanilla GT SCH ×2 (10:00→22:51)
--- NOTE | 2019-04-21 10:30 | NUR ---
DR CARD AT BEDSIDE DISCUSSED PATIENTS STATUS AND PLAN OF CARE, NEW ORDERS PLACED
[2019-04-21] MEDS: FAMOTIDINE (10MG/ML) 2ML VL IV SCH (10:36)
[2019-04-21] MEDS: LINEZOLID 600MG/300ML 300 ML IV SCH ×2 (10:37→21:03)
[2019-04-21] MEDS: ENOXAPARIN SOD 30 MG/0.3 ML SYRINGE SC SCH (10:38)
[2019-04-21] MEDS ORDERED: SODIUM CHLORIDE 0.9% 500 ML IV ONE (12:15)
[2019-04-21] MEDS: MIDAZOLAM DRIP 50 mg/50mL 50 ML IV SCH (13:17)
[2019-04-21] MEDS ORDERED: LEVALBUTEROL HCL 1.25 MG/3 ML NEB ONE (18:07)
[2019-04-21] MEDS: DexMEDEtomidine 400 MCG in D5W 5% 96 ML IV SCH (18:23)
--- NOTE | 2019-04-21 20:00 | NUR ---
Opening Shift Note Assumed care of patient, lying in bed with eyes closed, easily arousal by voice, looked toward sounds, right hand on mitten. Breathing on ETT with AC mode ventilator, even and synchronizes, No S/S of distress/SOB or pain. TLC at right IJ, CDI site, flushed ok. NGT connected to continuous feeding, no residual noted. Stevenson's catheter hung to gravity with clear straw to light rena urine. Bed in low position, call light within reach, fall and safety precaution in place, all alarms are audible. No family at bedside at this time, will continue to monitor for changes Q1hr and PRN.
[2019-04-21] MEDS ORDERED: PROPOFOL 100 ML IV ONE (20:17)
--- NOTE | 2019-04-21 22:00 | NUR ---
Condition update/ tube feeding Pt easily arousal, opened eyes by voice, looked and followed to the voice. Left arm rigid, with withdrawal side. Right arm severe weak, took mitten off, will continue to monitor. VSS, Temp 99.9F, cooling measures on. NGT with positive placement, no residual noted, increased TF to 40ml/hr as per EMAR. Continue care.
[2019-04-22] VITALS (58 sets, daily range): BP systolic 97–145; BP diastolic 40–70
[2019-04-22] MEDS: ACCU-CHEK COMFORT CURVE STRIP VI SCH ×4 (00:03→18:03)
[2019-04-22] MEDS: InsuLIN REG 1unit/0.01ml Soln (100units/ml) SC SCH ×4 (00:03→18:00)
--- NOTE | 2019-04-22 01:30 | NUR ---
Condition update Pt lying on bed with eyes closed, VSS. TF no residual noted, increased TF to 50ml/hr, will continue to observe. NGT tape changed, marked at 61 cms. Continue care.
--- NOTE | 2019-04-22 04:00 | NUR ---
Patient bathe/linen change / Elimination Pt passed a large amount of semi soft green/ yellowish BM. Patient given complete bath with CHG wipes and basin/soap. Stevenson's catheter care done, z-guard applied. Skin integrity assessed for any changes, no new changes. Complete linens changed. Patient repositioned to prevent pressure ulcer.
[2019-04-22 04:29] LABS: Basophils # (auto) 0 uL; Eosinophils # (auto) 0.1 uL; Eosinophils % (auto) 0.8 % (0.0-7.0); Hemoglobin 9.4 g/dL (12.2-16.2); Monocytes # (auto) 0.4 uL; Nucleated Red Blood Cells % 0.1 %; White Blood Cell 8.2 10^3/uL (4.4-10.8)
[2019-04-22 04:32] LABS: Basophils % (auto) 0.2 % (0.0-2.0); Hematocrit 28.7 % (36.0-46.0); Lymphocytes # (auto) 2.9 uL; Lymphocytes % (auto) 35.6 % (10.0-50.0); Mean Corpuscular Hemoglobin 26.9 pg (28.0-32.0); Mean Corpuscular Hgb Conc. 32.8 g/dL (32.0-36.0); Mean Corpuscular Volume 81.9 fL (80.0-100.0); Monocytes % (auto) 5.1 % (0.0-12.0); Neutrophils # (auto) 4.8 uL; Neutrophils % (auto) 58.3 % (37.0-80.0); Platelet Count (auto) 133 10^3/uL (140-450); Red Cell Distribution Width 14.7 % (11.8-14.3)
[2019-04-22 04:47] LABS: BUN/Creatinine Ratio 30.8; Calcium 8.4 mg/dL (8.5-10.1); Magnesium 2.3 mg/dL (1.6-2.6); Potassium 4.1 mmol/L (3.5-5.1)
--- NOTE | 2019-04-22 05:30 | NUR ---
Elimination/ wound d/s Pt passed a large amount of semisoft green/ yellowish BM. Glenda care and Stevenson's catheter care done with wash clothes/ no-rinse and CHG wipes. Optifoam at sacrum dirty from BM, took off. Wound at left hip dirty with BM. Left hip wound d/s with NS and patted dry, covered with honey gauze and optifoam. Left hip wound is red and dry. Re-position Pt to prevent pressure ulcer. Tolerated well. Continue care.
[2019-04-22] MEDS: INSULIN NPH Isophane (HUMAN) 1unit/0.01ml Susp(100units/ml) SC SCH ×2 (06:09→18:03)
[2019-04-22] MEDS: LEVALBUTEROL HCL 1.25 MG/3 ML NEB NEB SCH ×3 (06:48→18:29)
[2019-04-22] MEDS: IPRATROPIUM BROM 0.5 MG/2.5ML INH SOL NEB SCH ×3 (06:48→18:29)
[2019-04-22] MEDS: PROPOFOL 100 ML IV SCH (07:42)
[2019-04-22] MEDS: fentaNYL Drip 2500mCg/250mlNS 250 ML IV SCH (07:42)
--- NOTE | 2019-04-22 09:05 | NUR ---
DR BARRERA AT BEDSIDE DISCUSSED PLAN OF CARE
[2019-04-22] MEDS ORDERED: SODIUM CHLORIDE 0.9% 500 ML IV ONE (09:45)
--- NOTE | 2019-04-22 09:45 | NUR ---
DR JACK AT BEDSIDE NO NEW ORDERS AT THIS TIME
[2019-04-22] MEDS: Pro-Stat SF 30ml Vanilla GT SCH ×2 (10:00→22:00)
[2019-04-22] MEDS: ENOXAPARIN SOD 30 MG/0.3 ML SYRINGE SC SCH (10:29)
[2019-04-22] MEDS: LINEZOLID 600MG/300ML 300 ML IV SCH ×2 (10:29→22:13)
[2019-04-22] MEDS: FAMOTIDINE (10MG/ML) 2ML VL IV SCH (10:29)
--- NOTE | 2019-04-22 11:01 | NUR ---
ELIMINATION/ FLEXISEAL PLACED PATIENT HAVING FREQUENT LIQUID STOOLS, PLACED A FLEXISEAL TO KEEP STOOL OFF OF WOUNDS. PATIENT TOLERATED FAIR. WILL CONTINUE TO MONITOR CLOSELY
[2019-04-22] MEDS: SODIUM CHLORIDE 0.9% 1,000 ML IV SCH (11:03)
--- NOTE | 2019-04-22 11:40 | NUR ---
DR CARD AT BEDSIDE DISCUSSED PLAN OF CARE. NO NEW ORDERS AT THIS TIME
[2019-04-22] MEDS: MIDAZOLAM DRIP 50 mg/50mL 50 ML IV SCH (12:58)
--- NOTE | 2019-04-22 14:15 | NUR ---
Respiratory note: PT PLACED ON CPAP TRIAL PER DR JACK ORDER. SPO2 100% ON 30% FIO2, HR 82, RR 26, BS CLEAR/DIMINISHED BILATERALLY. RN MADE AWARE.
--- NOTE | 2019-04-22 15:03 | NUR ---
Respiratory note: PT PLACED ON SIMV PER DR JACK'S ORDER. PT TOLERATING CHANGE WELL. RN MADE AWARE. WILL CONTINUE TO MONITOR PT.
--- NOTE | 2019-04-22 15:04 | NUR ---
DR JACK NOTIFIED OF PATIENTS CURRENT STATUS ON CPAP RR INCREASING. NEW VENT ORDERS GIVEN AND IMPLEMENTED.
[2019-04-22] MEDS: DAPTOmycin 500 MG in SODIUM CHL 0.9% 50 ML IV SCH (15:38)
--- NOTE | 2019-04-22 16:45 | NUR ---
Respiratory note: ABG READ BACK TO DR JACK. FIO2 INCREASED TO 40% PER DR JACK REQUEST. PT TOLERATING CHANGE WELL. RN MADE AWARE.
[2019-04-22] MEDS: DexMEDEtomidine 400 MCG in D5W 5% 96 ML IV SCH (18:04)
--- NOTE | 2019-04-22 19:00 | NUR ---
OPENING NOTE ASSUMED CARE OF PATIENT AT THIS TIME. REPORT RECEIVED FROM DAY SHIFT RN. POC REVIEWED. HEAD TO TOE ASSESSMENT COMPLETE, SEE INTERVENTION SPREADSHEET FOR COMPLETE PHYSICAL ASSESSMENT DETAILS. RECEIVED PT INTUBATED, PT OPENS EYES AND TRACKS BUT DOES NOT FOLLOW COMMANDS. NO SEDATION AT THIS TIME. RECEIVED PT WITH NGT WITH TF AT 5O MLS/HR. 0 MLS ASPIRATED, POSITIVE PLACEMENT ASSESSED. IV SITE BENIGN. SEBASTIAN CATHETER DRAINING TO GRAVITY. FLEXISEAL IN PLACE WITH LIQUID STOOL OUTPUT. RECEIVED PT ON ISO FOR MRSA SPUTUM, NARES AND BLOOD. RECEIVED PT ON SPECIALTY MATTRESS. BED LOCKED AND IN LOWEST POSITION, SAFETY PRECAUTIONS IN PLACE. WILL MONITOR PT CAREFULLY.
--- NOTE | 2019-04-22 19:43 | NUR ---
GRANDSON PRINCE CALLED TO GET UPDATE. PW PROVIDED, UPDATE GIVEN. PER PRINCE, PT HAD ONE DAUGHTER THAT MANY YEARS AGO AND PRINCE IS HER SON. HE WOULD LIKE TO BE NOTIFIED WHEN PATIENT TRANSFERS TO [facility].
[2019-04-23] VITALS (47 sets, daily range): BP systolic 106–169; BP diastolic 38–63
[2019-04-23] MEDS: ACCU-CHEK COMFORT CURVE STRIP VI SCH ×5 (00:08→23:53)
[2019-04-23] MEDS: InsuLIN REG 1unit/0.01ml Soln (100units/ml) SC SCH ×5 (00:08→23:53)
--- NOTE | 2019-04-23 00:15 | NUR ---
RESIDUALS 0 MLS ASPIRATED, CONTINUE TF AT 50 MLS/HR.
[2019-04-23] MEDS: SODIUM CHLORIDE 0.9% 1,000 ML IV SCH (02:49)
[2019-04-23 04:04] LABS: Basophils # (auto) 0 uL; Basophils % (auto) 0.2 % (0.0-2.0); Eosinophils # (auto) 0.1 uL; Eosinophils % (auto) 1.1 % (0.0-7.0); Hematocrit 26.3 % (36.0-46.0); Hemoglobin 8.5 g/dL (12.2-16.2); Lymphocytes # (auto) 2.4 uL; Lymphocytes % (auto) 31.8 % (10.0-50.0); Mean Corpuscular Hemoglobin 27.3 pg (28.0-32.0); Mean Corpuscular Hgb Conc. 32.5 g/dL (32.0-36.0); Mean Corpuscular Volume 83.9 fL (80.0-100.0); Monocytes # (auto) 0.4 uL; Monocytes % (auto) 5.8 % (0.0-12.0); Neutrophils # (auto) 4.5 uL; Neutrophils % (auto) 61.1 % (37.0-80.0); Nucleated Red Blood Cells % 0.1 %; Platelet Count (auto) 107 10^3/uL (140-450); Red Blood Cells 3.13 10^6/uL (4.0-5.20); Red Cell Distribution Width 14.5 % (11.8-14.3); White Blood Cell 7.4 10^3/uL (4.4-10.8)
--- NOTE | 2019-04-23 04:20 | NUR ---
RESIDUALS NO RESIDUALS ASPIRATED, CONTINUE TF AT 50 MLS/HR.
[2019-04-23 04:22] LABS: BUN/Creatinine Ratio 37.7; Calcium 8.1 mg/dL (8.5-10.1); Magnesium 2.2 mg/dL (1.6-2.6); Potassium 3.9 mmol/L (3.5-5.1)
--- NOTE | 2019-04-23 05:15 | NUR ---
BATHING/LINEN CHANGE PT GIVEN BED BATH WITH LINEN CHANGE. FLEXISEAL LEAKING, MODERATE AMOUNT OF STOOL CLEANED IN [place] AREA. SUCTION TUBING AND CANISTERS CHANGED AT THIS TIME. SAFETY PRECAUTIONS MAINTAINED. WILL CONTINUE WITH CARE.
[2019-04-23] MEDS: IPRATROPIUM BROM 0.5 MG/2.5ML INH SOL NEB SCH ×3 (05:55→18:17)
[2019-04-23] MEDS: LEVALBUTEROL HCL 1.25 MG/3 ML NEB NEB SCH ×3 (05:55→18:17)
[2019-04-23] MEDS: INSULIN NPH Isophane (HUMAN) 1unit/0.01ml Susp(100units/ml) SC SCH ×2 (06:11→18:30)
[2019-04-23] MEDS: fentaNYL Drip 2500mCg/250mlNS 250 ML IV SCH (07:36)
[2019-04-23] MEDS: PROPOFOL 100 ML IV SCH (07:36)
[2019-04-23] MEDS: MIDAZOLAM DRIP 50 mg/50mL 50 ML IV SCH (07:39)
[2019-04-23] MEDS: DexMEDEtomidine 400 MCG in D5W 5% 96 ML IV SCH (07:40)
--- NOTE | 2019-04-23 09:00 | NUR ---
NO RESIDUAL TF NOTED WITH ASPIRATION OF TF. GLUCERNA TURNED OFF IN PREPARATION FOR CPAP TRIAL PER ORDERS.
[2019-04-23] MEDS: Pro-Stat SF 30ml Vanilla GT SCH ×2 (10:00→22:00)
--- NOTE | 2019-04-23 10:02 | NUR ---
DR CARD VISITS AND EXAMINES PATIENT - ORDERS RECEIVED. Addendum: 04/23/19 at 8276 by Tami Álvarez RN ERROR - WRONG TIME CHARTED - DR CARD VISITED AT 0830
[2019-04-23] MEDS ORDERED: BUMETANIDE 2.5mg/10ml (0.25 mg/ml) INJ IV SCH (10:30)
--- NOTE | 2019-04-23 10:30 | NUR ---
DR DRAKE VISITS AND EXAMINES PATIENT - ORDERS RECEIVED.
[2019-04-23] MEDS: LINEZOLID 600MG/300ML 300 ML IV SCH ×2 (11:05→22:00)
[2019-04-23] MEDS: FAMOTIDINE (10MG/ML) 2ML VL IV SCH (11:05)
[2019-04-23] MEDS: POTASSIUM EFFERVESENT TAB 25 MEQ GT SCH (11:05)
[2019-04-23] MEDS: ENOXAPARIN SOD 30 MG/0.3 ML SYRINGE SC SCH (11:15)
[2019-04-23 11:42] LABS: Sodium Urine 43 mmol/L (40-220)
[2019-04-23 11:46] LABS: Creatinine, Urine 73 mg/dL (30.0-125.0)
[2019-04-23 11:48] LABS: Urine Bacteria NONE SEEN /hpf (None Seen); Urine Blood 1+ /uL (Negative); Urine Specific Gravity 1.018 (1.001-1.035); Urine WBC 64 /hpf (0 - 5)
--- NOTE | 2019-04-23 12:24 | NUR ---
Placed a follow [place] [facility] [phone], spoke with Mona who advised this patient was on hospice prior to admission with [facility] [phone] located in [place]. Patient is straight Medicare per Mona and that is for the hospital stay however patient will be redirected by default to [facility] upon discharge and any lower lever discharge needs should be referred to [facility].
--- NOTE | 2019-04-23 15:00 | NUR ---
Respiratory note: CPAP TRIAL INITIATED. HR 73, RR 26, VT 300, SPO2 99%, BP 133/57
--- NOTE | 2019-04-23 16:30 | NUR ---
ABG RESULTS AND CPAP PARAMETERS CALLED TO DR WHEAT - STATES NOT TO EXTUBATE PATIENT THIS AFTERNOON PATIENT NOT FOLLOWING COMMANDS -MIKE CASEY NOTIFIED.
--- NOTE | 2019-04-23 16:30 | NUR ---
Nutrition Follow-up Notes Wt.: 85.3 kg today Pt's in isolation room, intubated, non-sedated, no immediate family member at bedside during rounds earlier, with plans to extubate today. Pt's currently NPO with EN support of Glucerna 1.2 Bret @ 30 ml/hr providing 864 kcal, 43 gms pro 580 ml free water, tolerate feeding , no residuals noted by RN this morning. Pt with inadequate EN support d/t low initiation rate delivery of concentrated formula aeb current EN infusion meets 42% to 52% of est caloric needs however meets 88% to 110% of est protein needs (with Prostat). Est. Needs: 1650 kcal to 2050 kcal (20-25 kcal/kgBW), 66 gms to 83 gms pro (0.8-1.0 gms/kgBW). Will continue to monitor pertinent labs and reassess nutrient need prn LABS: Gluc 172 H, BUN 57 H, Cr 1.51 H; Alb 2.4 L, HbA1c 10.8 H, SKIN: Estuardo Score 12, high risk, pt's left right lower abdominal fold moisture related dermatitis, intertrigo per RN doc. Pls refer to latest glass selector's notes for further details re: tx plans. GI: Pt's no bowel activity since 04/09/19 per radio frequency design engineer PES: Altered nutrition related lab values RT acute/chronic medical condition AEB hyperglycemia, hyponatremia, hyperkalemia, elev. renal labs, LFTs, HbA1c and severe hypoalbuminemia Increased nutrient needs RT current/chronic medical status AEB intubated, sedated,severe hypoalbuminemia, NPO. Will continue to monitor NPO status, EN tolerance, pertinent labs, skin status and weight trends. F/u in 2 to 3 days. Additional Rec.: 1.) If still NPO with EN support, consider gradual increase on feeding rate of Glucerna 1.2 Bret to 70 ml/hr goal rate as tolerated when medically appropriate. 2.) Consider daily MVI with minerals and Asc acid 500 mgs BID. 3.) If Albumin/Prealbumin improved meeting and tolerating EN support at its goal rate, consider d/c Prostat if medically appropriate. 4.) Advance gradually to oral diet when medically appropriate. 5.) Refer to CDE/RD for further nutrition educ. and weight monitoring upon discharge. 6.) Continue current plan of care.
--- NOTE | 2019-04-23 16:45 | NUR ---
Respiratory note: PLACED PT BACK ON SIMV ON PREVIOUS SETTINGS PER . CPAP TRIAL AGAIN TOMORROW
--- NOTE | 2019-04-23 18:17 | NUR ---
Respiratory note: RECEIVED PT ON VENT. VENT CONNECTED TO RED OUTLET AND O2 SOURCE. ALARMS ARE SET AND AUDIBLE. AMBU BAG AND MASK AT BEDSIDE. BS ARE COURSE SXD MODERATE THICK CREAMY DE JESUS. MED NEB TX GIVEN INLINE WITHOUT ADVERSE REACTION NOTED. RT NAME AND PAGER ASSIGNMENT WRITTEN ON PTS ROOM BOARD. WILL CONTINUE TO MONITOR.
--- NOTE | 2019-04-23 18:30 | NUR ---
BLOOD SUGAR 90 - HUMULIN N DOSE HELD. GLUCERNA RE-STARTED AT 50ML/HR.
--- NOTE | 2019-04-23 20:15 | NUR ---
Respiratory note: AT BEDSIDE FOR ROUTINE VENT CHECK. NO CHANGES MADE AT THIS TIME. BS ARE FINE COURSE SXD FOR MODERATE DE JESUS. WILL CONTINUE TO MONITOR.
[2019-04-23] MEDS ORDERED: BUMETANIDE 2.5mg/10ml (0.25 mg/ml) INJ IV ONE (21:00)
--- NOTE | 2019-04-23 21:04 | NUR ---
FRIEND OF PATIENT THAT DID NOT IDENTIFY BY NAME CALLED FOR UPDATE, DID NOT HAVE PASSWORD. RELATED CALLER TO SPEAK WITH PRINCE. VERBALIZED UNDERSTANDING.
--- NOTE | 2019-04-23 22:10 | NUR ---
MRSA NARES SWAB SENT TO LAB AT THIS TIME.
--- NOTE | 2019-04-23 22:35 | NUR ---
Respiratory note: AT BEDSIDE FOR ROUTINE VENT CHECK. NO CHANGES MADE AT THIS TIME. BS ARE FINE COURSE SXD FOR LARGE AMOUNT OF THICK DE JESUS. WILL CONTINUE TO MONITOR.
[2019-04-24] VITALS (59 sets, daily range): BP systolic 117–167; BP diastolic 38–68
--- NOTE | 2019-04-24 00:12 | NUR ---
Residuals 0 mls of residuals aspirated, continue tf at 50 mls/hr.
--- NOTE | 2019-04-24 00:25 | NUR ---
Respiratory note: AT BEDSIDE FOR ROUTINE VENT CHECK. NO VENT CHANGES MADE AT THIS TIME. HME AND SX CATHETER CHANGED AT THIS TIME. COMMUNICATED WITH RN ABOUT RR, PT HAS NO PRN MEDS TO HELP REDUCE ANXIETY AT THIS TIME. LAVAGE SXD FOR LARGE AMOUNT OF THICK DE JESUS/BROWN. WILL CONTINUE TO MONITOR.
--- NOTE | 2019-04-24 02:35 | NUR ---
Respiratory note: AT BEDSIDE FOR ROUTINE VENT CHECK. NO VENT CHANGES MADE AT THIS TIME. PT APPEARS MORE COMFORTABLE THAN LAST VENT CHECK. WILL CONTINUE TO MONITOR.
--- NOTE | 2019-04-24 03:37 | NUR ---
Central line dressing change Pt shaved and cleaned, central line dressing changed using sterile technique. Dated and initialed as ordered. Pt tolerated well.
--- NOTE | 2019-04-24 03:45 | NUR ---
bed bath/linen change pt given bed bath with linen change. Pt tolerated well. Skin assessed for integrity changes, see wound note for skin changes. Oral care provided. Safety precautions maintained. Pt repositioned for safety and comfort. Will continue with care.
--- NOTE | 2019-04-24 03:55 | NUR ---
Wound photos New skin tear noted on left upper back. Photos taken, Form filled out and placed in wound folder. Optifoam placed on affected area. Pt remains on specialty bed with q2 turns and repositioned.
[2019-04-24 04:30] LABS: Basophils # (auto) 0 uL; Basophils % (auto) 0.3 % (0.0-2.0); Eosinophils # (auto) 0.1 uL; Eosinophils % (auto) 1.1 % (0.0-7.0); Hematocrit 26.2 % (36.0-46.0); Hemoglobin 8.5 g/dL (12.2-16.2); Lymphocytes # (auto) 2.5 uL; Lymphocytes % (auto) 34.2 % (10.0-50.0); Mean Corpuscular Hemoglobin 27.1 pg (28.0-32.0); Mean Corpuscular Hgb Conc. 32.6 g/dL (32.0-36.0); Mean Corpuscular Volume 83.1 fL (80.0-100.0); Monocytes # (auto) 0.5 uL; Monocytes % (auto) 6.3 % (0.0-12.0); Neutrophils # (auto) 4.2 uL; Neutrophils % (auto) 58.1 % (37.0-80.0); Platelet Count (auto) 112 10^3/uL (140-450); Red Blood Cells 3.15 10^6/uL (4.0-5.20); Red Cell Distribution Width 14.7 % (11.8-14.3); White Blood Cell 7.2 10^3/uL (4.4-10.8)
--- NOTE | 2019-04-24 04:38 | NUR ---
Residuals 0 mls of residuals aspirated, continue tf at 50 mls/hr.
[2019-04-24 04:49] LABS: Calcium 8.6 mg/dL (8.5-10.1); Potassium 4.3 mmol/L (3.5-5.1)
[2019-04-24] MEDS: ACCU-CHEK COMFORT CURVE STRIP VI SCH ×4 (05:52→23:53)
[2019-04-24] MEDS: InsuLIN REG 1unit/0.01ml Soln (100units/ml) SC SCH ×4 (05:53→23:54)
[2019-04-24] MEDS: BUMETANIDE 2.5mg/10ml (0.25 mg/ml) INJ IV SCH ×2 (06:04→18:00)
[2019-04-24] MEDS: IPRATROPIUM BROM 0.5 MG/2.5ML INH SOL NEB SCH ×3 (06:19→18:41)
[2019-04-24] MEDS: LEVALBUTEROL HCL 1.25 MG/3 ML NEB NEB SCH ×3 (06:19→18:00)
[2019-04-24] MEDS: INSULIN NPH Isophane (HUMAN) 1unit/0.01ml Susp(100units/ml) SC SCH ×2 (06:40→18:30)
[2019-04-24] MEDS: PROPOFOL 100 ML IV SCH (08:06)
--- NOTE | 2019-04-24 08:10 | NUR ---
DR CASTILLO VISITS AND EXAMINES PATIENT-ORDERS RECEIVED.
--- NOTE | 2019-04-24 08:20 | NUR ---
DR EARL VISITS AND EXAMINES PATIENT- NO NEW ORDERS RECEIVED.
[2019-04-24] MEDS: fentaNYL Drip 2500mCg/250mlNS 250 ML IV SCH (08:49)
[2019-04-24] MEDS: MIDAZOLAM DRIP 50 mg/50mL 50 ML IV SCH (09:15)
--- NOTE | 2019-04-24 10:00 | NUR ---
DR CARD VISITS AND EXAMINES PATIENT - ORDERS RECEIVED.
--- NOTE | 2019-04-24 10:45 | NUR ---
DR DRAKE VISITS AND EXAMINES PATIENT - NO NEW ORDERS RECEIVED.
[2019-04-24] MEDS: Pro-Stat SF 30ml Vanilla GT SCH ×2 (11:15→22:45)
[2019-04-24] MEDS: ENOXAPARIN SOD 30 MG/0.3 ML SYRINGE SC SCH (11:30)
[2019-04-24] MEDS: POTASSIUM EFFERVESENT TAB 25 MEQ GT SCH (11:30)
[2019-04-24] MEDS: FAMOTIDINE (10MG/ML) 2ML VL IV SCH (11:30)
--- NOTE | 2019-04-24 11:50 | NUR ---
INITIATED CPAP TRIAL PER DR ZHANG'S ORDERS. HR 70, RR 28, SPO2 100%, BP 145/47. NOTIFIED RN MICK OF CHANGES. ABG AND WEANING PARAMETERS TO FOLLOW IN ONE HOUR. WILL CONTINUE TO MONITOR.
[2019-04-24] MEDS: DAPTOmycin 500 MG in SODIUM CHL 0.9% 50 ML IV SCH (12:30)
--- NOTE | 2019-04-24 12:56 | NUR ---
I called Dr. Rainey ([phone]) and left message letting him know that I spoke with [facility] Senior Agricultural Assistant yesterday and they are not requesting transfer at this time, and that patient's stay is covered under Medicare due to the fact that she was on hospice prior to admission and that [facility] will come in to effect once patient needs a lower level of care.
--- NOTE | 2019-04-24 13:08 | NUR ---
CPAP WEANING PARAMETERS OBTAINED: NIF -23, RSBI 92, LEAK 153 ML. UNABLE TO OBTAIN VC, PT NOT PARTICIPATING. PT TACHYPNEIC WITH RR 32, VT 346, BUT NO ACCESSORY MUSCLE USE NOTED. ABG DRAWN, RESULTS IN EMR. CALLED DR ZHANG TO REPORT ABG AND WEANING PARAMETERS, LEFT MESSAGE. AWAITING CALL BACK.
--- NOTE | 2019-04-24 13:12 | NUR ---
I received a call back from Dr. Rainey-I let him know that I spoke with Mona at [facility] yesterday. I provided him with the contact information for [facility] per his request.
--- NOTE | 2019-04-24 13:14 | NUR ---
RECEIVED CALL BACK FROM DR ZHANG. REPORTED ABG RESULTS AND WEANING PARAMETERS ON CPAP TRIAL. NO NEW ORDERS RECEIVED. PER MD, PT TO REMAIN ON CPAP TOLERATED UNTIL MD RETURNS BACK TO UNIT THIS AFTERNOON. WILL NOTIFY RN. WILL CONTINUE TO MONITOR.
--- NOTE | 2019-04-24 13:47 | NUR ---
Respiratory note: PT PLACED BACK ON SIMV MODE DUE TO INCREASED RR TO 38-40.
--- NOTE | 2019-04-24 15:20 | NUR ---
NEW VENT ORDERS DR ZHANG BACK IN UNIT. CPAP TRIAL RESULTS REPORTED TO MD. NEW ORDERS RECEIVED. PT NOW WITH VENT SETTINGS: AC, RR 12, VT 500, PEEP +5, FIO2 30%. NO FOLLOW-UP ABG ORDERED. PER MD, PT TO BE ON CPAP MODE WITH PRESSURE SUPPORT 7 / PEEP +5 THROUGHOUT THE DAY, TOLERATED; BACK TO AC MODE FOR NOC. NOTIFIED ISAAC BARTON. WILL ENDORSE PT CARE TO NOC SHIFT RT.
[2019-04-24] MEDS: DexMEDEtomidine 400 MCG in D5W 5% 96 ML IV SCH (18:18)
--- NOTE | 2019-04-24 18:41 | NUR ---
Respiratory note: RECEIVED PT ON VENT [id number], VENT CONNECTED TO RED OUTLET AND O2 SOURCE. ALARMS ARE SET AND AUDIBLE. AMBU BAG AND MASK AT BEDSIDE. BS ARE FINE COURSE IN BILATERAL BASES. SXD FOR MODERATE THICK DE JESUS. MED NEB TX GIVEN INLINE WITHOUT ADVERSE REACTION. RT NAME AND PAGER ASSIGNMENT WRITTEN ON PTS ROOM BOARD. WILL CONTINUE TO MONITOR Q2H AND MORE NEEDED
--- NOTE | 2019-04-24 19:15 | NUR ---
Opening notes Assumed care, awake but not following simple commands, with left-sided weakness, still on vent, no sedation, right IJ central line with only 1 port flushing, palm catheter and flexiseal intact. Glucerna running @ 50 ml/hr. Bed in lowest position with side rails up, bed alarm on. Will continue care.
--- NOTE | 2019-04-24 19:42 | NUR ---
DR CARD NOTIFIED OF PATIENT'S CPAP FAILURE DUE TO RESP RATE IN 'S - STATES HE WILL CALL DR WHEAT TO DECIDE ON POC. Addendum: 04/24/19 at 1944 by Tami Álvarez RN ERROR - CONTACTED AT 1600.
--- NOTE | 2019-04-24 20:15 | NUR ---
Respiratory note: AT BEDSIDE FOR ROUTINE VENT CHECK. NO VENT CHANGE MADE AT THIS TIME.
[2019-04-25] VITALS (55 sets, daily range): BP systolic 106–173; BP diastolic 36–83
--- NOTE | 2019-04-25 00:22 | NUR ---
Respiratory note: AT BEDSIDE FOR ROUTINE VENT CHECK. BS ARE FINE COURSE SXD FOR SMALL THICK DE JESUS. MED NEB TX GIVEN INLINE WITHOUT ADVERSE REACTION NOTED. RN RANDAL AT BEDSIDE. NO VENT CHANGE MADE AT THIS TIME.
--- NOTE | 2019-04-25 02:17 | NUR ---
Respiratory note: AT BEDSIDE FOR ROUTINE VENT CHECK NO VENT CHANGE DONE AT THIS TIME. SXD FOR SCANT CREAMY DEJ ESUS. SX CATHETER CHANGED.
--- NOTE | 2019-04-25 04:00 | NUR ---
Patient bathe/linen change Patient given complete bath. Skin integrity assessed for any changes. Linens changed. Patient repositioned for comfort.
[2019-04-25 04:01] LABS: Basophils # (auto) 0 uL; Basophils % (auto) 0.2 % (0.0-2.0); Eosinophils # (auto) 0.1 uL; Eosinophils % (auto) 0.9 % (0.0-7.0); Hematocrit 27.5 % (36.0-46.0); Hemoglobin 8.8 g/dL (12.2-16.2); Lymphocytes % (auto) 33.6 % (10.0-50.0); Mean Corpuscular Hemoglobin 26.6 pg (28.0-32.0); Mean Corpuscular Hgb Conc. 32.1 g/dL (32.0-36.0); Mean Corpuscular Volume 82.9 fL (80.0-100.0); Monocytes # (auto) 0.5 uL; Monocytes % (auto) 5.7 % (0.0-12.0); Neutrophils # (auto) 5.3 uL; Neutrophils % (auto) 59.6 % (37.0-80.0); Nucleated Red Blood Cells % 0.1 %; Platelet Count (auto) 140 10^3/uL (140-450); Red Blood Cells 3.32 10^6/uL (4.0-5.20); Red Cell Distribution Width 14.6 % (11.8-14.3); White Blood Cell 8.8 10^3/uL (4.4-10.8)
--- NOTE | 2019-04-25 04:22 | NUR ---
Respiratory note: AT BEDSIDE FOR END OF SHIFT VENT CHECK. WILL HAVE DAY SHIFT RT CONTINUE POC.
[2019-04-25 04:24] LABS: Potassium 5.2 mmol/L (3.5-5.1)
[2019-04-25 04:31] LABS: BUN/Creatinine Ratio 40.8; Calcium 8.9 mg/dL (8.5-10.1); Magnesium 2.2 mg/dL (1.6-2.6)
[2019-04-25] MEDS: ACCU-CHEK COMFORT CURVE STRIP VI SCH ×3 (05:32→18:15)
[2019-04-25] MEDS: InsuLIN REG 1unit/0.01ml Soln (100units/ml) SC SCH ×3 (05:32→18:15)
[2019-04-25] MEDS: BUMETANIDE 2.5mg/10ml (0.25 mg/ml) INJ IV SCH ×2 (05:51→18:15)
[2019-04-25] MEDS: INSULIN NPH Isophane (HUMAN) 1unit/0.01ml Susp(100units/ml) SC SCH ×2 (05:51→18:15)
[2019-04-25] MEDS: IPRATROPIUM BROM 0.5 MG/2.5ML INH SOL NEB SCH ×3 (06:28→18:30)
[2019-04-25] MEDS: LEVALBUTEROL HCL 1.25 MG/3 ML NEB NEB SCH ×3 (06:28→18:30)
--- NOTE | 2019-04-25 06:49 | NUR ---
Paged Dr. Rainey and left a voice message re: latest labs, awaiting call back.
--- NOTE | 2019-04-25 07:45 | NUR ---
OPEN Report received from Sarah GRAY, care assumed. Initial assessment complete Patient is alert, opens eyes spontaneously, and tracks movement. Patient does not follow commands. Patient moves upper extremities independently. Afebrile. Patient intubated on ventilator, tolerating well. No s/s of pain or distress. Oxygen saturation 100%. Bowel sounds noted in all quadrants. Flexi-seal in place. Pulses palpable radial and pedal bilaterally. Sinus rhythm on bedside monitor, blood pressure stable. See skin/wound assessment. Stevenson catheter patent, secure, and hung below bladder. Patient on specialty air mattress, frequent turning schedule. Head of bed greater than 30 degrees, bed locked in lowest position, will continue to monitor.
--- NOTE | 2019-04-25 08:00 | NUR ---
TUBE FEEDINGS Residual checked, less than 10 cc present. Continue at same rate.
[2019-04-25] MEDS: PROPOFOL 100 ML IV SCH (08:06)
--- NOTE | 2019-04-25 08:46 | NUR ---
MD VISIT: NEUROLOGY at bedside assessing neuro status.
[2019-04-25] MEDS: fentaNYL Drip 2500mCg/250mlNS 250 ML IV SCH (08:49)
[2019-04-25] MEDS: POTASSIUM EFFERVESENT TAB 25 MEQ GT SCH (10:00)
--- NOTE | 2019-04-25 10:28 | NUR ---
MD VISIT: PCP at bedside assessing patient. MD reviewing medical record. MD is consulting surgical regarding trache placement. MD wishes to speak to regarding consulting the ethic committee regarding future care and code status of patient.
--- NOTE | 2019-04-25 10:30 | NUR ---
CPAP PLACED PT ON CPAP/PRESSURE SUPPORT MODE PER DR ZHANG'S ORDERS. PT TOLERATING FAIRLY. HR 93, RR 26, SPO2 100%. NO RESPIRATORY DISTRESS NOTED AT THIS TIME. ALARMS SET AND AUDIBLE. NOTIFIED ISAAC BOBO OF CHANGES. WILL CONTINUE CPAP TRIAL TOLERATED. WILL CONTINUE TO MONITOR.
[2019-04-25] MEDS: ENOXAPARIN SOD 30 MG/0.3 ML SYRINGE SC SCH (10:56)
[2019-04-25] MEDS: FAMOTIDINE (10MG/ML) 2ML VL IV SCH (10:56)
[2019-04-25] MEDS: Pro-Stat SF 30ml Vanilla GT SCH ×2 (10:56→22:10)
[2019-04-25] MEDS: DAPTOmycin 500 MG in SODIUM CHL 0.9% 50 ML IV SCH (11:14)
--- NOTE | 2019-04-25 11:46 | NUR ---
Nutrition Follow-up Notes Wt.: 85.3 kg today Pt's in isolation room, intubated, non-sedated, no immediate family member at bedside when rounded earlier. Pt's currently NPO with EN support of Glucerna 1.2 Bret @ 50 ml/hr providing 1440 kcal, 72 gms pro 966 ml free water, tolerates feeding, had 10 ml minimal residuals noted by RN this morning. Pt with fair EN support d/t mod initiation rate delivery of concentrated formula aeb current EN infusion meets 70% to 87% of est caloric needs however meets 102% to 123% of est protein needs (with Prostat). Est. Needs: 1650 kcal to 2050 kcal (20-25 kcal/kgBW), 83 gms to 100 gms pro (1.0-1.2 gms/kgBW). Will continue to monitor pertinent labs and reassess nutrient need prn LABS: Gluc 129 H, Cl 111 H, K 5.2 H, BUN 51 H, Cr 1.25 H; Alb 2.4 L, HbA1c 10.8 H SKIN: Estuardo Score 12, high risk, pt's left right lower abdominal fold moisture related dermatitis, intertrigo per RN doc. Pls refer to latest electromedical equipment technician's notes for further details re: tx plans. GI: Pt had 100 ml stool output this morning per geophysical prospecting permit agent PES: Altered nutrition related lab values RT acute/chronic medical condition AEB hyperglycemia, hyponatremia, hyperkalemia, elev. renal labs, LFTs, HbA1c and severe hypoalbuminemia Increased nutrient needs RT current/chronic medical status AEB intubated, sedated,severe hypoalbuminemia, NPO. Will continue to monitor NPO status, EN tolerance, pertinent labs, skin status and weight trends. F/u in 2 to 3 days. Additional Rec.: 1.) If still NPO with EN support, consider gradual increase on feeding rate of Glucerna 1.2 Bret to 70 ml/hr goal rate as tolerated when medically appropriate. 2.) If Albumin/Prealbumin improved meeting and tolerating EN support at its goal rate, consider d/c Prostat if medically appropriate. 3.) Consider daily MVI with minerals and Asc acid 500 mgs BID. 4.) Advance gradually to oral diet when medically appropriate. 5.) Refer to CDE/RD for further nutrition educ. and weight monitoring upon discharge. 6.) Continue current plan of care.
--- NOTE | 2019-04-25 12:00 | NUR ---
SURGICAL CONSENT called for report on patient. MD updated. MD to be notified when two physicians have signed consents for procedure.
--- NOTE | 2019-04-25 12:30 | NUR ---
ENDED CPAP TRIAL PT WITH APNEIC EPISODES, SWITCHED BACK TO AC MODE ON PREVIOUSLY ORDERED SETTINGS. PT TOLERATING CHANGES WELL, NO RESP DISTRESS NOTED. WILL CONTINUE TO MONITOR
--- NOTE | 2019-04-25 12:40 | NUR ---
MD VISIT: PULMONOLOGY at bedside assessing patient and speaking with RT Willis regarding Cpap trial attempts. consenting for tracheostomy placement tomorrow. Awaiting to sign consent. to be notified when consents have been completed.
[2019-04-25] MEDS: MIDAZOLAM DRIP 50 mg/50mL 50 ML IV SCH (13:17)
--- NOTE | 2019-04-25 14:00 | NUR ---
WOUND CARE Wound care performed on left buttocks and left upper back skin tear. Site cleansed with wound cleanser and pat dry. Thera-honey applied with new gentle optifoam. All other dressings are clean, dry intact. Glenda care performed. Complete linen change performed and patient repositioned on side. Patient tolerate activity well. Bed locked in lowest position, alarms in place. Will continue to monitor.
--- NOTE | 2019-04-25 15:37 | NUR ---
SURGICAL UPDATE aware of consents signed. MD ordered for surgery tomorrow morning. Orders placed and OR notified.
--- NOTE | 2019-04-25 16:00 | NUR ---
TUBE FEEDINGS No residuals noted. Continue feeding at same rate.
[2019-04-25] MEDS: Glucerna 1.2 Cal 1Liter BOTTLE GT SCH (17:38)
--- NOTE | 2019-04-25 18:36 | NUR ---
LABS Type and screen obtained as well as PTT/PT/INR sent to lab.
[2019-04-25] MEDS: DexMEDEtomidine 400 MCG in D5W 5% 96 ML IV SCH (19:00)
--- NOTE | 2019-04-25 19:03 | NUR ---
REPORT Report given to Humza GRAY, care endorsed.
[2019-04-25 19:07] LABS: INR 1.07 (0.9-1.15); Partial Thromboplastin Time 25.9 sec (23.64-32.05)
--- NOTE | 2019-04-25 19:30 | NUR ---
Opening Shift Note Received report from day nurse Daina. Assumed care of patient in room 104. Patient is awake and intubated with no sedation. At the moment not receiving IV medication. No S/S of distress/SOB or pain, breathing is unlabored and even. Complete physical assessment documented under interventions. Bed is locked at lowest position and mittens in place to prevent pulling of any lines. Will continue to monitor for changes Q1hr and PRN.
[2019-04-26] VITALS (48 sets, daily range): BP systolic 109–153; BP diastolic 41–93
[2019-04-26] MEDS: ACCU-CHEK COMFORT CURVE STRIP VI SCH ×5 (00:02→23:54)
[2019-04-26] MEDS: InsuLIN REG 1unit/0.01ml Soln (100units/ml) SC SCH ×5 (00:02→23:54)
--- NOTE | 2019-04-26 02:49 | NUR ---
Bed bath/Linen change Bath given using wipes. New gown placed and repositioned to the side to offload from back. Reconnected back to monitor and patient tolerated well. Will continue to monitor.
[2019-04-26 04:00] LABS: Basophils # (auto) 0.1 uL; Eosinophils # (auto) 0.1 uL; Hemoglobin 8.7 g/dL (12.2-16.2); Lymphocytes # (auto) 3.2 uL; Monocytes # (auto) 0.5 uL; Neutrophils # (auto) 3.9 uL; Red Cell Distribution Width 14.8 % (11.8-14.3); White Blood Cell 7.8 10^3/uL (4.4-10.8)
[2019-04-26 04:03] LABS: Basophils % (auto) 0.9 % (0.0-2.0); Eosinophils % (auto) 1.2 % (0.0-7.0); Hematocrit 26.3 % (36.0-46.0); Lymphocytes % (auto) 41.3 % (10.0-50.0); Mean Corpuscular Hemoglobin 27.2 pg (28.0-32.0); Mean Corpuscular Hgb Conc. 33.2 g/dL (32.0-36.0); Neutrophils % (auto) 50.6 % (37.0-80.0); Platelet Count (auto) 278 10^3/uL (140-450)
--- NOTE | 2019-04-26 04:16 | NUR ---
Changed wound dressings Applied thera honey and new dressings. Initialed and dated. Repositioned patient to the side to offset weight to sacral area.
[2019-04-26 04:19] LABS: BUN/Creatinine Ratio 45.4; Magnesium 2.1 mg/dL (1.6-2.6); Potassium 5.2 mmol/L (3.5-5.1)
[2019-04-26 05:18] LABS: INR 1.07 (0.9-1.15); Partial Thromboplastin Time 21.4 sec (23.64-32.05)
[2019-04-26] MEDS: LEVALBUTEROL HCL 1.25 MG/3 ML NEB NEB SCH ×3 (06:14→18:38)
[2019-04-26] MEDS: IPRATROPIUM BROM 0.5 MG/2.5ML INH SOL NEB SCH ×3 (06:14→18:38)
[2019-04-26] MEDS: INSULIN NPH Isophane (HUMAN) 1unit/0.01ml Susp(100units/ml) SC SCH ×2 (06:25→17:48)
[2019-04-26] MEDS: BUMETANIDE 2.5mg/10ml (0.25 mg/ml) INJ IV SCH ×2 (06:32→17:42)
[2019-04-26] MEDS ORDERED: LIDOCAINE W/ EPINEPHRINE 1 % INJ 30ML ONE (07:10)
--- NOTE | 2019-04-26 07:33 | NUR ---
SURGERY wanting to postpone surgery at this time until ethics committee has reviewed patient chart and has approved of plan of care. [place] ICU global category manager notified. will be notified.
--- NOTE | 2019-04-26 07:45 | NUR ---
OPEN Report received from Humaz GRAY, care assumed. Initial assessment complete Patient is alert, opens eyes spontaneously, and tracks movement. Patient does not follow commands at this time. Patient moves upper extremities independently. Afebrile. Patient intubated on ventilator, tolerating well. No s/s of pain or distress. Oxygen saturation 100%. Bowel sounds noted in all quadrants. Flexi-seal in place. Pulses palpable radial. Sinus rhythm on bedside monitor, blood pressure stable. See skin/wound assessment. Stevenson catheter patent, secure, and hung below bladder. Patient on specialty air mattress, frequent turning schedule. Head of bed greater than 30 degrees, bed locked in lowest position, will continue to monitor.
[2019-04-26] MEDS: PROPOFOL 100 ML IV SCH (08:06)
[2019-04-26] MEDS: fentaNYL Drip 2500mCg/250mlNS 250 ML IV SCH (08:49)
--- NOTE | 2019-04-26 09:00 | NUR ---
PAGED paged regarding ethic's committee, awaiting call back.
--- NOTE | 2019-04-26 09:52 | NUR ---
MD VISIT at bedside. MD updated on postpone of surgery. MD attempting to contact regarding ethics committee.
--- NOTE | 2019-04-26 10:15 | NUR ---
ABG Dr. Acuna notified of Cpap ABG results. Unable to obtained weaning parameters. MD would like to extubate patient. Orders placed. CORNELIO RT at bedside.
[2019-04-26] MEDS: ENOXAPARIN SOD 30 MG/0.3 ML SYRINGE SC SCH (10:42)
[2019-04-26] MEDS: Pro-Stat SF 30ml Vanilla GT SCH ×2 (10:42→21:53)
[2019-04-26] MEDS: FAMOTIDINE (10MG/ML) 2ML VL IV SCH (10:42)
--- NOTE | 2019-04-26 12:00 | NUR ---
WOUND CARE UPDATE Bettina rn critical care nurse at bedside reassessing wounds. Wound care performed and complete linen change done. Patient tolerated well. No distress noted.
--- NOTE | 2019-04-26 12:00 | NUR ---
TF Tube feedings restarted.
--- NOTE | 2019-04-26 12:09 | NUR ---
WOUND CARE NOTE: Wound care in to see patient for reevaluation of wounds. Patient continue resting on air bed in ICU bed in Rm. 104. Patient is still intubated, and mechanically ventilated. Patient appears to be in no pain using Ko Mccullough Faces Pain Scale. Her Estuardo score is 12. Skin assessment done with the assistance of patient's nurse, ISAAC Lama. Patient developed blisters to upper and medial back and opened up to partial thickness wounds/skin tear. Upper back skin tear measuring 2x11cm. Medial back skin tear measuring 1.5x1cm. Wounds are red with dark red, dry skin in between skin tears, glenda wound is pink, no drainage/odor noted. Lt. lower buttock/thigh open partial thickness skin tear from MASD measuring 7x5.5cm. Wound bed is mixture of red, pale pink with thin brown slough . Patient has rectal tube in placed with minimal stool leak. Glenda care given, and cleansed lower abdominal fold intertrigo; applied Barrier cream as ordered. Cleansed multiple back and L lower buttock/thigh wounds and changed the dressing as ordered. New photograph of patient's wounds are taken for reference. Patient's bilateral lower leg/shins continue to display multi dry intact scabs, area is clean and dry, left open to air. Patient tolerated well, repositioned for comfort facing her Rt. side, redistributed pressure points with pillows. ISAAC Lama at bedside. RECOMMENDATION: Continuation of all wound care orders prescribed by MD, continue with skin/wound plan of care, continue monitoring by wound care while patient is mechanically ventilated. Addendum: 04/26/19 at 1559 by Vicky Lee RN Amended: Links added.
--- NOTE | 2019-04-26 12:28 | NUR ---
ATTEMPTING TO FIN NEXT OF KIN SPOKE WITH PREVIOUS HOSPICE COMPANY AND SHE STATED PATIENT USED TO BE RESIDENT OF [facility] PRIOR TO SIGNING FOR HOSPICE. SIGNED FOR HOSPICE APR 06 AND REVOKED HOSPICE APR 09 AND CALLED 911 AND ADMITTED TO [facility]. SPOKE WITH [facility] ) AND THEY CONFIRMED PATIENT WAS A RESIDENT. RN ASKED IF THEY HAD NEXT OF KIN INFORMATION AND [facility] REQUESTED A FAX COVER STATING WHAT INFORMATION WE NEEDED BE SENT TO THEM. FAX COVER SHEET TODAY. AWAITING RETURN INFORMATION.
[2019-04-26] MEDS: DAPTOmycin 500 MG in SODIUM CHL 0.9% 50 ML IV SCH (12:48)
[2019-04-26] MEDS: MIDAZOLAM DRIP 50 mg/50mL 50 ML IV SCH (13:17)
--- NOTE | 2019-04-26 13:30 | NUR ---
SURGICAL UPDATE planning to place patient on OR service for Tuesday morning to allow ethics team to consent for surgery. Policy and procedure being evaluated.
--- NOTE | 2019-04-26 13:35 | NUR ---
CPAP TRIAL Armand RIVERS at bedside. placed patient on Cpap trial 09/22. If patient tolerates MD would like to have ABG performed 1 hour.
--- NOTE | 2019-04-26 14:12 | NUR ---
TF Tube feedings held for cpap trial.
[2019-04-26] MEDS ORDERED: LINEZOLID 600MG/300ML 300 ML IV ONE (14:30)
--- NOTE | 2019-04-26 15:20 | NUR ---
EXTUBATE Patient extubated by RT Extubation order received by , RT at bedside. Patient extubated with no problems, patient tolerated well. Patient placed on cool mist mask. Oxygen saturation prior to extubation 100%, following extubation 100%. MD at bedside. No signs of distress or stridor noted. Continue to monitor.
--- NOTE | 2019-04-26 16:38 | NUR ---
MD UPDATE would like to d/c surgical order since patient has been extubated. MD would like to order for GI consult for peg tube placement. paged, message left, awaiting call back.
--- NOTE | 2019-04-26 16:49 | NUR ---
RETURNED PAGE returned paged. would like to have swallow evaluation tomorrow before proceeding with GI consult.
--- NOTE | 2019-04-26 17:58 | NUR ---
OXYGENATION Patient placed on 4 L nasal cannula, oxygen saturation 98%. Will continue to monitor and titrate.
[2019-04-26] MEDS: DexMEDEtomidine 400 MCG in D5W 5% 96 ML IV SCH (19:00)
--- NOTE | 2019-04-26 19:35 | NUR ---
ON-GOING ASSESSMENT Patient observed resting in bed. Patient oxygen saturation 100%, flow rate decreased to 3 L. No signs of pain or distress noted. All other vital signs stable at this time. Bed locked in lowest position, call light within reach. Will continue to monitor.
[2019-04-26] MEDS: LINEZOLID 600MG/300ML 300 ML IV SCH (22:00)
--- NOTE | 2019-04-26 22:00 | NUR ---
OXYGENATION Patient placed on 2 L nasal cannula, oxygen saturation 100%. Patient asleep, no s/s of SOB or pain.
--- NOTE | 2019-04-26 22:43 | NUR ---
MD UPDATE returned page. updated on patient status, MD approved for patient to be downgraded to [facility] unit. Orders placed.
[2019-04-27] VITALS (13 sets, daily range): BP systolic 121–150; BP diastolic 47–68
--- NOTE | 2019-04-27 02:30 | NUR ---
CARES/BED BATH Complete bed bath, gown, and linen change performed. Skin re-assessment complete. Patient repositioned on side. Oral care complete. Deep suctioning performed for patient due to weak non-productive, moist cough. Moderate amount of creamy, thick white sputum removed. Patient now resting, no distress noted.
--- NOTE | 2019-04-27 03:11 | NUR ---
REPORT Report given to Katia GRAY, care endorsed. Patient transferred to [address] [facility] via bed with all personal belongings. Vital signs stable at time of transport.
--- NOTE | 2019-04-27 03:30 | NUR ---
RECEIVED PATIENT IS [facility] DOWNGRADED FROM ICU. PATIENT IS AWAKE, NONVERBAL, SLOWLY FOLLOWS SIMPLE COMMANDS, VERY WEAK. NO SOB, DISTRESS OR PAIN NOTED. PLACED ON 2L N/C. SEBASTIAN CATH IN PLACE DRAINING YELLOW URINE TO GRAVITY. FLEXISEAL IN PLACE DRAINING BROWNISH LOOSE STOOLS. RIGHT IJ 3 LUMEN CATHETER SALINE LOCKED. PHYSICAL ASSESSMENT COMPLETED, SEE INTERVENTIONS. ATTEMPTED TO INSTRUCT ON POC AND TO CALL FOR ASSIST NEEDED. BED IS IN THE LOWEST POSITION WITH SIDE RAILS UP X2, CALL LIGHT IS WITHIN REACH.
[2019-04-27 04:36] LABS: Basophils # (auto) 0 uL; Eosinophils # (auto) 0.1 uL; Monocytes # (auto) 0.8 uL; Nucleated Red Blood Cells % 0.1 %
[2019-04-27 04:39] LABS: Basophils % (auto) 0.1 % (0.0-2.0); Eosinophils % (auto) 0.8 % (0.0-7.0); Hematocrit 28.5 % (36.0-46.0); Hemoglobin 9.3 g/dL (12.2-16.2); Lymphocytes # (auto) 3.3 uL; Mean Corpuscular Hemoglobin 26.7 pg (28.0-32.0); Mean Corpuscular Hgb Conc. 32.6 g/dL (32.0-36.0); Mean Corpuscular Volume 82.1 fL (80.0-100.0); Monocytes % (auto) 8.4 % (0.0-12.0); Neutrophils % (auto) 54.7 % (37.0-80.0); Platelet Count (auto) 179 10^3/uL (140-450); Red Blood Cells 3.47 10^6/uL (4.0-5.20); Red Cell Distribution Width 14.7 % (11.8-14.3); White Blood Cell 9.2 10^3/uL (4.4-10.8)
[2019-04-27 04:46] LABS: BUN/Creatinine Ratio 36.9; Calcium 8.7 mg/dL (8.5-10.1); Potassium 3.9 mmol/L (3.5-5.1)
[2019-04-27] MEDS: InsuLIN REG 1unit/0.01ml Soln (100units/ml) SC SCH ×3 (05:23→17:41)
[2019-04-27] MEDS: PROPOFOL 100 ML IV SCH (05:24)
[2019-04-27] MEDS: ACCU-CHEK COMFORT CURVE STRIP VI SCH ×3 (05:24→17:41)
[2019-04-27] MEDS: INSULIN NPH Isophane (HUMAN) 1unit/0.01ml Susp(100units/ml) SC SCH ×2 (05:24→17:41)
[2019-04-27] MEDS: BUMETANIDE 2.5mg/10ml (0.25 mg/ml) INJ IV SCH (05:25)
[2019-04-27] MEDS: fentaNYL Drip 2500mCg/250mlNS 250 ML IV SCH (05:25)
[2019-04-27] MEDS: IPRATROPIUM BROM 0.5 MG/2.5ML INH SOL NEB SCH ×3 (06:53→18:21)
[2019-04-27] MEDS: LEVALBUTEROL HCL 1.25 MG/3 ML NEB NEB SCH ×3 (06:53→18:21)
--- NOTE | 2019-04-27 07:30 | NUR ---
RECEIVED PATIENT SITTING UP IN THE BED, NON VERBAL BUT WAS ABLE TO WATCH ME WALK AROUND THE ROOM AND WAS ABLE TO SQUEEZE MY HAND WHEN ASK, SEBASTIAN TO GRAVITY, FLEXI SEAL INTACT TO THE RECTUM, RIJ TLC LUMENS FLUSHED AND PATENT, ON AIR MATTRESS,
--- NOTE | 2019-04-27 07:30 | NUR ---
END OF SHIFT REPORT GIVEN AND CARE ENDORSED TO LU GRAY.
--- NOTE | 2019-04-27 08:06 | NUR ---
SWALLOW EVALUATED. PATIENT UNABLE TO INITIATE SWALLOW. BOLUS WAS REMOVED MANUALLY FROM ORAL CAVITY. RECOMMEND NPO AT THIS TIME. NURSING NOTIFIED.
--- NOTE | 2019-04-27 08:30 | NUR ---
DR HENRY INTO SEE THE PATIENT STATES HER KIDNEYS ARE DOING BETER
--- NOTE | 2019-04-27 08:30 | NUR ---
PATIENT WATCHED NICK WALK AROUND THE ROOM WHEN HE WAS SEEING HER
--- NOTE | 2019-04-27 09:30 | NUR ---
SITTING UP IN THE BED WITH EYES CLOSED
[2019-04-27] MEDS: Pro-Stat SF 30ml Vanilla GT SCH ×2 (09:53→21:43)
[2019-04-27] MEDS: FAMOTIDINE (10MG/ML) 2ML VL IV SCH (10:04)
[2019-04-27] MEDS: LINEZOLID 600MG/300ML 300 ML IV SCH ×2 (10:05→21:47)
[2019-04-27] MEDS: ENOXAPARIN SOD 30 MG/0.3 ML SYRINGE SC SCH (10:05)
--- NOTE | 2019-04-27 10:10 | NUR ---
O2 SAT 100% TAKEN OFF TO SEE IF SHE CAN BE ON R/A,, SUCTIONED AND MOUTH AND PERFORMED ORAL CARE. PATIENTS COUGH IS NOT STRONG
--- NOTE | 2019-04-27 10:10 | NUR ---
EXPLAIN MEDICATIONS TO THE PATIENT REGARDING THE DOSAGE, USAGE AND THE SIDE EFFECTS, MEDS GIVEN ORDERED
--- NOTE | 2019-04-27 11:00 | NUR ---
PATIENT STILL TOLERATING BEING ON R/A AND O2 SAT 96%
--- NOTE | 2019-04-27 11:35 | NUR ---
O2 SAT DROPPED TO 87% AND PATIENT WAS COUGHING TRYING TO GET UP SPUTUM, CALLED RT AND ALSO CALLED DR CARD AND GAVE AN ORDER FOR NTS PRN
--- NOTE | 2019-04-27 11:45 | NUR ---
PATIENT SUCTIONED AND REMOVED A LARGE AMOUNT OF SPUTUM FROM THE THROAT,O2 AT 1L BY N/C AND O2 SAT 100%, WILL CONTINUE TO MONITOR
[2019-04-27] MEDS: DAPTOmycin 500 MG in SODIUM CHL 0.9% 50 ML IV SCH (12:42)
--- NOTE | 2019-04-27 12:49 | NUR ---
Nutrition Follow-up Notes Wt.: 84.6 kg today Pt's successfully extubated yesterday, on oxygen via nasal cannula, asleep, no immediate family member at bedside during rounds this morning. Pt's off from EN support, noted pt unable to initiate swallow eval by ST earlier, remains NPO at this time. Pt's previously on EN support of Glucerna 1.2 Bret @ 50 ml/hr providing 1440 kcal, 72 gms pro 966 ml free water and with Prostat 1 carton BID. Est. Needs: 1650 kcal to 2050 kcal (20-25 kcal/kgBW), 83 gms to 100 gms pro (1.0-1.2 gms/kgBW). Will continue to monitor pertinent labs and reassess nutrient need prn LABS: Cl 109 H, BUN 41 H; Alb 2.4 L, HbA1c 10.8 H SKIN: Estuardo Score 11, high risk, pt's left right lower abdominal fold moisture related dermatitis, intertrigo per RN doc. Pls refer to latest tobacco sweeper's notes for further details re: tx plans. GI: Pt had 50 ml stool output this morning per mechanical system technician PES: Altered nutrition related lab values RT acute/chronic medical condition AEB hyperglycemia, hyponatremia, hyperkalemia, elev. renal labs, LFTs, HbA1c and severe hypoalbuminemia Increased nutrient needs RT current/chronic medical status AEB intubated, sedated,severe hypoalbuminemia, NPO. Will continue to monitor NPO status, pertinent labs, skin status and weight trends. F/u in 2 to 3 days. Additional Rec.: 1.) If still NPO, consider to resume EN support of Glucerna 1.2 Bret to 70 ml/hr goal rate as tolerated when medically feasible. 2.) If Albumin/Prealbumin improved meeting and tolerating EN support at its goal rate, consider d/c Prostat if medically appropriate. 3.) Consider daily MVI with minerals and Asc acid 500 mgs BID. 4.) Advance gradually to oral diet (per ST's diet texture recommendation) when medically appropriate. 5.) Refer to CDE/RD for further nutrition educ. and weight monitoring upon discharge. 6.) Continue current plan of care.
--- NOTE | 2019-04-27 13:00 | NUR ---
PATIENT MAINTAINING THE O2 SAT OF 100% ON 1L BY N/C
--- NOTE | 2019-04-27 14:00 | NUR ---
PATIENT STILL DOING OKAY ON THE 1L OF O2 BY THE N/C, SAT 100%
--- NOTE | 2019-04-27 14:28 | NUR ---
SITTING UP IN BED WITH EYES CLOSED, OPENS WHEN I WALK INTO THE ROOM
--- NOTE | 2019-04-27 14:58 | NUR ---
DR CARD IN TO SEE THE PATIENT AND STATES HE IS GOING TO WRITE NEW ORDERS FOR THE PATIENT
[2019-04-27] MEDS: D5W/SOD CHL 0.45% 1,000 ML IV SCH (15:52)
--- NOTE | 2019-04-27 15:58 | NUR ---
PATIENT SHAKING HER HEAD YES AND NO WHEN I ASK HER SIMPLE QUESTIONS, STILL NOT TALKING
--- NOTE | 2019-04-27 16:20 | NUR ---
DR ZHANG IN TO SEE THE PATIENT NO NEW ORDERS
--- NOTE | 2019-04-27 17:12 | NUR ---
SITTING UP IN BED WATCHNG WHEN PEOPLE COMES INTO THE UNIT AND NODDING HER HEAD WHEN YOU TALK TO HER
--- NOTE | 2019-04-27 17:50 | NUR ---
SITTING UP IN BED WATCHING TV, ASK IF SHE WAS COLD AND SHOOK HER HEAD NO
--- NOTE | 2019-04-27 18:27 | NUR ---
BREATHING TREATMENT BEING GIVEN AND PATIENT BEING SUCTIONED TO HELP CLEAN OUT HER THROAT, ON SPECIALITY BED, O2 AT 1L BY N/C , SEBASTIAN TO GRAVITY, FLEXI SEAL INTACT TO THE RECTUM, STILL ALERT AND FOLLOWING COMMANDS, D5.45 AT 100ML/HR INFUSING INTO THE RIJ AT 100ML/HR BY THE IV PUMP, WILL CONTINUE TO MONITOR AND GIVE REPORT THE NEXT SHIFT
--- NOTE | 2019-04-27 20:00 | NUR ---
SHIFT OPENING NOTE PATIENT IS AWAKE, NONVERBAL, TRACKS, DOES NOT FOLLOW COMMANDS. NO SOB, DISTRESS OR PAIN NOTED. ON 1L N/C. SEBASTIAN CATH IN PLACE DRAINING YELLOW URINE TO GRAVITY. FLEXISEAL IN PLACE DRAINING BROWNISH LOOSE STOOLS. RIGHT IJ 3 LUMEN CATHETER SALINE LOCKED. PHYSICAL ASSESSMENT COMPLETED, SEE INTERVENTIONS. ATTEMPTED TO INSTRUCT ON POC AND TO CALL FOR ASSIST NEEDED. BED IS IN THE LOWEST POSITION WITH SIDE RAILS UP X2, CALL LIGHT IS WITHIN REACH.
[2019-04-28] VITALS: BP 147/52
--- NOTE | 2019-04-28 03:15 | NUR ---
CENTRAL Line Dressing Changes CENTRAL line dressing change done with a sterile technique. Cleansed with chloraprep scrub/betadine. Stat lock, and bio-patch as available. Occlusive dressing applied.
--- NOTE | 2019-04-28 03:30 | NUR ---
MORNING HYGIENE CARE FULL BED BATH PERFORMED USING CHG WIPES AND WET SOAPY WASH CLOTHES. GOWN CHANGED. FULL LINEN CHANGED. PATIENT REPOSITIONED FOR COMFORT. TOLERATED IT WELL.
[2019-04-28 04:00] VITALS: BP 133/47
[2019-04-28] MEDS: D5W/SOD CHL 0.45% 1,000 ML IV SCH ×2 (04:29→10:14)
[2019-04-28] MEDS: BUMETANIDE 2.5mg/10ml (0.25 mg/ml) INJ IV SCH (05:15)
[2019-04-28] MEDS: InsuLIN REG 1unit/0.01ml Soln (100units/ml) SC SCH ×4 (05:16→17:50)
[2019-04-28] MEDS: INSULIN NPH Isophane (HUMAN) 1unit/0.01ml Susp(100units/ml) SC SCH ×2 (05:16→17:50)
[2019-04-28] MEDS: ACCU-CHEK COMFORT CURVE STRIP VI SCH ×4 (05:16→17:50)
[2019-04-28 05:53] LABS: Basophils # (auto) 0 uL; Basophils % (auto) 0.2 % (0.0-2.0); Eosinophils # (auto) 0.1 uL; Eosinophils % (auto) 1.2 % (0.0-7.0); Hematocrit 30.2 % (36.0-46.0); Hemoglobin 9.9 g/dL (12.2-16.2); Lymphocytes # (auto) 2.9 uL; Mean Corpuscular Hemoglobin 27.1 pg (28.0-32.0); Mean Corpuscular Hgb Conc. 32.7 g/dL (32.0-36.0); Mean Corpuscular Volume 82.7 fL (80.0-100.0); Monocytes # (auto) 0.9 uL; Monocytes % (auto) 8.5 % (0.0-12.0); Neutrophils # (auto) 6.4 uL; Neutrophils % (auto) 62.1 % (37.0-80.0); Nucleated Red Blood Cells % 0.2 %; Platelet Count (auto) 213 10^3/uL (140-450); Red Blood Cells 3.65 10^6/uL (4.0-5.20); Red Cell Distribution Width 14.7 % (11.8-14.3); White Blood Cell 10.2 10^3/uL (4.4-10.8)
[2019-04-28 06:04] LABS: Calcium 8.7 mg/dL (8.5-10.1); Potassium 3.6 mmol/L (3.5-5.1)
[2019-04-28] MEDS: LEVALBUTEROL HCL 1.25 MG/3 ML NEB NEB SCH ×3 (07:23→18:31)
[2019-04-28] MEDS: IPRATROPIUM BROM 0.5 MG/2.5ML INH SOL NEB SCH ×3 (07:23→18:31)
--- NOTE | 2019-04-28 07:30 | NUR ---
END OF SHIFT REPORT GIVEN AND CARE ENDORSED TO IFTIKHAR RN
[2019-04-28 08:00] VITALS: BP 138/46
--- NOTE | 2019-04-28 08:00 | NUR ---
Opening Shift Note Assumed care of patient, awake, opened her eyes, not talking back, not follow direction. No S/S of distress/SOB or pain. Instructed on POC and try to orientate her with place date time and name, will continue to monitor for changes Q1hr and PRN. Mouth care provided, reposition at this time as well.
--- NOTE | 2019-04-28 08:49 | NUR ---
SWALLOW RE-EVALUATED. PATIENT UNABLE TO INITIATE SWALLOW OR FOLLOW COMMANDS. UNSAFE FOR PO INTAKE. NURSING NOTIFIED.
--- NOTE | 2019-04-28 08:58 | NUR ---
ST at the bedside, will keep NPO.
[2019-04-28] MEDS: Pro-Stat SF 30ml Vanilla GT SCH (09:13)
--- NOTE | 2019-04-28 10:05 | NUR ---
Perineal and palm's catheter care provided due to stool leaking from flexi seal. Reposition at this time, mouth care provided, clear upper air way. Will continue to monitor and care. Patient able to move right arm, still not follow direction, non verbal.
[2019-04-28] MEDS: FAMOTIDINE (10MG/ML) 2ML VL IV SCH (10:13)
[2019-04-28] MEDS: LINEZOLID 600MG/300ML 300 ML IV SCH ×2 (10:13→22:38)
[2019-04-28] MEDS: ENOXAPARIN SOD 30 MG/0.3 ML SYRINGE SC SCH (10:13)
--- NOTE | 2019-04-28 11:00 | NUR ---
PT at the bedside.
[2019-04-28] MEDS: DAPTOmycin 500 MG in SODIUM CHL 0.9% 50 ML IV SCH (11:25)
[2019-04-28 11:54] VITALS: BP 135/47
--- NOTE | 2019-04-28 12:00 | NUR ---
Mouth care provided, direct suction provided, got large sputum came out from suctioning with yellow color. Repositioning at this time as well. Dr. Rainey at the bedside, seen and examined patient at this time, called Dr. Rojas, possible PEG insertion for her nutrition.
--- NOTE | 2019-04-28 12:43 | NUR ---
Re: pain Patient c/o back pain 11/28. Medicated with Tylenol per prn orders. Daughter at bedside. Addendum: 04/28/19 at 1332 by CAROLINA THAYER RN RN Wrong patient
--- NOTE | 2019-04-28 13:20 | NUR ---
Dr. Rojas at the bedside, seen and examined patient at this time, talked to Dr. Rainey on the phone, will try to do PEG placement possible Tuesday. Need 2 MD to sign the consent (not including Dr. Rojas) Dr. Rainey made aware.
--- NOTE | 2019-04-28 14:30 | NUR ---
Staff from Hospice came in at the bedside.
--- NOTE | 2019-04-28 15:12 | NUR ---
Perineal care, palm's catheter care provided after BM. Reposition at this time as well.
--- NOTE | 2019-04-28 15:45 | NUR ---
Changed IV hydration as ordered.
[2019-04-28 15:49] VITALS: BP 113/44
[2019-04-28] MEDS: SODIUM CHLORIDE 0.9% 1,000 ML IV SCH (15:57)
--- NOTE | 2019-04-28 16:40 | NUR ---
Called to give a report. RN will call back. She is on another line with Pharmacist.
--- NOTE | 2019-04-28 17:20 | NUR ---
[facility] pt transferred to floor [facility] transferred to [facility] via Hospital (special) bed on case monitor (Tele #[phone]) and portable 02. All patient medications and personal belongings transferred with patient to receiving floor. Patient care transferred to Riya GRAY.
--- NOTE | 2019-04-28 17:37 | NUR ---
[facility] on portable 02. All patient medications and personal belongings transfered with patient to receiving floor. Patient care transfered.
--- NOTE | 2019-04-28 19:30 | NUR ---
Opening Shift Note Report received from day shift RN. Patient awake sitting in bed and A&O only to self. Patient re-orientated to current situation. Patient attempts to verbalize but is only able to unclearly speak a few words. Patient able to follow commands and answer yes or no questions. No S/S of distress/SOB or pain noted at this time. Stevenson cath in place draining to gravity and free of obstructions. Instructed on POC and will continue to monitor for changes Q1hr and PRN.
--- NOTE | 2019-04-28 21:00 | NUR ---
ORAL CARE PERFORMED. PATIENT CLEANSED AND REPOSITIONED. LINENS CHANGED. PATIENT TOLERATED WELL. WILL CONTINUE TO MONITOR.
[2019-04-28 21:28] VITALS: BP 130/74
[2019-04-29] MEDS: ACCU-CHEK COMFORT CURVE STRIP VI SCH ×4 (00:12→18:00)
[2019-04-29 05:00] VITALS: BP 151/80
[2019-04-29] MEDS: BUMETANIDE 2.5mg/10ml (0.25 mg/ml) INJ IV SCH (05:47)
[2019-04-29] MEDS: InsuLIN REG 1unit/0.01ml Soln (100units/ml) SC SCH ×4 (05:57→18:00)
[2019-04-29] MEDS: INSULIN NPH Isophane (HUMAN) 1unit/0.01ml Susp(100units/ml) SC SCH ×2 (05:57→18:00)
[2019-04-29] MEDS: LEVALBUTEROL HCL 1.25 MG/3 ML NEB NEB SCH ×3 (06:50→19:10)
[2019-04-29] MEDS: IPRATROPIUM BROM 0.5 MG/2.5ML INH SOL NEB SCH ×3 (06:50→19:10)
--- NOTE | 2019-04-29 08:09 | NUR ---
PATIENT IN BED, HEAD OF THE BED ELEVATED, SIDE RAILS UP FOR SAFETY. PATIENT WAS RESTING WITH EYES CLOSED. SEBASTIAN DRAINING TO GRAVITY, RECTAL TUBE IN PLACE. NO SIGNS OF DISTRESS, ALL PROCEDURES EXPLAINED TO PATIENT, WHO DID NOT TRY TO RESPOND AT ALL. WILL CONTINUE TO MONITOR.
[2019-04-29 09:00] VITALS: BP 140/69
[2019-04-29] MEDS: FAMOTIDINE (10MG/ML) 2ML VL IV SCH (10:07)
[2019-04-29] MEDS: LINEZOLID 600MG/300ML 300 ML IV SCH ×2 (10:07→21:36)
[2019-04-29] MEDS: ENOXAPARIN SOD 30 MG/0.3 ML SYRINGE SC SCH (10:08)
--- NOTE | 2019-04-29 10:56 | NUR ---
DRESSING CHANGED OF THE 3 LUMEN CENTRAL LINE ON THE RIGHT JUGULAR. PATIENT TOLERATED WELL. ALL LUMENS FLUSHING PROPERLY. PATIENT TURNED TO THE LEFT TO PREVENT FURTHER SKIN BREAKDOWN.
[2019-04-29] MEDS: SODIUM CHLORIDE 0.9% 1,000 ML IV SCH (11:45)
[2019-04-29] MEDS: DAPTOmycin 500 MG in SODIUM CHL 0.9% 50 ML IV SCH (12:00)
[2019-04-29 13:00] VITALS: BP 139/67
--- NOTE | 2019-04-29 15:00 | NUR ---
WOUND CARE PERFORMED
[2019-04-29 15:11] LABS: BUN/Creatinine Ratio 24.7; Calcium 8.6 mg/dL (8.5-10.1); Potassium 3.4 mmol/L (3.5-5.1)
[2019-04-29 15:23] LABS: INR 1.13 (0.9-1.15); Partial Thromboplastin Time 29.6 sec (23.64-32.05)
[2019-04-29 16:59] VITALS: BP 123/78
--- NOTE | 2019-04-29 18:46 | NUR ---
DR RAMIREZ TALKED TO PATIENT, EXPLAINED PROCEDURE AND PATIENT AGREED WITH HER HEAD TO GET THE PEG TUBE PLACE. ONE SIGNATURE BY DR CARD, SECOND SIGNATURE WILL BE DONE BY ANOTHER DR. SURGERY WILL BE PERFORMED IN THE MORNING OF 04/30/19
[2019-04-29 22:00] VITALS: BP 138/64
[2019-04-30] MEDS: ACCU-CHEK COMFORT CURVE STRIP VI SCH ×4 (00:19→18:24)
--- NOTE | 2019-04-30 05:30 | NUR ---
IV insertion IV access obtained, via clean sterile technique by inserting 22 gauge catheter at right forearm after 1 attempt(s). IV secured properly. No trauma to site. Patient tolerated well.
--- NOTE | 2019-04-30 05:30 | NUR ---
Patient pulled out her Right IJ catheter. Cath found on the bed next to patient. Patient not bleeding out from site. Area covered with dressing. patient educated on need for IV access. Will continue to monitor.
--- NOTE | 2019-04-30 05:45 | NUR ---
Patient given a bed bath, eleuterio care, cleansed with CHG wipes, oral care performed, and total linen changed. Patient tolerated well.
[2019-04-30 05:52] VITALS: BP 132/69
[2019-04-30] MEDS: BUMETANIDE 2.5mg/10ml (0.25 mg/ml) INJ IV SCH (05:56)
[2019-04-30] MEDS: INSULIN NPH Isophane (HUMAN) 1unit/0.01ml Susp(100units/ml) SC SCH ×2 (05:57→18:00)
[2019-04-30] MEDS: InsuLIN REG 1unit/0.01ml Soln (100units/ml) SC SCH ×4 (06:00→18:00)
[2019-04-30] MEDS: IPRATROPIUM BROM 0.5 MG/2.5ML INH SOL NEB SCH ×3 (06:25→18:51)
[2019-04-30] MEDS: LEVALBUTEROL HCL 1.25 MG/3 ML NEB NEB SCH ×3 (06:26→18:50)
[2019-04-30 06:53] LABS: INR 1.08 (0.9-1.15); Partial Thromboplastin Time 25.3 sec (23.64-32.05)
[2019-04-30 06:54] LABS: Basophils # (auto) 0 uL; Basophils % (auto) 0.5 % (0.0-2.0); Hematocrit 31.3 % (36.0-46.0); Monocytes # (auto) 0.7 uL; Neutrophils # (auto) 6.1 uL; White Blood Cell 9.2 10^3/uL (4.4-10.8)
[2019-04-30 06:55] LABS: Eosinophils # (auto) 0 uL; Eosinophils % (auto) 0.5 % (0.0-7.0); Hemoglobin 10.2 g/dL (12.2-16.2); Lymphocytes # (auto) 2.2 uL; Lymphocytes % (auto) 24.2 % (10.0-50.0); Mean Corpuscular Hemoglobin 27.2 pg (28.0-32.0); Mean Corpuscular Hgb Conc. 32.6 g/dL (32.0-36.0); Mean Corpuscular Volume 83.4 fL (80.0-100.0); Monocytes % (auto) 7.9 % (0.0-12.0); Neutrophils % (auto) 66.9 % (37.0-80.0); Platelet Count (auto) 308 10^3/uL (140-450); Red Blood Cells 3.75 10^6/uL (4.0-5.20); Red Cell Distribution Width 14.6 % (11.8-14.3)
[2019-04-30 07:11] LABS: Potassium 3.9 mmol/L (3.5-5.1)
[2019-04-30 07:22] LABS: BUN/Creatinine Ratio 23.6; Calcium 8.9 mg/dL (8.5-10.1); Magnesium 2.1 mg/dL (1.6-2.6)
[2019-04-30] MEDS: SODIUM CHLORIDE 0.9% 1,000 ML IV SCH (07:58)
[2019-04-30] MEDS ORDERED: SODIUM CHLORIDE LOCK 0 ML ONE (08:16)
[2019-04-30] MEDS ORDERED: LIDOCAINE VISCOUS 2% 15ML UD ONE (08:17)
[2019-04-30] MEDS ORDERED: fentaNYL CITRATE 100 MCG/2 ML VL ONE (08:17)
[2019-04-30] MEDS ORDERED: MIDAZOLAM HCL 5 MG/ML-1ML VIAL ONE (08:17)
[2019-04-30] MEDS ORDERED: diphenhdrAMINE HCL 50 MG/1 ML VL ONE (08:18)
--- NOTE | 2019-04-30 08:32 | NUR ---
called down to pre-op re: verification of peg tube placement. spoke to Yudelka GRAY. verification of peg tube achieved.
--- NOTE | 2019-04-30 08:42 | NUR ---
Opening Shift Note Assumed care of patient. Patient awake sitting in bed and A&O only to self. Patient re-orientated to current situation. Patient able to follow commands and answer yes or no questions. No S/S of distress/SOB or pain noted at this time. Stevenson cath in place draining to gravity and free of obstructions. Instructed on POC and will continue to monitor for changes Q1hr and PRN.
[2019-04-30 09:33] VITALS: BP 153/75
[2019-04-30] MEDS: ENOXAPARIN SOD 30 MG/0.3 ML SYRINGE SC SCH (10:23)
[2019-04-30] MEDS: FAMOTIDINE (10MG/ML) 2ML VL IV SCH (10:23)
[2019-04-30] MEDS: LINEZOLID 600MG/300ML 300 ML IV SCH ×2 (10:24→23:00)
[2019-04-30] MEDS: DAPTOmycin 500 MG in SODIUM CHL 0.9% 50 ML IV SCH (12:16)
--- NOTE | 2019-04-30 12:22 | NUR ---
superintendent quarry at bedside. surgery re-scheduled for 05/01 due to Lovenox administration.
[2019-04-30 12:31] VITALS: BP 140/71
--- NOTE | 2019-04-30 14:57 | NUR ---
Nutrition Follow-up Notes Wt.: 85.0 kg today Pt's in isolation room, on oxygen via nasal cannula, asleep, no immediate family member at bedside during rounds this morning. Pt's no signs of distress earlier, remains NPO, noted for PEG tube placement today. Est. Needs: 1650 kcal to 2050 kcal (20-25 kcal/kgBW), 83 gms to 100 gms pro (1.0-1.2 gms/kgBW). Will continue to monitor pertinent labs and reassess nutrient need prn LABS: Gluc 122 H, BUN 23 H; Alb 2.4 L, HbA1c 10.8 H SKIN: Estuardo Score 13, mod risk, pt's left right lower abdominal fold moisture related dermatitis, intertrigo per RN doc. Pls refer to latest ob/gyn physician's notes for further details re: tx plans. GI: Pt had 3x BM 04/28/19 per radar scientist PES: Altered nutrition related lab values RT acute/chronic medical condition AEB hyperglycemia, hyponatremia, hyperkalemia, elev. renal labs, LFTs, HbA1c and severe hypoalbuminemia Increased nutrient needs RT current/chronic medical status AEB intubated, sedated,severe hypoalbuminemia, NPO. Will continue to monitor NPO status, pertinent labs, skin status and weight trends. F/u in 2 to 3 days. Additional Rec.: 1.) If still NPO, consider to resume EN support of Glucerna 1.2 Bret to 70 ml/hr goal rate as tolerated when medically feasible. 2.) Consider daily MVI with minerals and Asc acid 500 mgs BID. 3.) Advance gradually to oral diet (per ST's diet texture recommendation) if medically feasible. 4.) Refer to CDE/RD for further nutrition educ. and weight monitoring upon discharge. 5.) Continue current plan of care.
[2019-04-30 17:43] VITALS: BP 111/56
--- NOTE | 2019-04-30 18:20 | NUR ---
Respiratory note: PT NTS'D AT THIS TIME AFTER MED NEB TX WITH NTS STERILE TECHNIQUE. PT COUGH EFFORT SATISFACTORY. NTS FOR MODERATE, THICK/CREAMY/YELLOW SECRETIONS. NO SIGNS OF ANY RESPIRATORY DISTRESS NOTED. HR 107, RR, 18, SPO2 100% ON 2L NC.
--- NOTE | 2019-04-30 19:10 | NUR ---
Opening Shift Note Received report from domitila Kay RN. Assumed care of patient. Patient is awake laying in bed in a fowlers position. Patient is aphasic but able to follow commands and answer yes or no questions by nodding head. No S/S of distress/SOB or pain noted at this time. Stevenson cath in place draining to gravity and free of obstructions. Flexi-seal intact with runny brown bowel movement. Instructed on POC and will continue to monitor for changes Q1hr and PRN. Bed placed in lowest position, bed alarm turned on and call light within reach.
[2019-04-30 21:16] VITALS: BP 111/56
[2019-04-30 22:00] VITALS: BP 130/64
--- NOTE | 2019-04-30 23:00 | NUR ---
ROUNDS PATIENT'S OXYGEN SATURATION IS 84%. SUCTIONED PATIENT AND SATURATION WENT UP TO 97%. WILL MONITOR.
[2019-05-01] MEDS: ACCU-CHEK COMFORT CURVE STRIP VI SCH ×4 (00:08→18:03)
--- NOTE | 2019-05-01 03:00 | NUR ---
DRESSING CHANGED TO BACK. NO DRAINAGE NOTED. PATIENT TOLERATED WELL
[2019-05-01] MEDS: SODIUM CHLORIDE 0.9% 1,000 ML IV SCH (03:27)
[2019-05-01 05:00] VITALS: BP 143/78
[2019-05-01] MEDS: INSULIN NPH Isophane (HUMAN) 1unit/0.01ml Susp(100units/ml) SC SCH ×2 (05:54→18:00)
[2019-05-01] MEDS: InsuLIN REG 1unit/0.01ml Soln (100units/ml) SC SCH ×4 (05:54→18:00)
[2019-05-01] MEDS: BUMETANIDE 2.5mg/10ml (0.25 mg/ml) INJ IV SCH (05:57)
[2019-05-01] MEDS: LEVALBUTEROL HCL 1.25 MG/3 ML NEB NEB SCH ×3 (06:00→19:40)
[2019-05-01] MEDS: IPRATROPIUM BROM 0.5 MG/2.5ML INH SOL NEB SCH ×3 (06:02→19:40)
--- NOTE | 2019-05-01 07:43 | NUR ---
CHLORHEXIDINE WIPES ADMINISTERED
--- NOTE | 2019-05-01 08:00 | NUR ---
Opening Shift Note Assumed care of patient, awake , unable to make needs know. No S/S of distress/SOB or pain. Turn patient q 2 hours, patient tolerated well. Instructed on POC and to call for assist PRN, will continue to monitor for changes Q1hr and PRN.
[2019-05-01 09:00] VITALS: BP 126/70
[2019-05-01] MEDS: ENOXAPARIN SOD 30 MG/0.3 ML SYRINGE SC SCH (09:36)
[2019-05-01] MEDS: LINEZOLID 600MG/300ML 300 ML IV SCH ×2 (09:36→21:07)
[2019-05-01] MEDS: FAMOTIDINE (10MG/ML) 2ML VL IV SCH (09:36)
--- NOTE | 2019-05-01 11:20 | NUR ---
Patient left to OR.
[2019-05-01] MEDS: DAPTOmycin 500 MG in SODIUM CHL 0.9% 50 ML IV SCH (12:00)
--- NOTE | 2019-05-01 13:00 | NUR ---
UNABLE TO OBTAIN 1300 VITALS . PT IS NOT IN ASSIGNED ROOM AT THIS TIME .
[2019-05-01] MEDS ORDERED: MIDAZOLAM HCL 1MG/1ML-2 ML VIAL ONE (13:49)
[2019-05-01] MEDS ORDERED: SUCCINYLCHOLINE CHLORIDE 20 MG/ML 10ML VIAL IV ONE (13:52)
[2019-05-01] MEDS ORDERED: DexAMETHasone SOD PHOS 10MG/1ML VIAL INJ ONE (14:27)
[2019-05-01] MEDS ORDERED: PROPOFOL 10 MG/ML 20 ML IV ONE (14:27)
[2019-05-01] MEDS ORDERED: ePHEDrine SULFATE 50 MG/ML AMP IV PRN (14:45)
[2019-05-01] MEDS ORDERED: LABETALOL HCL 5 MG/ML 4ML SYRINGE IV PRN (14:45)
[2019-05-01] MEDS ORDERED: ACCU-CHEK COMFORT CURVE STRIP VI ONE (14:45)
[2019-05-01] MEDS ORDERED: FUROSEMIDE 20 MG/2 ML VIAL ONE (15:07)
[2019-05-01] MEDS ORDERED: ALBUTEROL SULF 2.5 MG/0.5ML(0.5%) NEB SOLN ONE (15:07)
[2019-05-01] MEDS: FUROSEMIDE 20 MG/2 ML VIAL IV ONE ×2 (15:08→15:15)
[2019-05-01] MEDS ORDERED: ALBUTEROL SULF 2.5 MG/0.5ML(0.5%) NEB SOLN NEB ONE (15:15)
[2019-05-01] MEDS ORDERED: IPRATROPIUM BROM 0.5 MG/2.5ML INH SOL NEB ONE (15:15)
--- NOTE | 2019-05-01 15:30 | NUR ---
Report given to Maura GRAY [facility].
--- NOTE | 2019-05-01 15:37 | NUR ---
All belongings transferred to [place] [id number] RN made aware.
--- NOTE | 2019-05-01 16:00 | NUR ---
Admit to [facility] TR[facility] received to [facility] from OR s/p PEG insertion via hospital bed on child monitor, and 8 LPM oxygen via oxymizer. Patient transfered to bed, connected to unit monitoring and oxygen, and weighed by bedscale. Patient open eyes spontaneously, obeys simple commands, non-verbal, nods head for yes. Patient saturation 88% to 100%. PEG site asymtomatic, clamped. See interventions for complete assessment. Bed locked on low position, side rails up x2, bed alarms on at all times,will continue to monitor.
[2019-05-01 16:05] VITALS: BP 155/62
[2019-05-01] MEDS ORDERED: FUROSEMIDE 20 MG/2 ML VIAL IV ONE (16:45)
--- NOTE | 2019-05-01 16:45 | NUR ---
Dr Rainey at bedside, updated on patient's status. Patient seen and examined. Received verbal order to give Lasix 20mg IV. Orders read back and verified. Will carry out. spoke to patient's grandson Robbie over the phone, updated grandson on patient's status and POC. MD discussed patient's code status with grandson and discharge plans, Robbie unable to make decisions at this time.
--- NOTE | 2019-05-01 18:00 | NUR ---
Patient saturation 100% at 8 LPM oxygen via oxymizer, decreased oxygen to 6 LPM. Will continue to monitor.
--- NOTE | 2019-05-01 19:11 | NUR ---
Dr Vanessa at bedside, updated on patient's status. Patient seen and examined. No new orders at this time.
[2019-05-01 20:00] VITALS: BP 155/76
--- NOTE | 2019-05-01 20:00 | NUR ---
SHIFT OPENING NOTE RECEIVED PATIENT LAYING IN BED WITH EYES OPEN. DOES NOT SPEAK OR FOLLOW COMMANDS, ON 8L SIMPLE MASK POX 96%. FLEXISEAL AND SEBASTIAN CATH IN PLACE. STATUS POST PEG PLACEMENT. PHYSICAL ASSESSMENT COMPLETED, SEE INTERVENTIONS. ATTEMPTED TO INSTRUCT ON POC, NO VERBAL RESPONSE. WILL CLOSELY MONITOR.
[2019-05-02] VITALS: BP 127/70
[2019-05-02] MEDS: ACCU-CHEK COMFORT CURVE STRIP VI SCH ×4 (01:18→17:51)
[2019-05-02] MEDS: InsuLIN REG 1unit/0.01ml Soln (100units/ml) SC SCH ×4 (01:19→17:52)
--- NOTE | 2019-05-02 02:30 | NUR ---
MORNING HYGIENE CARE FULL BED BATH PERFORMED USING CHG WIPES AND WARM SOAPY WASH CLOTHES. GOWN CHANGED. WOUND CARE PERFORMED TO SACRUM AND BACK. FULL LINEN CHANGED. ORAL CARE DONE. PATIENT REPOSITIONED FOR COMFORT. TOLERATED IT WELL.
[2019-05-02 04:00] VITALS: BP 145/72
[2019-05-02 05:24] LABS: Basophils # (auto) 0 uL; Basophils % (auto) 0.1 % (0.0-2.0); Eosinophils # (auto) 0 uL; Hematocrit 32.7 % (36.0-46.0); Hemoglobin 10.7 g/dL (12.2-16.2); Lymphocytes # (auto) 1.3 uL; Lymphocytes % (auto) 13.3 % (10.0-50.0); Mean Corpuscular Hemoglobin 27.1 pg (28.0-32.0); Mean Corpuscular Hgb Conc. 32.8 g/dL (32.0-36.0); Mean Corpuscular Volume 82.8 fL (80.0-100.0); Monocytes # (auto) 0.3 uL; Monocytes % (auto) 3.3 % (0.0-12.0); Neutrophils # (auto) 8.2 uL; Neutrophils % (auto) 83.3 % (37.0-80.0); Platelet Count (auto) 341 10^3/uL (140-450); Red Blood Cells 3.95 10^6/uL (4.0-5.20); Red Cell Distribution Width 14.9 % (11.8-14.3); White Blood Cell 9.9 10^3/uL (4.4-10.8)
[2019-05-02 05:54] LABS: Calcium 9.1 mg/dL (8.5-10.1); Magnesium 1.8 mg/dL (1.6-2.6); Potassium 3.8 mmol/L (3.5-5.1)
[2019-05-02 05:56] LABS: BUN/Creatinine Ratio 21.2
[2019-05-02] MEDS: BUMETANIDE 2.5mg/10ml (0.25 mg/ml) INJ IV SCH (06:08)
[2019-05-02] MEDS: INSULIN NPH Isophane (HUMAN) 1unit/0.01ml Susp(100units/ml) SC SCH ×2 (06:08→17:51)
[2019-05-02] MEDS: LEVALBUTEROL HCL 1.25 MG/3 ML NEB NEB SCH ×2 (06:56→12:04)
[2019-05-02] MEDS: IPRATROPIUM BROM 0.5 MG/2.5ML INH SOL NEB SCH ×2 (06:56→12:04)
--- NOTE | 2019-05-02 07:30 | NUR ---
END OF SHIFT REPORT GIVEN AND CARE ENDORSED TO SRINIVASA GRAY.
[2019-05-02 07:40] VITALS: BP 106/64
--- NOTE | 2019-05-02 07:45 | NUR ---
OPENING SHIFT NOTE PATIENT RESTING IN BED, OPENS EYES SPONTANEOUSLY WHEN CALLED BY NAME OR SHAKEN, PATIENT TRACKS NURSE BUT DOES NOT FOLLOW COMMANDS. VSS AND DOCUMENTED - PATIENT CURRENTLY ON SIMPLE MASK AT 8 LITERS AND OXYGENATING 100%. WILL COORDINATE WITH R.T. TO DECREASE OXYGEN AND CHANGE TO NASAL CANNULA. FALL AND SAFETY PRECAUTIONS IN PLACE.
--- NOTE | 2019-05-02 09:44 | NUR ---
re-assessment I have spoke with patients sister Marleen [phone] and informed her of the peg placement. Per Marleen she is fine with the decision to peg patient. I also informed her of possible hospice order. I informed Marleen I will call her back once consult has been placed. Marleen agrees. Addendum: 05/02/19 at 1148 by Cherrie PIRES Amended: Links added.
--- NOTE | 2019-05-02 10:09 | NUR ---
HOSPITALIST VISITS DR CARD UPDATED ON PATIENT'S STATUS, LABS AND SOCIAL SERVICE CALL - DR CARD SPOKE WITH MIRTA, MARINE SERVICES TECHNICIAN TO ADDRESS NEXT OF KIN CONTACT AND DISCHARGE PLANNING. DR CARD ORDERED PATIENT OK TO BE DOWNGRADED TO TELE AFTER DR RAMIREZ APPROVES USE OF PEG TUBE AND PATIENT OFF SIMPLE MASK. PATIENT PLACED ON 4 LITERS NASAL CANNULA, TOLERATING WELL, CURRENT OXYGEN SATURATION 98%. WILL NOTIFY Sunil MCKEON DR AWARE.
[2019-05-02] MEDS: ENOXAPARIN SOD 30 MG/0.3 ML SYRINGE SC SCH (10:25)
[2019-05-02] MEDS: FAMOTIDINE (10MG/ML) 2ML VL IV SCH (10:25)
[2019-05-02] MEDS: LINEZOLID 600MG/300ML 300 ML IV SCH ×2 (10:25→21:43)
--- NOTE | 2019-05-02 11:10 | NUR ---
PHYSICAL THERAPY AT BEDSIDE ROM EXERCISES
[2019-05-02 11:40] VITALS: BP 128/68
[2019-05-02] MEDS: DAPTOmycin 500 MG in SODIUM CHL 0.9% 50 ML IV SCH (13:52)
--- NOTE | 2019-05-02 14:00 | NUR ---
DR RAMIREZ AT BEDSIDE/OK TO USE PEG TUBE THIS NURSE LEAVING FOR LUNCH, DR RAMIREZ UPDATED ON PATIENT'S STATUS, AFTER ASSESSMENT - DR RAMIREZ AUTHORIZED USE OF PEG TUBE.
--- NOTE | 2019-05-02 14:21 | NUR ---
Nutrition Follow-up Notes Wt.: 85.0 kg today Pt's in isolation room, asleep, no immediate family member at bedside during rounds this morning. Pt's no signs of distress earlier, pt scheduled to resume EN support with Glucerna 1.2 @ 70 ml/hr goal. Will monitor and follow up prn. Est. Needs: 1650 kcal to 2050 kcal (20-25 kcal/kgBW), 83 gms to 100 gms pro (1.0-1.2 gms/kgBW). Will continue to monitor pertinent labs and reassess nutrient need prn LABS: Gluc 179 H, BUN 22 H; CR 1.04 H; Alb 2.4 L, HbA1c 10.8 H SKIN: Estuardo Score 13, mod risk, pt's left right lower abdominal fold moisture related dermatitis, intertrigo, multiple skin tears per RN doc. Pls refer to latest cut file clerk's notes for further details re: tx plans. GI: Pt had 400ml output on 05/02/19 per rn documentation PES: Altered nutrition related lab values RT acute/chronic medical condition AEB hyperglycemia, hyponatremia, hyperkalemia, elev. renal labs, LFTs, HbA1c and severe hypoalbuminemia Increased nutrient needs RT current/chronic medical status AEB intubated, sedated,severe hypoalbuminemia, NPO. Will continue to monitor NPO status, pertinent labs, skin status and weight trends. F/u in 2 to 3 days. Additional Rec.: 1.) If still NPO, consider to resume EN support of Glucerna 1.2 Bret to 70 ml/hr goal rate as tolerated when medically feasible. 2.) Consider daily MVI with minerals and Asc acid 500 mgs BID. 3.) Advance gradually to oral diet (per ST's diet texture recommendation) if medically feasible. 4.) Refer to CDE/RD for further nutrition educ. and weight monitoring upon discharge. 5.) Continue current plan of care.
[2019-05-02] MEDS: MAGNESIUM SULFATE 1GM/100ML 100 ML IV SCH ×2 (14:29→16:21)
[2019-05-02 15:45] VITALS: BP 128/70
[2019-05-02] MEDS ORDERED: Glucerna 1.2 Cal 1Liter BOTTLE PEG SCH (17:00)
--- NOTE | 2019-05-02 19:34 | NUR ---
END OF SHIFT NOTE PATIENT RESTING IN BED, ALERT TO SELF AND NODDED HEAD YES ONCE WHEN ASKED IF SHE WAS COLD. PATIENT CURRENTLY ON 2 LITERS OXYGEN VIA NASAL CANNULA, NO DISTRESS NOTED, RESPIRATIONS EVEN AND UNLABORED. VSS STABLE AND DOCUMENTED. PATIENT CURRENTLY TELE STATUS, PEG TUBE FEEDING RECEIVED FROM DIETARY AND STARTED AT A RATE OF 20 MLS/HR. FALL AND SAFETY PRECAUTIONS IN PLACE, ENDORSED CONTINUED CARE TO PORTAL ARCHITECT RN.
--- NOTE | 2019-05-02 19:40 | NUR ---
PATIENT RESTING IN BED WITH EYES OPEN, APHASIC, BUT IS ABLE TO FOLLOW COMMANDS (SQUEEZE RIGHT HAND AND WHEN ASKED TO), NODS NO AND YES TO QUESTIONS AND VISUALLY TRACKS.COMPLETE PHYSICAL ASSESSMENT DONE: SEE INTERVENTIONS. GLUCERNA PEG TUBE FEEDINGS INFUSING AT 20CC/HR , TOLERATING WELL WITH 5CC RESIDUAL. PT IS DOWNGRADED TO TELE, AWAITING FOR TELE ROOM. CONTINUE POC AND MONITORING.
[2019-05-02 20:00] VITALS: BP 111/56
--- NOTE | 2019-05-02 22:21 | NUR ---
REPORT ENDORSED TO BAND DIRECTOR,ALL QUESTIONS CONCERNS ADDRESSED
--- NOTE | 2019-05-02 22:30 | NUR ---
ME[facility] pt transferred to floor [facility] TRIPATHI transferred to 206 via bed on global project manager and portable 02. All patient medications and personal belongings transferred with patient to receiving floor. Patient care transferred to Lauren GRAY. NOTE: No distress/SOB or pain noted on departure.
--- NOTE | 2019-05-02 22:45 | NUR ---
Received patient from [facility]: Received report and the patient from ME[facility]. Patient resting in bed with breaths even and unlabored. No pain noted. To turn [id number]. Suction at the bedside and resumed patients peg tube feedings. Patient on 2 liters nasal cannula.
[2019-05-03 05:34] VITALS: BP 154/83
[2019-05-03] MEDS: BUMETANIDE 2.5mg/10ml (0.25 mg/ml) INJ IV SCH (06:05)
[2019-05-03] MEDS: ACCU-CHEK COMFORT CURVE STRIP VI SCH ×4 (06:23→17:47)
[2019-05-03] MEDS: InsuLIN REG 1unit/0.01ml Soln (100units/ml) SC SCH ×4 (06:27→17:51)
[2019-05-03] MEDS: LEVALBUTEROL HCL 1.25 MG/3 ML NEB NEB SCH ×3 (06:37→19:08)
[2019-05-03] MEDS: IPRATROPIUM BROM 0.5 MG/2.5ML INH SOL NEB SCH ×3 (06:38→19:08)
[2019-05-03] MEDS: INSULIN NPH Isophane (HUMAN) 1unit/0.01ml Susp(100units/ml) SC SCH ×2 (07:02→17:51)
--- NOTE | 2019-05-03 08:00 | NUR ---
Assumed care of the patient, lethargic and aphasic, not in respiratory distress. Patient is bedbound, turning to sides every 2 hours. Will continue to monitor.
[2019-05-03 09:00] VITALS: BP 119/51
[2019-05-03] MEDS: LINEZOLID 600MG/300ML 300 ML IV SCH ×2 (10:29→22:01)
[2019-05-03] MEDS: FAMOTIDINE (10MG/ML) 2ML VL IV SCH (10:29)
[2019-05-03] MEDS: ENOXAPARIN SOD 30 MG/0.3 ML SYRINGE SC SCH (10:29)
[2019-05-03 13:00] VITALS: BP 118/52
[2019-05-03] MEDS: DAPTOmycin 500 MG in SODIUM CHL 0.9% 50 ML IV SCH (13:49)
--- NOTE | 2019-05-03 15:28 | NUR ---
Patient is for hospice evaluation prior to discharge.
--- NOTE | 2019-05-03 16:49 | NUR ---
Home hospice will be discussed to the patient's sister.
[2019-05-03 17:00] VITALS: BP 110/49
--- NOTE | 2019-05-03 18:00 | NUR ---
Novolin 10 units SC held for Accucheck-94.
--- NOTE | 2019-05-03 18:15 | NUR ---
Wound photos taken.
[2019-05-03 18:41] VITALS: BP 110/49
--- NOTE | 2019-05-03 19:30 | NUR ---
Opening Shift Note Assumed care of patient, resting in bed with breaths even and unlabored. No S/S of distress/SOB or pain noted. To turn patient [id number]. Peg tube feedings implemented. Patient is aphasic. Continue to monitor.
[2019-05-03 22:00] VITALS: BP 137/62
--- NOTE | 2019-05-03 23:33 | NUR ---
Called DR Rainey: Called Dr. Rainey at this time. Patient had difficulty expelling secretions. Notified RT. Left message with Doctor Rainey for a renewed order for tracheal suction. Waiting for call back.
[2019-05-04] MEDS: ACCU-CHEK COMFORT CURVE STRIP VI SCH ×4 (00:02→17:52)
[2019-05-04] MEDS: InsuLIN REG 1unit/0.01ml Soln (100units/ml) SC SCH ×4 (00:03→17:52)
--- NOTE | 2019-05-04 02:00 | NUR ---
V-Tach: Received call from desk monitordiesel truck technician regarding patient having runs of V-tach. Obtained EKG strip. Vital signs obtained, Blood pressure 133/68, heart rate 91, oxygen saturations 100%, 20 respiratory rate. To notify
--- NOTE | 2019-05-04 02:10 | NUR ---
ABNORMAL EKG TAKEN TO HOSPITALIST: Took abnormal EKG to hospitalist after comparing to old EKG, EKG signed. Orders received. To call Territory Manager General Sales Anum who has seen the patient and MD Rainey about patients status, Vitals, run of V-tack and EKGs.
--- NOTE | 2019-05-04 02:20 | NUR ---
Called DR Rainey: Called Dr. Rainey at this time to notify of runs of V-tach, patients status and abnormal EKG strips. Waiting for call back.
--- NOTE | 2019-05-04 02:25 | NUR ---
Called DR Rowan: Called Dr. Rowan at this time to notify of patients runs of V-Tack and abnormal EKG strips. Waiting for call back.
[2019-05-04 05:00] VITALS: BP 154/73
[2019-05-04] MEDS: BUMETANIDE 2.5mg/10ml (0.25 mg/ml) INJ IV SCH (06:00)
[2019-05-04] MEDS: INSULIN NPH Isophane (HUMAN) 1unit/0.01ml Susp(100units/ml) SC SCH ×2 (06:50→17:52)
[2019-05-04] MEDS: IPRATROPIUM BROM 0.5 MG/2.5ML INH SOL NEB SCH ×3 (07:24→18:27)
[2019-05-04] MEDS: LEVALBUTEROL HCL 1.25 MG/3 ML NEB NEB SCH ×3 (07:24→18:27)
[2019-05-04 08:30] VITALS: BP 146/75
[2019-05-04] MEDS: FAMOTIDINE (10MG/ML) 2ML VL IV SCH (09:42)
[2019-05-04] MEDS: ENOXAPARIN SOD 30 MG/0.3 ML SYRINGE SC SCH (09:42)
[2019-05-04] MEDS: LINEZOLID 600MG/300ML 300 ML IV SCH (09:43)
--- NOTE | 2019-05-04 10:27 | NUR ---
Spoke with Keyonna of case management, discharge planning on hospice is still on process. Will get update later.
--- NOTE | 2019-05-04 10:28 | NUR ---
Rectal tube removed as ordered by Dr. Rainey.
--- NOTE | 2019-05-04 11:20 | NUR ---
MRSA Swab nares sent to Lab.
[2019-05-04] MEDS: DAPTOmycin 500 MG in SODIUM CHL 0.9% 50 ML IV SCH (13:10)
[2019-05-04 15:20] VITALS: BP 146/75
--- NOTE | 2019-05-04 15:20 | NUR ---
D/C Planning Per consult for hospice evaluation. Faxed orders to [facility]. Per Sil with [facility] they are unable to accept patient. Order was redirected to [facility] Fax:) Ph:). Placed followed up called to Daria with [facility]. Per Daria they will accept patient upon d/c day. Transportation has been arrange with [facility] via gurney with oxygen car pick up driver time will be 16:30. ISAAC Lloyd was informed.
--- NOTE | 2019-05-04 15:54 | NUR ---
Received a call from Cherrie of case management, patient will no longer be discharged on home hospice. Will then be discharged to SNF after discussion and coordination with family members. Left a message to Dr. Rainey, waiting for call back.
--- NOTE | 2019-05-04 16:15 | NUR ---
D/C Planning Per SS consult for SNF Placement. Faxed orders to [facility] and requested for them to follow up with Targeting Acquisition Officer social service senior office assistant at [facility] ext [phone] Fax:( [phone]). Placed followed up called to [facility], spoke to Robert Gleason. Per Rosibel order was received and they will look for placement. Pending on SNF.
[2019-05-04 17:01] VITALS: BP 112/66
--- NOTE | 2019-05-04 17:52 | NUR ---
Kadie-91, held Fina Vazquez
--- NOTE | 2019-05-04 19:40 | NUR ---
Opening Shift Note Assumed care of patient, resting in bed with breaths even and unlabored. No S/S of distress/SOB or pain noted. To turn patient [id number]. Peg tube feedings implemented. Patient is aphasic. Continue to monitor
[2019-05-04 21:41] VITALS: BP 107/56
[2019-05-05] MEDS: ACCU-CHEK COMFORT CURVE STRIP VI SCH ×4 (00:24→18:06)
[2019-05-05 05:00] VITALS: BP 100/53
[2019-05-05] MEDS: BUMETANIDE 2.5mg/10ml (0.25 mg/ml) INJ IV SCH (06:03)
[2019-05-05] MEDS: InsuLIN REG 1unit/0.01ml Soln (100units/ml) SC SCH ×4 (06:13→18:00)
[2019-05-05] MEDS: IPRATROPIUM BROM 0.5 MG/2.5ML INH SOL NEB SCH ×3 (06:37→18:44)
[2019-05-05] MEDS: LEVALBUTEROL HCL 1.25 MG/3 ML NEB NEB SCH ×3 (06:37→18:44)
[2019-05-05] MEDS: INSULIN NPH Isophane (HUMAN) 1unit/0.01ml Susp(100units/ml) SC SCH ×2 (06:46→18:34)
--- NOTE | 2019-05-05 07:05 | NUR ---
OPENING SHIFT NOTES Assumed care of patient from wire twisting machine operator RN. Patient is resting in bed, no signs of distress noted. Patient is currently receiving oxygen at 4L/min via nasal cannula, respirations are even and unlabored. Patient is receiving tube feedings at 30ml/hr. Patient has a palm draining clear yellow urine to gravity. Bed is locked, in the lowest position, side rails upx4 and call light is in reach. Will continue to monitor patient q1H and prn.
[2019-05-05 09:00] VITALS: BP 124/62
[2019-05-05] MEDS: FAMOTIDINE (10MG/ML) 2ML VL IV SCH (10:28)
[2019-05-05] MEDS: ENOXAPARIN SOD 30 MG/0.3 ML SYRINGE SC SCH (10:28)
[2019-05-05 13:00] VITALS: BP 140/71
--- NOTE | 2019-05-05 13:08 | NUR ---
WOUND CARE NOTE: Wound care in to see patient for reevaluation of wounds. Patient has been extubated and now in [facility]/telemetry unit. Patient continue resting on air bed in Rm. 206. Patient is awake, and nods when given direction. Patient appears to be in no pain using Ko Mccullough Faces Pain Scale. Her Estuardo score is 10. Skin assessment done with the assistance of patient's nurse, ISAAC Ward. Patient's bilateral lower leg/shins continue to display multi dry intact scabs, area is clean and dry, left open to air. Patient's multi partial thickness wounds/skin tears from opened blisters to her upper and medial back are now dry with pink scar tissue. Lt. lower buttock/thigh open wound from MASD is resolving as well. L thigh/lower buttock wound measuring 6.5 x 4cm with thin brown scab, eleuterio wound is pink, no drainage/odor noted. Rectal tube has been discontinued and her perirectal continue to display resolving wounds from MASD. Cleansed all wounds, photograph taken for reference, and changed the dressing as ordered. Patient tolerated well, repositioned bed in sitting position. All safety precautions in placed. RECOMMENDATION: Continuation of all wound care orders prescribed by MD, continue with skin/wound plan of care, continue monitoring by wound care while patient is hospitalized. Addendum: 05/05/19 at 1836 by Vicky Lee RN Amended: Links added.
--- NOTE | 2019-05-05 15:06 | NUR ---
Call from [facility] Patient going to [facility], room 513, call report to .
[2019-05-05 17:00] VITALS: BP 124/64
--- NOTE | 2019-05-05 18:06 | NUR ---
PT IS UNABLE TO PARTICIPATE IN P.T. PATIENT WILL BE ADMITTED ON HOSPICE. D/C FROM P.T.
[2019-05-05 18:40] VITALS: BP 124/64
--- NOTE | 2019-05-05 18:50 | NUR ---
Report called to Neno at [facility]
--- NOTE | 2019-05-05 19:00 | NUR ---
Closing note care endorsed to maintenance technician 3rd shift RN.
--- NOTE | 2019-05-05 20:00 | NUR ---
Opening Shift Note Assumed care of patient, awake and alert. No S/S of distress/SOB or pain. Instructed on POC and to call for assist PRN, will continue to monitor for changes Q1hr and PRN. Glucerna feeding @ 30cc/hour. No abdominal distention; feeding tolerated well. Bed in low position; side rails up. Awaiting tile picker from [facility] for transfer to [facility].
[2019-05-05 21:33] VITALS: BP 104/63
--- NOTE | 2019-05-05 22:30 | NUR ---
Patient discharged and transferred to [facility] via [facility] staff. No distress noted. IV to right hand discontinued.
== END 2019-05-05 22:30 | DRG 870 ==
LOC: ER 06:08 → EDUNIT# 06:08 → TELE 06:09 → ICU WEST 16:10 → DOU IN ICU 04-27 03:38 → TELE-EAST 04-28 17:37 → DOU IN ICU 05-01 16:15 → TELE-CENTR 05-03 00:03
PROVIDERS: ADMIT Nurse Practitioner Acute Care; ATTEND Internal Medicine Geriatric Medicine
PROC: 5A1955Z Respiratory Ventilation, Greater than 96 Consecutive Hours (ICD-10-PCS; principal; 2019-04-09)
PROC: 02HV33Z Insertion of Infusion Device into Superior Vena Cava, Percutaneous Approach (ICD-10-PCS; 2019-04-09)
PROC: 0BH17EZ Insertion of Endotracheal Airway into Trachea, Via Natural or Artificial Opening (ICD-10-PCS; 2019-05-01)
PROC: 0DH63UZ Insertion of Feeding Device into Stomach, Percutaneous Approach (ICD-10-PCS; 2019-05-01)
DX: A41.9 Sepsis, unspecified organism (principal); N17.0 Acute kidney failure with tubular necrosis; R65.21 Severe sepsis with septic shock; J96.21 Acute and chronic respiratory failure with hypoxia; J15.212 Pneumonia due to Methicillin resistant Staphylococcus aureus; G93.41 Metabolic encephalopathy; J96.22 Acute and chronic respiratory failure with hypercapnia; I13.0 Hypertensive heart and chronic kidney disease with heart failure and stage 1 through stage 4 chronic kidney disease, or unspecified chronic kidney disease; J44.0 Chronic obstructive pulmonary disease with (acute) lower respiratory infection; N39.0 Urinary tract infection, site not specified; E87.4 Mixed disorder of acid-base balance; G93.1 Anoxic brain damage, not elsewhere classified; I69.354 Hemiplegia and hemiparesis following cerebral infarction affecting left non-dominant side; L03.90 Cellulitis, unspecified; N18.3 Chronic kidney disease, stage 3 (moderate); E11.22 Type 2 diabetes mellitus with diabetic chronic kidney disease; E87.5 Hyperkalemia; E87.6 Hypokalemia; E83.42 Hypomagnesemia; I25.10 Atherosclerotic heart disease of native coronary artery without angina pectoris; I50.9 Heart failure, unspecified; R13.10 Dysphagia, unspecified; Z51.5 Encounter for palliative care; F03.90 Unspecified dementia, unspecified severity, without behavioral disturbance, psychotic disturbance, mood disturbance, and anxiety; E11.65 Type 2 diabetes mellitus with hyperglycemia; F17.210 Nicotine dependence, cigarettes, uncomplicated; J45.909 Unspecified asthma, uncomplicated; E78.5 Hyperlipidemia, unspecified; Z90.49 Acquired absence of other specified parts of digestive tract; Z88.0 Allergy status to penicillin; Z79.899 Other long term (current) drug therapy; Z79.84 Long term (current) use of oral hypoglycemic drugs
CPT/HCPCS: 31500; 36415; 36556; 36600; 43246; 70450; 71045; 80048; 80053; 80202; 81001; 82306; 82570; 82805; 82962; 83036; 83605; 83735; 83880; 84100; 84132; 84156; 84300; 84484; 85007; 85025; 85027; 85610; 85730; 86850; 86900; 86901; 87040; 87070; 87077; 87081; 87086; 87088; 87147; 87186; 87205; 92507; 92610; 93005; 93306; 93926; 94002; 94003; 94640; 95819; 96361; 96365; 96375; 97110; 97163; 97530; 99291; G0378; J0330; J0696; J1100; J1450; J1815; J1956; J2250; J2704; J3480; J3490; J7060